=== PATIENT | female | born 1990 | race Caucasian/White ===

== ENCOUNTER 2017-01-26 21:02 | Emergency (ER) | payer OTHER ==
[2017-01-26 21:10] VITALS: BP 128/91; BMI 36.4
[2017-01-26] MEDS ORDERED: ROCEPHIN VIAL 1 GM IM ONE (21:54)
[2017-01-26] MEDS ORDERED: ROCEPHIN VIAL 1 GM ONE (21:56)
--- NOTE | 2017-01-26 21:56 | DR.GENAD ---
HPI - PCP Primary Care Physician: NONE - Complaint/Symptoms Chief Complaint Doctors Comments: Patient reports that she got a sore on her right hip for five days. Rosas not know how it happened. It is sore to touch. Pain is sharp, no fever Chief Complaint:: BITE ABOVE BUTT CHEEK. ONSET SUNDAY. C/O N/V AND FEVER. DENIES ANY DRAINAGE. Self Treatment fo Chief Complaint: TRIED HEAT - Source History Provided: Patient - Mode of Arrival Mode of Arrival: Ambulatory - Timing Onset of Chief Complaint: 01/24/17 PMH - PMH Past Medical History: No Past Medical History: Migraines (for many years ) Past Surgical History: Yes Surgical History: Appendectomy, Cholecystectomy Past Surgical History Comment: LIDIA (2013). EMA (2014) - Family History History of Family Medical Conditions: No Family Medical History: Diabetes Mellitus, [place], Coronary Artery Disease - Social History Does patient currently use any type of tobacco product: No Have you used tobacco products in the last 12 months: No Type of Tobacco Use: None Alcohol Use: None Do you use any recreational Drugs:: No Lives With: Spouse Lives Where: Home - infectious screening Have you traveled outside the country in the last 6 months?: No Isolation: Standard ROS - Review of Systems Constitutional: Diaphoresis ENTM: No Symptoms Reported Respiratoy: No Symptoms Reported Cardiovascular: No Symptoms Reported Gastrointestinal/Abdominal: No Symptoms Reported Genitourinary: No Symptoms Reported Neurological: No Symptoms Reported Musculoskeletal: No Symptoms Reported Integumentary: Lesions (erythematous non fluctuant lesion right hip) Hematologic/Lymphatic: No Symptoms Reported Endocrine: No Symptoms Reported Psychiatric: No Symptoms Reported All Other Systems: Reviewed and Negative PE - Vital Signs Vitals: Temperature 98.3 F Pulse Rate 94 Respiratory Rate 18 Blood Pressure 128/91 O2 Sat by Pulse Oximetry 99 - General Limitations: No Limitations General Appearance: Alert, In No Apparent Distress - Head Head Exam: Normal Inspection, Atraumatic - Eyes Eye exam: Normal Appearance, PERRL, EOMI - ENT ENT Exam: Normal Exam External Ear Exam: Normal External Inspection TM/Canal Exam: Bilateral Normal Nose Exam: Normal Nose Exam Mouth Exam: Normal Inspection - Neck Neck Exam: Normal Inspection - Chest Chest Inspection: Normal Inspection - Respiratory Respiratory Exam: Normal Lung Sounds Bilat Respiratory Exam: Bilateral Clear to Auscultation - Cardiovascular Cardiovascular Exam: Regular Rate, Normal Rhythm - Abdominal Exam Abdominal Exam: Normal Inspection, Normal Bowel Sounds Abdominal Tenderness: negative: RUQ, RLQ, LUQ, LLQ, Epigastrium, Suprapubic, Diffuse, Mild, Moderate, Severe, Other - Extremities Extremities Exam: Normal Inspection, Full ROM - Back Back Exam: Tenderness (right superior hip; erythematous non fluctuant firm mass ) - Neurologic Neurological Exam: Alert, Oriented X3, CN II-XII Intact - Psychiatric Psychiatric Exam: Normal Affect, Normal Mood - Skin Skin Exam: Warm, Dry Course - Treatment Treatment: Ceftriaxone 1gm IM - Diagnosis Discharge Problem: Cellulitis Qualifiers: Site of cellulitis: buttock Qualified Code(s): L03.317 - Cellulitis of buttock - Discharge Plan Condition: Stable - Follow ups/Referrals Follow ups/Referrals: NFD,None [Primary Care Provider] - 3 days - Instructions
== END 2017-01-26 22:18 | disposition home or self-care (01) ==
LOC: ER 21:18
DX: L03.317 Cellulitis of buttock (principal)
CPT/HCPCS: 96372; 99282; J0696

== ENCOUNTER 2017-09-21 15:23 | Emergency (ER) | payer SELFPAY ==
[2017-09-21 15:28] VITALS: BP 124/85; BMI 37.3
[2017-09-21 16:02] LABS: BILIRUBIN,URINE NEGATIVE (NEGATIVE); BLOOD/HEMOGLOBIN,URINE 1+ (NEGATIVE); GLUCOSE, URINE NEGATIVE (NEGATIVE); KETONES,URINE NEGATIVE (NEGATIVE); LEUKOCYTE ESTERASE ,URINE NEGATIVE (NEGATIVE); NITRITES,URINE NEGATIVE (NEGATIVE); PROTEIN,URINE NEGATIVE (NEGATIVE); UROBILINOGEN,URINE NORMAL (NORMAL)
[2017-09-21 16:15] LABS: APPEARANCE,URINE CLEAR (CLEAR); COLOR,URINE YELLOW (YELLOW)
[2017-09-21 16:16] LABS: RBC,URINE 0-2 /HPF (NONE SEEN)
[2017-09-21 16:17] LABS: BACTERIA,URINE NEGATIVE /HPF (NEGATIVE); SQUAMOUS EPITHELIAL CELL,UR FEW /HPF (NEGATIVE)
[2017-09-21 16:34] LABS: BASOPHILS # (AUTO) 0.1 X10^3/uL (0.0-0.1); BASOPHILS % (AUTO) 0.8 % (0.2-1.0); EOSINOPHILS % (AUTO) 0.6 % (0.9-2.9); HEMATOCRIT 40.3 % (36.0-47.0); HEMOGLOBIN 13.7 g/dL (12.0-16.0); LYMPHOCYTES # (AUTO) 1.8 X10^3/uL (1.3-2.9); LYMPHOCYTES % (AUTO) 26.6 % (21.0-51.0); MEAN CORPUSCULAR HEMOGLOBIN 28.6 pg (27.0-34.0); MEAN CORPUSCULAR HGB CONC 34.1 g/dL (33.0-35.0); MEAN CORPUSCULAR VOLUME 83.9 fL (80.0-100.0); MEAN PLATELET VOLUME 8.5 fL (7.4-11.0); MONOCYTES # (AUTO) 0.5 x10^3/uL (0.3-0.8); MONOCYTES % (AUTO) 7.3 % (0.0-13.0); NEUTROPHILS # (AUTO) 4.3 x10^3/uL (2.2-4.8); NEUTROPHILS % (AUTO) 64.7 % (42.0-75.0); PLATELET COUNT 236 X10^3/uL (150.0-450.0); RED CELL DISTRIBUTION WIDTH 14.6 % (11.6-16.5); WHITE BLOOD COUNT 6.6 X10^3/uL (3.6-10.0)
[2017-09-21 16:55] LABS: SERUM PREGNANCY TEST, QUAL NEGATIVE <10 mIU/mL
[2017-09-21 17:04] LABS: ALANINE AMINOTRANSFERASE 54 Units/L (12-78); ALBUMIN 4.2 g/dL (3.4-5.0); ALKALINE PHOSPHATASE 95 Units/L (46-116); AMYLASE 45 Units/L (25-115); ASPARTATE AMINO TRANSFERASE 20 Units/L (15-37); BLOOD UREA NITROGEN 15 mg/dL (7-18); CALCIUM 8.9 mg/dL (8.5-10.1); CARBON DIOXIDE 25.5 mmol/L (21-32); CHLORIDE 105 mmol/L (98-107); CREATININE 0.91 mg/dL (0.55-1.02); LIPASE 176 Units/L (73-393); SODIUM 139 mmol/L (136-145); TOTAL PROTEIN 7.7 g/dL (6.4-8.2); eGFR BLACK RACES > 60 (>60); eGFR NON BLACK RACES > 60 (>60)
[2017-09-21] MEDS ORDERED: NS 100 ML IV 100 ML IV ONE (17:27)
--- NOTE | 2017-09-21 18:06 | CT ---
CT abdomen and pelvis with contrast Indication: Lower abdominal pain Comparison: None available Technique: Multiple axial images of the abdomen and pelvis were obtained from the lung bases to the pubic symphy sis after the administration of IV contrast. Findings: Lung bases are clear. The no focal hepatic lesion is identified. The gallbladder is surgically absent . Bile ducts are normal in caliber. The spleen, adrenal glands and kidneys are normal. The pancreas c ontains an approximate 4.6 x 4.0 cm hypoattenuating lesion with a thin internal septation seen on axi al image 24. There is no surrounding inflammatory change. The remaining pancreas is unremarkable asid e for very mild pancreatic ductal dilatation. The upper GI tract demonstrates no evidence of mass or obstruction. Urinary bladder is normal. Enlarg ed right adnexal cyst measuring approximately 3.9 cm on coronal image 31. Small left adnexal cyst is noted. There is small amount of inflammatory change within the right lower quadrant; however, patient has had prior appendectomy. The rectum and colon are unremarkable. The questionable bowel wall thick ening adjacent to the area of inflammatory change within the right lower quadrant seen on coronal victor manuel ge 18. The abdominal aorta is normal in caliber. No adenopathy identified within the abdomen or pelvi s. No acute osseous abnormality. IMPRESSION: 1. An approximate 4.6 x 4.0 cm hypoattenuating lesion within the pancreatic tail is concerning for cy stic pancreatic neoplasm; IPMN, serous cystadenoma or a solid pseudopapillary epithelial neoplasm are felt to be most likely considerations. Correlation with follow-up nonemergent pancreatic protocol MR I is recommended for improved characterization. There is no surrounding inflammatory change identifie d to suggest acute pancreatitis. 2. Mild inflammatory change in the right lower quadrant potentially represents stranding arising from the enlarged right adnexal cyst however there is questionable thickening of the adjacent distal smal l bowel which can also be seen in setting of an enteritis. Clinical correlation is needed. 3. Previous cholecystectomy and appendectomy. Reported By:
[2017-09-21] MEDS ORDERED: TORADOL 30 MG VIAL ONE (18:50)
[2017-09-21] MEDS ORDERED: TORADOL 30 MG VIAL IVP ONE (18:50)
--- NOTE | 2017-09-21 19:48 | ED.ABDFE ---
HPI - Time seen Time seen: 20:39 (seen on arrival to room) - PCP Primary Care Physician: jose - Complaint Chief Complaint:: Patient c/o suprapubic pain that radiates to rlq with nausea. Pain started last night and intensifies with movement. Patient states she has been nauseated for 4 weeks. - Source History Provided: Patient - Mode of arrival Mode of Arrival: Ambulatory - Timing Onset of Chief Complaint: 09/20/17 PMH - PMH Past Medical History: Yes Past Medical History: Migraines Past Surgical History: Yes Surgical History: Appendectomy, Cholecystectomy - Family History History of Family Medical Conditions: Yes Family Medical History: Diabetes Mellitus, [place], Coronary Artery Disease - Social History Does patient currently use any type of tobacco product: No Have you used tobacco products in the last 12 months: No Type of Tobacco Use: None Does any household member use tobacco: No Do you use any recreational Drugs:: No Lives With: Family Lives Where: Home - infectious screening In the last 2 months have you had wt loss of >10#?: NO Have you had fever, night sweats or hemotysis?: No Have you traveled outside the country in the last 6 months?: No Isolation: Standard PE - Vital Signs Vitals: Temperature 98.2 F Pulse Rate 70 Respiratory Rate 18 Blood Pressure 124/85 O2 Sat by Pulse Oximetry 100 - General Limitations: No Limitations General Appearance: Alert, In No Apparent Distress - Head Head Exam: Normal Inspection - Eyes Eye exam: Normal Appearance - ENT ENT Exam: Normal Exam, Normal Oropharynx - Neck Neck Exam: Normal Inspection - Chest Chest Inspection: Normal Inspection - Respiratory Respiratory Exam: Normal Lung Sounds Bilat Respiratory Exam: Bilateral Clear to Auscultation - Cardiovascular Cardiovascular Exam: Regular Rate, Normal Rhythm - Abdominal Exam Abdominal Exam: Normal Inspection, Normal Bowel Sounds, Tenderness, Other ( suprapubic TTP(mild), rad to RLQ and LLQ) Abdominal Tenderness: RLQ, Suprapubic - Back Back Exam: Normal Inspection. negative: (R) CVA Tenderness, (L) CVA Tenderness , Muscle Spasm, Paraspinal Tenderness - Extremeties Extremities Exam: Normal Inspection, Full ROM - External Exam: Female: Deferred - Neurologic Neurological Exam: Alert, Oriented X3 - Psychiatric Psychiatric Exam: Normal Affect, Normal Mood - Skin Skin Exam: Warm, Dry, Intact ROR - Labs Reviewed Laboratory Results Reviewed?: Yes (lipase nl, preg -) Result Diagrams: 09/21/17 16:25 09/21/17 16:25 Laboratory: WBC 6.6 X10^3/uL (3.6-10.0) 09/21/17 16: RBC 4.80 X10^6/uL (3.5-5.4) 09/21/17 16:25 Hgb 13.7 g/dL (12.0-16.0) 09/21/17 16:25 Hct 40.3 % (36.0-47.0) 09/21/17 16:25 MCV 83.9 fL (80.0-100.0) 09/21/17 16: MCH 28.6 pg (27.0-34.0) 09/21/17 16: MCHC 34.1 g/dL (33.0-35.0) 09/21/17 16: RDW 14.6 % (11.6-16.5) 09/21/17 16: Plt Count 236 X10^3/uL (150.0-450.0) 09/21/17 16:25 MPV 8.5 fL (7.4-11.0) 09/21/17 16:25 Neut % (Auto) 64.7 % (42.0-75.0) 09/21/17 16: Lymph % (Auto) 26.6 % (21.0-51.0) 09/21/17 16:25 Kay % (Auto) 7.3 % (0.0-13.0) 09/21/17 16:25 Eos % (Auto) 0.6 % (0.9-2.9) L 09/21/17 16:25 Baso % (Auto) 0.8 % (0.2-1.0) 09/21/17 16:25 Neut # (Auto) 4.3 x10^3/uL (2.2-4.8) 09/21/17 16:25 Lymph # (Auto) 1.8 X10^3/uL (1.3-2.9) 09/21/17 16:25 Kay # (Auto) 0.5 x10^3/uL (0.3-0.8) 09/21/17 16:25 Eos # (Auto) 0.0 x10^3/uL (0.0-0.2) 09/21/17 16:25 Baso # (Auto) 0.1 X10^3/uL (0.0-0.1) 09/21/17 16:25 Absolute Nucleated RBC 0.1 /100WBC 09/21/17 16:25 Sodium 139 mmol/L (136-145) 09/21/17 16:25 Corrected Sodium TNP 09/21/17 16:25 Potassium 3.9 mmol/L (3.5-5.1) 09/21/17 16:25 Chloride 105 mmol/L (98-107) 09/21/17 16:25 Carbon Dioxide 25.5 mmol/L (21-32) 09/21/17 16:25 BUN 15 mg/dL (7-18) 09/21/17 16:25 Creatinine 0.91 mg/dL (0.55-1.02) 09/21/17 16:25 Est GFR (MDRD) Af Amer > 60 (>60) 09/21/17 16:25 Est GFR (MDRD) Non-Af > 60 (>60) 09/21/17 16:25 Glucose 83 mg/dL (65-99) 09/21/17 16:25 Calcium 8.9 mg/dL (8.5-10.1) 09/21/17 16:25 Corrected Calcium TNP 09/21/17 16:25 Total Bilirubin 0.50 mg/dL (0.2-1.0) 09/21/17 16:25 AST 20 Units/L (15-37) 09/21/17 16:25 ALT 54 Units/L (12-78) 09/21/17 16:25 Alkaline Phosphatase 95 Units/L (46-116) 09/21/17 16:25 Total Protein 7.7 g/dL (6.4-8.2) 09/21/17 16:25 Albumin 4.2 g/dL (3.4-5.0) 09/21/17 16:25 Globulin 3.5 g/dL (2.5-4.5) 09/21/17 16:25 Albumin/Globulin Ratio 1.2 Ratio (1.1-2.1) 09/21/17 16:25 Amylase 45 Units/L (25-115) 09/21/17 16:25 Lipase 176 Units/L (73-393) 09/21/17 16:25 HCG, Qual Negative <10 mIU/mL 09/21/17 16:25 Specimen Type Clean catch urine 09/21/17 15:55 Urine Color Yellow (YELLOW) 09/21/17 15:55 Urine Appearance Clear (CLEAR) 09/21/17 15:55 Urine pH 6.0 (5.0 - 8.0) 09/21/17 15:55 Ur Specific [place] 1.020 (1.000-1.030) 09/21/17 15:55 Urine Protein Negative (NEGATIVE) 09/21/17 15:55 Urine Glucose (UA) Negative (NEGATIVE) 09/21/17 15:55 Urine Ketones Negative (NEGATIVE) 09/21/17 15:55 Urine Occult Blood 1+ (NEGATIVE) 09/21/17 15:55 Urine Nitrite Negative (NEGATIVE) 09/21/17 15:55 Urine Bilirubin Negative (NEGATIVE) 09/21/17 15:55 Urine Urobilinogen Normal (NORMAL) 09/21/17 15:55 Ur Leukocyte Esterase Negative (NEGATIVE) 09/21/17 15:55 Urine RBC 0-2 /HPF (NONE SEEN) 09/21/17 15:55 Urine WBC 0-2 /HPF (NONE SEEN) 09/21/17 15:55 Ur Squamous Epith Cells Few /HPF (NEGATIVE) 09/21/17 15:55 Urine Bacteria Negative /HPF (NEGATIVE) 09/21/17 15:55 Ur Culture Indicated? No/not indicated 09/21/17 15:55 - XRAY XRAY Interpreted by: Radiologist XRAY Findings: CT abd concerning for pancreatic neoplasm, see rpt - Diagnosis Discharge Problem: Abdominal pain, Pancreatic mass - Discharge Plan Disposition: HOME, SELF-CARE Condition: Stable Prescriptions: Ketorolac Tromethamine 10 mg PO TID #15 tablet - Follow ups/Referrals Follow ups/Referrals: NFD,None [Primary Care Provider] - 3 days - Instructions Additional Notes - Additional Notes Additional Notes: spoke at length w/pt re:CT findings. Lesion was noted previously, pt told 'dont worry about it'. I strongly urged pt to get f/u MRI as suggested. Pt given toradol in ER, felt better. Will d/c home with close f/ u with PCP.
== END 2017-09-21 19:55 | disposition home or self-care (01) ==
LOC: ER 15:34
DX: K86.9 Disease of pancreas, unspecified (principal); R10.31 Right lower quadrant pain
CPT/HCPCS: 36415; 74177; 80053; 81001; 82150; 83690; 84703; 85025; 96365; 96374; 99283; A4222; J1885

== ENCOUNTER 2021-06-07 19:07 | Observation (INO) ==
[2021-06-07 19:16] VITALS: BMI 35.9
--- NOTE | 2021-06-07 21:37 | DR.GENAD ---
HPI Time Seen Time Seen by Provider: 06/07/21 21:34 Complaint/Symptoms Chief Complaint:: PT AMBULATORY IN THE ER TODAY IN NO DISTRESS PT STATES THAT AFTER SHE LEFT THE ER TODAY HER HEART HAS BEEN RACING EVERY TIME SHE GETS UP AND SHE GETS OUT OF BREATH EVERY TIME SHE WALKS. PT STATES SHE WAS TAKING A SHOWER TO TRY TO FEEL BETTER AND ABOUT PASSED OUT IN THE SHOWER. COVID-19 Coronavirus risk:travel/contact w/high risk person: No Has patient experienced Coronavirus symptoms: No Source History Provided: Patient Mode of Arrival Mode of Arrival: Ambulatory Timing Onset of Chief Complaint: 06/07/21 PMH PMH Past Medical History: No Past Medical History: Migraines Past Surgical History: Yes Surgical History: Appendectomy Past Surgical History Comment: GALLBLADDER Family History History of Family Medical Conditions: Yes Family Medical History: Diabetes Mellitus, Heart Failure and Hypertension Social History Does patient currently use any type of tobacco product: No Have you used tobacco products in the last 12 months: No Type of Tobacco Use: None Does any household member use tobacco: No Alcohol Use: None Do you use any recreational Drugs:: No Lives With: Spouse Lives Where: Home Travel Risk Coronavirus risk:travel/contact w/high risk person: No Has patient experienced Coronavirus symptoms: No Infectious screening In the last 2 months have you had wt loss of >10#?: NO Have you had fever, night sweats or hemotysis?: No Have you traveled outside the country in the last 6 months?: No Isolation: Standard PE Vital Signs Vitals: Temperature 98.2 F Pulse Rate [Left Brachial] 78 Pulse Rate 99 Respiratory Rate 18 Blood Pressure [Left Arm] 119/68 Blood Pressure 122/82 O2 Sat by Pulse Oximetry 100 ROR Labs Reviewed Result Diagrams: 06/07/21 21:35 06/07/21 21:35 Laboratory: WBC 7.6 X10^3/uL (3.6-10.0) 06/07/21 21:35 RBC 3.43 X10^6/uL (3.5-5.4) L 06/07/21 21:35 Hgb 9.8 g/dL (12.0-16.0) L 06/07/21 21:35 Hct 28.3 % (36.0-47.0) L 06/07/21 21:35 MCV 82.6 fL (80.0-100.0) 06/07/21 21:35 MCH 28.7 pg (27.0-34.0) 06/07/21 21:35 MCHC 34.7 g/dL (33.0-35.0) 06/07/21 21:35 RDW 14.2 % (11.6-16.5) 06/07/21 21:35 Plt Count 303 X10^3/uL (150.0-450.0) 06/07/21 21:35 MPV 7.8 fL (7.4-11.0) 06/07/21 21:35 Neut % (Auto) 69.0 % (42.0-75.0) 06/07/21 21:35 Lymph % (Auto) 24.6 % (21.0-51.0) 06/07/21 21:35 [place] % (Auto) 5.1 % (0.0-13.0) 06/07/21 21:35 Eos % (Auto) 0.3 % (0.9-2.9) L 06/07/21 21:35 Baso % (Auto) 1.0 % (0.2-1.0) 06/07/21 21:35 Neut # (Auto) 5.2 x10^3/uL (2.2-4.8) H 06/07/21 21:35 Lymph # (Auto) 1.9 X10^3/uL (1.3-2.9) 06/07/21 21:35 Frederick # (Auto) 0.4 x10^3/uL (0.3-0.8) 06/07/21 21:35 Eos # (Auto) 0.0 x10^3/uL (0.0-0.2) 06/07/21 21:35 Baso # (Auto) 0.1 X10^3/uL (0.0-0.1) 06/07/21 21:35 Absolute Nucleated RBC 0.1 /100WBC 06/07/21 21:35 Sodium 134 mmol/L (136-145) L 06/07/21 21:35 Corrected Sodium 134 mmol/L (136-145) L 06/07/21 21:35 Potassium 3.7 mmol/L (3.5-5.1) 06/07/21 21:35 Chloride 101 mmol/L (98-107) 06/07/21 21:35 Carbon Dioxide 24.5 mmol/L (21-32) 06/07/21 21:35 BUN 13 mg/dL (7-18) 06/07/21 21:35 Creatinine 0.87 mg/dL (0.55-1.02) 06/07/21 21:35 Est GFR (MDRD) Af Amer > 60 (>60) 06/07/21 21:35 Est GFR (MDRD) Non-Af > 60 (>60) 06/07/21 21:35 Glucose 117 mg/dL (65-99) H 06/07/21 21:35 Calcium 8.6 mg/dL (8.5-10.1) 06/07/21 21:35 Corrected Calcium TNP 06/07/21 21:35 Total Bilirubin 0.30 mg/dL (0.2-1.0) 06/07/21 21:35 AST 18 Units/L (15-37) 06/07/21 21:35 ALT 41 Units/L (12-78) 06/07/21 21:35 Alkaline Phosphatase 88 Units/L (46-116) 06/07/21 21:35 Creatine Kinase 58 Units/L (26-192) 06/07/21 21:35 CK-MB (CK-2) < 1.0 ng/mL (0-4.0) 06/07/21 21:35 CK/CKMB % Calc 1.7 % (<4) 06/07/21 21:35 Troponin I < 0.02 ng/mL (0-1.5) 06/07/21 21:35 Total Protein 6.7 g/dL (6.4-8.2) 06/07/21 21:35 Albumin 3.7 g/dL (3.4-5.0) 06/07/21 21:35 Globulin 3.0 g/dL (2.5-4.5) 06/07/21 21:35 Albumin/Globulin Ratio 1.2 Ratio (1.1-2.1) 06/07/21 21:35 SARS CoV-2 RNA Rapid MALIK Negative (NEGATIVE) 06/08/21 00:54 Opioid Opioid Risk Tool Age (Rony box if 16-45): Yes History of Preadolescent Sexual Abuse: No Total: 1 Total Score Risk Category: Low Risk Copyright: Jese LAWS predicting aberrant behaviors Instructions Forms: Precautions for COVID19 [facility] Social Distancing
[2021-06-07 21:44] LABS: BASOPHILS # (AUTO) 0.1 X10^3/uL (0.0-0.1); EOSINOPHILS % (AUTO) 0.3 % (0.9-2.9); HEMATOCRIT 28.3 % (36.0-47.0); HEMOGLOBIN 9.8 g/dL (12.0-16.0); LYMPHOCYTES # (AUTO) 1.9 X10^3/uL (1.3-2.9); LYMPHOCYTES % (AUTO) 24.6 % (21.0-51.0); MEAN CORPUSCULAR HEMOGLOBIN 28.7 pg (27.0-34.0); MEAN CORPUSCULAR HGB CONC 34.7 g/dL (33.0-35.0); MEAN CORPUSCULAR VOLUME 82.6 fL (80.0-100.0); MEAN PLATELET VOLUME 7.8 fL (7.4-11.0); MONOCYTES # (AUTO) 0.4 x10^3/uL (0.3-0.8); MONOCYTES % (AUTO) 5.1 % (0.0-13.0); NEUTROPHILS # (AUTO) 5.2 x10^3/uL (2.2-4.8); PLATELET COUNT 303 X10^3/uL (150.0-450.0); RED BLOOD COUNT 3.43 X10^6/uL (3.5-5.4); RED CELL DISTRIBUTION WIDTH 14.2 % (11.6-16.5); WHITE BLOOD COUNT 7.6 X10^3/uL (3.6-10.0)
[2021-06-07] MEDS ORDERED: NS 1,000 ML IV 1,000 ML IV ONE (21:48)
[2021-06-07] MEDS ORDERED: NS 1,000 ML IV 1,000 ML ONE ×2 (21:49→23:56)
[2021-06-07 22:13] LABS: ALANINE AMINOTRANSFERASE 41 Units/L (12-78); ALBUMIN 3.7 g/dL (3.4-5.0); ALKALINE PHOSPHATASE 88 Units/L (46-116); ASPARTATE AMINO TRANSFERASE 18 Units/L (15-37); BLOOD UREA NITROGEN 13 mg/dL (7-18); CALCIUM 8.6 mg/dL (8.5-10.1); CARBON DIOXIDE 24.5 mmol/L (21-32); CHLORIDE 101 mmol/L (98-107); CKMB % 1.7 % (<4); COR NA(FOR HYPERGLY) 134 mmol/L (136-145); CREATINE KINASE 58 Units/L (26-192); CREATINE KINASE MB < 1.0 ng/mL (0-4.0); CREATININE 0.87 mg/dL (0.55-1.02); SODIUM 134 mmol/L (136-145); TOTAL PROTEIN 6.7 g/dL (6.4-8.2); TROPONIN I < 0.02 ng/mL (0-1.5); eGFR NON BLACK RACES > 60 (>60)
[2021-06-08] MEDS: NS 1,000 ML IV 1,000 ML IV SCH ×3 (00:01→16:13)
[2021-06-08] MEDS ORDERED: TYLENOL 500 MG TAB EXTRA STRENGTH PO ONE ×2 (00:52→00:55)
[2021-06-08] MEDS: ZOFRAN INJ 4 MG VIAL IVP PRN ×2 (02:15→21:45)
[2021-06-08] MEDS ORDERED: TYLENOL 325 MG TAB PO ONE (05:30)
[2021-06-08] MEDS: TYLENOL 325 MG TAB PO PRN ×2 (05:34→10:51)
[2021-06-08 06:13] LABS: BASOPHILS # (AUTO) 0.1 X10^3/uL (0.0-0.1); BASOPHILS % (AUTO) 0.8 % (0.2-1.0); EOSINOPHILS % (AUTO) 0.3 % (0.9-2.9); HEMATOCRIT 23.2 % (36.0-47.0); HEMOGLOBIN 8.2 g/dL (12.0-16.0); LYMPHOCYTES # (AUTO) 1.8 X10^3/uL (1.3-2.9); LYMPHOCYTES % (AUTO) 24.8 % (21.0-51.0); MEAN CORPUSCULAR HEMOGLOBIN 29.2 pg (27.0-34.0); MEAN CORPUSCULAR HGB CONC 35.1 g/dL (33.0-35.0); MEAN CORPUSCULAR VOLUME 83.1 fL (80.0-100.0); MEAN PLATELET VOLUME 7.7 fL (7.4-11.0); MONOCYTES # (AUTO) 0.3 x10^3/uL (0.3-0.8); MONOCYTES % (AUTO) 4.6 % (0.0-13.0); NEUTROPHILS % (AUTO) 69.5 % (42.0-75.0); PLATELET COUNT 264 X10^3/uL (150.0-450.0); RED BLOOD COUNT 2.79 X10^6/uL (3.5-5.4); RED CELL DISTRIBUTION WIDTH 14.3 % (11.6-16.5); WHITE BLOOD COUNT 7.1 X10^3/uL (3.6-10.0)
[2021-06-08 06:29] LABS: ALANINE AMINOTRANSFERASE 35 Units/L (12-78); ALBUMIN 3.1 g/dL (3.4-5.0); ALKALINE PHOSPHATASE 73 Units/L (46-116); ASPARTATE AMINO TRANSFERASE 14 Units/L (15-37); BLOOD UREA NITROGEN 11 mg/dL (7-18); CALCIUM 7.8 mg/dL (8.5-10.1); CARBON DIOXIDE 24.9 mmol/L (21-32); CHLORIDE 104 mmol/L (98-107); COR CA(FOR HYPOALB) 8.5 mg/dL (8.5-10.1); CREATININE 0.83 mg/dL (0.55-1.02); SODIUM 136 mmol/L (136-145); TOTAL PROTEIN 5.9 g/dL (6.4-8.2); eGFR NON BLACK RACES > 60 (>60)
[2021-06-08 08:47] LABS: IRON 24 ug/dL (50-175)
--- NOTE | 2021-06-08 10:24 | DR.SSS ---
SHORT STAY SUMMARY Admission Date Date of Admission: 06/07/21 Discharge Date Discharge Date: 06/08/21 Admission Diagnoses Admission Diagnoses: Menorrhagia Anemia Discharge Diagnoses Discharge Diagnoses: Menorrhagia Anemia Chief Complaint Chief Complaint: Dizziness History of Present Illness History of Present Illness: Pt is a 30 year old female presenting with heavy menstrual bleeding for the past few days. She reports her menstrual cycles are irregular and often occur every three months. She states her cycle completed earlier this month on the and then restarted again on the . She reports large clots. Pt went to ED earlier and was discharged, however returned after almost "passing out" at home in the shower. Her hemoglobin in the ED did drop from 11.1 to 9.8. Pt admitted for observation. Past Medical History Past Medical History: Migraines Past Surgical History Surgical History: Appendectomy and Cholecystectomy Allergies Allergies Allergy/AdvReac Type Severity Reaction Status Date / Time No Known Drug Allergies Allergy Verified 01/24/20 12:46 Medications Home Medications: No Known Drug Allergies Allergy (Verified 01/24/20 12:46) Family History Family Medical History: Diabetes Mellitus, [place], Coronary Artery Disease, Heart Failure and Hypertension Social History Does patient currently use any type of tobacco product: No Have you used tobacco products in the last 12 months: No Type of Tobacco Use: None Does any household member use tobacco: No Alcohol Use: None Drug Use: None Review of Systems Constitutional: Weakness and Other (Dizziness, lightheaded); denies Fever and Chills Eyes: No Symptoms Reported ENT: No Symptoms Reported Respiratory: No Symptoms Reported Cardiovascular: No Symptoms Reported Gastrointestinal: Abdominal Pain (cramping) Genitourinary: No Symptoms Reported Musculoskeletal: No Symptoms Reported Skin: No Symptoms Reported Neurological: No Symptoms Reported Physical Exam Vital Signs: Last Vital Signs Temp 97.8 F 06/08/21 08:00 Pulse 80 06/08/21 08:00 Resp 20 06/08/21 08:00 BP 114/58 06/08/21 08:00 Pulse Ox 98 06/08/21 08:00 Oriented: Normal Eyes: Normal Ear: Normal Nose: Normal Throat: Normal Respiratory: Clear Throughout Cardiovascular: Normal : Normal Auscultation: Bowel Sounds: Normal Palpation: Normal Tenderness: Normal Skin: Normal Musculoskeletal: Normal Psychiatric: Normal Mood Description: Calm Affect: Normal Speech Pattern: Clear Labs Labs: Laboratory Last Values WBC 7.1 X10^3/uL (3.6-10.0) 06/08/21 05:32 RBC 2.79 X10^6/uL (3.5-5.4) L 06/08/21 05:32 Hgb 8.2 g/dL (12.0-16.0) L 06/08/21 05:32 Hct 23.2 % (36.0-47.0) L 06/08/21 05:32 MCV 83.1 fL (80.0-100.0) 06/08/21 05:32 MCH 29.2 pg (27.0-34.0) 06/08/21 05:32 MCHC 35.1 g/dL (33.0-35.0) H 06/08/21 05:32 RDW 14.3 % (11.6-16.5) 06/08/21 05:32 Plt Count 264 X10^3/uL (150.0-450.0) 06/08/21 05:32 MPV 7.7 fL (7.4-11.0) 06/08/21 05:32 Neut % (Auto) 69.5 % (42.0-75.0) 06/08/21 05:32 Lymph % (Auto) 24.8 % (21.0-51.0) 06/08/21 05:32 [place] % (Auto) 4.6 % (0.0-13.0) 06/08/21 05:32 Eos % (Auto) 0.3 % (0.9-2.9) L 06/08/21 05:32 Baso % (Auto) 0.8 % (0.2-1.0) 06/08/21 05:32 Neut # (Auto) 5.0 x10^3/uL (2.2-4.8) H 06/08/21 05:32 Lymph # (Auto) 1.8 X10^3/uL (1.3-2.9) 06/08/21 05:32 [place] # (Auto) 0.3 x10^3/uL (0.3-0.8) 06/08/21 05:32 Eos # (Auto) 0.0 x10^3/uL (0.0-0.2) 06/08/21 05:32 Baso # (Auto) 0.1 X10^3/uL (0.0-0.1) 06/08/21 05:32 Absolute Nucleated RBC 0.1 /100WBC 06/08/21 05:32 Sodium 136 mmol/L (136-145) 06/08/21 05:32 Corrected Sodium TNP 06/08/21 05:32 Potassium 3.2 mmol/L (3.5-5.1) L 06/08/21 05:32 Chloride 104 mmol/L (98-107) 06/08/21 05:32 Carbon Dioxide 24.9 mmol/L (21-32) 06/08/21 05:32 BUN 11 mg/dL (7-18) 06/08/21 05:32 Creatinine 0.83 mg/dL (0.55-1.02) 06/08/21 05:32 Est GFR (MDRD) Af Amer > 60 (>60) 06/08/21 05:32 Est GFR (MDRD) Non-Af > 60 (>60) 06/08/21 05:32 Glucose 92 mg/dL (65-99) 06/08/21 05:32 Calcium 7.8 mg/dL (8.5-10.1) L 06/08/21 05:32 Corrected Calcium 8.5 mg/dL (8.5-10.1) 06/08/21 05:32 Iron 24 ug/dL (50-175) L 06/08/21 05:32 Ferritin 15 ng/mL (8-252) 06/08/21 05:32 Total Bilirubin 0.30 mg/dL (0.2-1.0) 06/08/21 05:32 AST 14 Units/L (15-37) L 06/08/21 05:32 ALT 35 Units/L (12-78) 06/08/21 05:32 Alkaline Phosphatase 73 Units/L (46-116) 06/08/21 05:32 Creatine Kinase 58 Units/L (26-192) 06/07/21 21:35 CK-MB (CK-2) < 1.0 ng/mL (0-4.0) 06/07/21 21:35 CK/CKMB % Calc 1.7 % (<4) 06/07/21 21:35 Troponin I < 0.02 ng/mL (0-1.5) 06/07/21 21:35 Total Protein 5.9 g/dL (6.4-8.2) L 06/08/21 05:32 Albumin 3.1 g/dL (3.4-5.0) L 06/08/21 05:32 Globulin 2.8 g/dL (2.5-4.5) 06/08/21 05:32 Albumin/Globulin Ratio 1.1 Ratio (1.1-2.1) 06/08/21 05:32 SARS CoV-2 RNA Rapid MALIK Negative (NEGATIVE) 06/08/21 00:54 Assessment/Plan (1) Menorrhagia: (2) Anemia: Hospital Course Hospital Course: Pt was started on IVF and monitored. On exam in the morning she reported that the bleeding had slowed down considerably and that she feels a lot better than she did last night. She is able to ambulate without feeling lightheaded or dizzy. Her hemoglobin is stable at 8.2. Iron level was checked that was significantly low. Iron infusion was ordered and patient received before discharge. Pt discharged home in stable condition. She has appointment next Sunday with gynecology. Pt instructed to follow up with scheduled appointment next week. Discharge Medications Discharge Medications: Prescriptions: Discharge Disposition Discharge Disposition: Home
[2021-06-08] MEDS ORDERED: NS 100 ML IV 100 ML with VENOFER 400 MG IV NR ×2 (11:00)
[2021-06-08 16:14] LABS: SERUM PREGNANCY TEST, QUAL NEGATIVE <10 mIU/mL
[2021-06-08] MEDS: PATIENT'S HOME MEDICATION PO SCH (16:14)
[2021-06-08] MEDS ORDERED: NORCO 5/325 MG TAB PO PRN (18:14)
[2021-06-08 18:16] LABS: HEMATOCRIT 20.7 % (36.0-47.0); HEMOGLOBIN 7.1 g/dL (12.0-16.0)
[2021-06-09] MEDS ORDERED: NS 250 ML IV 250 ML IV ONE (00:52)
[2021-06-09 05:01] LABS: HEMATOCRIT 23.4 % (36.0-47.0); HEMOGLOBIN 8.1 g/dL (12.0-16.0)
[2021-06-09] MEDS: ZOFRAN INJ 4 MG VIAL IVP PRN ×2 (08:54→15:17)
[2021-06-09] MEDS: PATIENT'S HOME MEDICATION PO SCH (08:54)
[2021-06-09] MEDS: TYLENOL 325 MG TAB PO PRN (12:06)
[2021-06-09] MEDS ORDERED: PHENERGAN INJ 25 MG IM PRN (12:26)
[2021-06-09 18:16] LABS: HEMATOCRIT 24.2 % (36.0-47.0); HEMOGLOBIN 8.5 g/dL (12.0-16.0)
--- NOTE | 2021-06-09 22:12 | US ---
PROCEDURE: Ultrasound pelvis transabdominal.HISTORY: Menorrhagia and anemia.TECHNIQUE: Grayscale and color Doppler evaluation was performed of the pelvis transabdominally.COMPARISON: None .TECHNICAL QUALITY: Satisfactory .FINDINGS:Uterus measures 7.8 by 4.5 x 5.6 cm in size and appears anteverted with no masses. Mildly thickened endometrium at 11 mm.Right ovary appears normal and measures 4.1 x 3.3 x 2.2 cm in size with normal color Doppler flow.Normal left ovary measuring 4.8 x 3.9 x 2.3 cm in size with normal color Doppler flow.Small amount of fluid in the cul de sac and left adnexal. No pelvic masses.IMPRESSION:1. Minimal thickening of the endometrium with no other uterine abnormality.2. Small amount of fluid in the cul de sac left adnexal that may be physiologic.3. No other abnormality identified.Electronically signed by: Jack Heard (Jun 09, 2021 22:10:52)
[2021-06-10] MEDS: TYLENOL 325 MG TAB PO PRN (03:40)
[2021-06-10 05:29] LABS: BASOPHILS # (AUTO) 0.1 X10^3/uL (0.0-0.1); BASOPHILS % (AUTO) 1.3 % (0.2-1.0); EOSINOPHILS % (AUTO) 0.6 % (0.9-2.9); HEMATOCRIT 21.6 % (36.0-47.0); HEMOGLOBIN 7.5 g/dL (12.0-16.0); LYMPHOCYTES # (AUTO) 2.1 X10^3/uL (1.3-2.9); LYMPHOCYTES % (AUTO) 30.8 % (21.0-51.0); MEAN CORPUSCULAR HEMOGLOBIN 28.8 pg (27.0-34.0); MEAN CORPUSCULAR HGB CONC 34.8 g/dL (33.0-35.0); MEAN CORPUSCULAR VOLUME 82.8 fL (80.0-100.0); MEAN PLATELET VOLUME 7.8 fL (7.4-11.0); MONOCYTES # (AUTO) 0.5 x10^3/uL (0.3-0.8); MONOCYTES % (AUTO) 6.9 % (0.0-13.0); NEUTROPHILS # (AUTO) 4.1 x10^3/uL (2.2-4.8); NEUTROPHILS % (AUTO) 60.4 % (42.0-75.0); PLATELET COUNT 248 X10^3/uL (150.0-450.0); RED BLOOD COUNT 2.61 X10^6/uL (3.5-5.4); RED CELL DISTRIBUTION WIDTH 13.9 % (11.6-16.5); WHITE BLOOD COUNT 6.7 X10^3/uL (3.6-10.0)
[2021-06-10 05:56] LABS: ALANINE AMINOTRANSFERASE 24 Units/L (12-78); ALBUMIN 3.1 g/dL (3.4-5.0); ALKALINE PHOSPHATASE 62 Units/L (46-116); ASPARTATE AMINO TRANSFERASE 23 Units/L (15-37); BLOOD UREA NITROGEN 9 mg/dL (7-18); CALCIUM 8.2 mg/dL (8.5-10.1); CARBON DIOXIDE 23.5 mmol/L (21-32); CHLORIDE 103 mmol/L (98-107); COR CA(FOR HYPOALB) 8.9 mg/dL (8.5-10.1); CREATININE 0.92 mg/dL (0.55-1.02); SODIUM 137 mmol/L (136-145); TOTAL PROTEIN 5.8 g/dL (6.4-8.2); eGFR NON BLACK RACES > 60 (>60)
[2021-06-10] MEDS ORDERED: K-RIDER 10 MEQ/NS 100 ML 10 MEQ/100 ML BAG IV PRN (05:56)
[2021-06-10] MEDS ORDERED: KLOR-CON PO PRN (05:56)
[2021-06-10] MEDS ORDERED: POTASSIUM CHLORIDE LIQ 20 MEQ UDC PO PRN (05:56)
[2021-06-10] MEDS ORDERED: K-DUR TAB 20 MEQ PO PRN (05:56)
[2021-06-10] MEDS ORDERED: MICRO K EXTEN CAP 10 MEQ PO PRN (05:56)
[2021-06-10] MEDS: PATIENT'S HOME MEDICATION PO SCH (08:45)
[2021-06-10] MEDS ORDERED: NS 500 ML IV 500 ML IV ONE ×2 (10:39)
[2021-06-10 12:08] VITALS: BP 125/73
--- NOTE | 2021-06-10 13:08 | PCM.PROG ---
Progress Note Progress Note for Day of Date of Exam: 06/09/21 Subjective Subjective: Pt is a 30 year old female admitted for symptomatic anemia secondary to menorrhagia. Her hemoglobin did drop overnight to 7.1 and she was transfused 1 unit packed red blood cells. Her hemoglobin is now up to 8.4. She does continue to have heavy menstrual bleeding with clots. Vitals have remained stable. Gynecology was consulted, patient was started on control pills and ultrasound of the pelvis was ordered. Will continue to monitor, trend H/H, and follow up results. Past Medical Family Social History Past Med/Fam/Surg Hx: No changes since H&P Allergies: Allergies No Known Drug Allergies Allergy (Verified 01/24/20 12:46) Review of Systems ROS: No change since H&P Vital Signs and I&O's Vital Signs: Temperature 98.1 F Pulse Rate [Left Brachial] 86 Pulse Rate 99 Respiratory Rate 20 Blood Pressure [Left Arm] 125/73 Blood Pressure 122/82 O2 Sat by Pulse Oximetry 100 Intake and Output: Intake & Output 06/07/21 06/08/21 06/09/21 06/10/21 23:59 23:59 23:59 23:59 Intake Total 2703 / 2703 4080 / 4080 850 / 850 Balance 2703 / 2703 4080 / 4080 850 / 850 Physical Exam Oriented: Normal Eyes: Normal Ear: Normal Nose: Normal Throat: Normal Respiratory: Normal Cardiovascular: Normal : Normal Auscultation: Bowel Sounds: Normal Tenderness: Normal Skin: Normal Musculoskeletal: Normal Psychiatric: Normal Mood Description: Calm Affect: Normal Speech Pattern: Clear and Appropriate Laboratory and Diagnostics Result Diagrams: 06/10/21 04:18 06/10/21 09:05 Labs: Laboratory WBC 6.7 X10^3/uL (3.6-10.0) 06/10/21 04:18 RBC 2.61 X10^6/uL (3.5-5.4) L 06/10/21 04:18 Hgb 7.5 g/dL (12.0-16.0) L 06/10/21 04:18 Hct 21.6 % (36.0-47.0) L 06/10/21 04:18 MCV 82.8 fL (80.0-100.0) 06/10/21 04:18 MCH 28.8 pg (27.0-34.0) 06/10/21 04:18 MCHC 34.8 g/dL (33.0-35.0) 06/10/21 04:18 RDW 13.9 % (11.6-16.5) 06/10/21 04:18 Plt Count 248 X10^3/uL (150.0-450.0) 06/10/21 04:18 MPV 7.8 fL (7.4-11.0) 06/10/21 04:18 Neut % (Auto) 60.4 % (42.0-75.0) 06/10/21 04:18 Lymph % (Auto) 30.8 % (21.0-51.0) 06/10/21 04:18 [place] % (Auto) 6.9 % (0.0-13.0) 06/10/21 04:18 Eos % (Auto) 0.6 % (0.9-2.9) L 06/10/21 04:18 Baso % (Auto) 1.3 % (0.2-1.0) H 06/10/21 04:18 Neut # (Auto) 4.1 x10^3/uL (2.2-4.8) 06/10/21 04:18 Lymph # (Auto) 2.1 X10^3/uL (1.3-2.9) 06/10/21 04:18 [place] # (Auto) 0.5 x10^3/uL (0.3-0.8) 06/10/21 04:18 Eos # (Auto) 0.0 x10^3/uL (0.0-0.2) 06/10/21 04:18 Baso # (Auto) 0.1 X10^3/uL (0.0-0.1) 06/10/21 04:18 Absolute Nucleated RBC 0.1 /100WBC 06/10/21 04:18 Sodium 137 mmol/L (136-145) 06/10/21 04:18 Corrected Sodium TNP 06/10/21 04:18 Potassium 3.5 mmol/L (3.5-5.1) 06/10/21 09:05 Chloride 103 mmol/L (98-107) 06/10/21 04:18 Carbon Dioxide 23.5 mmol/L (21-32) 06/10/21 04:18 BUN 9 mg/dL (7-18) 06/10/21 04:18 Creatinine 0.92 mg/dL (0.55-1.02) 06/10/21 04:18 Est GFR (MDRD) Af Amer > 60 (>60) 06/10/21 04:18 Est GFR (MDRD) Non-Af > 60 (>60) 06/10/21 04:18 Glucose 83 mg/dL (65-99) 06/10/21 04:18 Calcium 8.2 mg/dL (8.5-10.1) L 06/10/21 04:18 Corrected Calcium 8.9 mg/dL (8.5-10.1) 06/10/21 04:18 Magnesium 2.3 mg/dL (1.7-2.9) 06/10/21 04:18 Iron 24 ug/dL (50-175) L 06/08/21 05:32 Ferritin 15 ng/mL (8-252) 06/08/21 05:32 Total Bilirubin 0.50 mg/dL (0.2-1.0) 06/10/21 04:18 AST 23 Units/L (15-37) 06/10/21 04:18 ALT 24 Units/L (12-78) 06/10/21 04:18 Alkaline Phosphatase 62 Units/L (46-116) 06/10/21 04:18 Creatine Kinase 58 Units/L (26-192) 06/07/21 21:35 CK-MB (CK-2) < 1.0 ng/mL (0-4.0) 06/07/21 21:35 CK/CKMB % Calc 1.7 % (<4) 06/07/21 21:35 Troponin I < 0.02 ng/mL (0-1.5) 06/07/21 21:35 Total Protein 5.8 g/dL (6.4-8.2) L 06/10/21 04:18 Albumin 3.1 g/dL (3.4-5.0) L 06/10/21 04:18 Globulin 2.7 g/dL (2.5-4.5) 06/10/21 04:18 Albumin/Globulin Ratio 1.1 Ratio (1.1-2.1) 06/10/21 04:18 HCG, Qual Negative <10 mIU/mL 06/08/21 05:32 SARS CoV-2 RNA Rapid MALIK Negative (NEGATIVE) 06/08/21 00:54 Blood Type A NEGATIVE 06/08/21 23:31 Antibody Screen Negative 06/08/21 23:31 Crossmatch See Detail 06/08/21 23:31 Plan (1) Menorrhagia: Status: Acute Qualifiers: Menorrhagia type: with irregular cycle Qualified Code(s): N92.1 - Excessive and frequent menstruation with irregular cycle (2) Anemia: Status: Acute Qualifiers: Anemia type: iron deficiency (3) Symptomatic anemia: Status: Acute (4) Acute hypokalemia: Status: Acute Plan: Replete per protocol.
--- NOTE | 2021-06-10 13:15 | W.DIS.FURT ---
Summary of Discharge Discharge Summary of Date Date of Exam: 06/10/21 Admission Date Date of Admission: 06/07/21 Admission Diagnosis Hospital Course: Pt is a 30 year old female admitted for symptomatic anemia secondary to menorrhagia. Pt was having daily persistent heavy menstrual bleeding with clots. She required a total of 2 units of packed red blood cells and her hemoglobin did stabilize at 9.5. She also received iron infusion for iron deficiency anemia. Gynecology was consulted, patient was started on control pills and ultrasound of the pelvis was ordered that did not reveal any acute findings. Pt was discharged home in stable condition. Instructed to continue control, follow up with her pcp and has appointment to see her real estate economist on Sunday. Vital Signs: Vital Signs (72 hours) 06/07/21 13:16 06/07/21 19:09 06/07/21 21:30 Temperature 98.2 F Pulse Rate 99 H Pulse Rate [Left Brachial] 82 Respiratory Rate 18 18 Blood Pressure 122/82 Blood Pressure [Left Arm] 125/68 128/86 O2 Sat by Pulse Oximetry 99 99 06/07/21 23:38 06/08/21 00:58 06/08/21 01:57 Temperature Pulse Rate Pulse Rate [Left Brachial] 78 76 Respiratory Rate 20 18 18 Blood Pressure Blood Pressure [Left Arm] 119/68 125/73 O2 Sat by Pulse Oximetry 100 100 06/08/21 04:00 06/08/21 05:34 06/08/21 06:29 Temperature 98.2 F Pulse Rate Pulse Rate [Left Brachial] 99 H Respiratory Rate 22 18 18 Blood Pressure Blood Pressure [Left Arm] 126/70 O2 Sat by Pulse Oximetry 100 06/08/21 08:00 06/08/21 10:51 06/08/21 11:51 Temperature 97.8 F Pulse Rate Pulse Rate [Left Brachial] 80 Respiratory Rate 20 20 18 Blood Pressure Blood Pressure [Left Arm] 114/58 O2 Sat by Pulse Oximetry 98 06/08/21 12:00 06/08/21 16:00 06/08/21 18:52 Temperature 98.4 F 98.2 F Pulse Rate Pulse Rate [Left Brachial] 76 84 Respiratory Rate 20 20 20 Blood Pressure Blood Pressure [Left Arm] 118/60 118/75 O2 Sat by Pulse Oximetry 100 100 06/08/21 19:52 06/08/21 20:00 06/09/21 00:00 Temperature 98.2 F 98.0 F Pulse Rate Pulse Rate [Left Brachial] 95 H 99 H Respiratory Rate 21 21 22 Blood Pressure Blood Pressure [Left Arm] 125/63 132/77 O2 Sat by Pulse Oximetry 100 100 06/09/21 04:00 06/09/21 08:00 06/09/21 12:00 Temperature 98.2 F 99 F 98.8 F Pulse Rate Pulse Rate [Left Brachial] 98 H 108 H 104 H Respiratory Rate 18 18 18 Blood Pressure Blood Pressure [Left Arm] 117/70 133/65 120/68 O2 Sat by Pulse Oximetry 100 98 99 06/09/21 12:06 06/09/21 13:06 06/09/21 16:00 Temperature 98.1 F Pulse Rate Pulse Rate [Left Brachial] 104 H Respiratory Rate 20 21 18 Blood Pressure Blood Pressure [Left Arm] 121/64 O2 Sat by Pulse Oximetry 100 06/09/21 20:00 06/10/21 00:00 06/10/21 03:40 Temperature 98.8 F 98.3 F Pulse Rate Pulse Rate [Left Brachial] 90 100 H Respiratory Rate 22 17 22 Blood Pressure Blood Pressure [Left Arm] 133/83 119/75 O2 Sat by Pulse Oximetry 99 96 06/10/21 04:00 06/10/21 04:40 06/10/21 08:00 Temperature 98.5 F 98.7 F Pulse Rate Pulse Rate [Left Brachial] 92 H 94 H Respiratory Rate 22 22 20 Blood Pressure Blood Pressure [Left Arm] 133/85 113/63 O2 Sat by Pulse Oximetry 97 99 06/10/21 12:00 Temperature 98.1 F Pulse Rate Pulse Rate [Left Brachial] 86 Respiratory Rate 20 Blood Pressure Blood Pressure [Left Arm] 125/73 O2 Sat by Pulse Oximetry 100 Labs: Laboratory Last Values WBC 6.7 X10^3/uL (3.6-10.0) 06/10/21 04:18 RBC 2.61 X10^6/uL (3.5-5.4) L 06/10/21 04:18 Hgb 7.5 g/dL (12.0-16.0) L 06/10/21 04:18 Hct 21.6 % (36.0-47.0) L 06/10/21 04:18 MCV 82.8 fL (80.0-100.0) 06/10/21 04:18 MCH 28.8 pg (27.0-34.0) 06/10/21 04:18 MCHC 34.8 g/dL (33.0-35.0) 06/10/21 04:18 RDW 13.9 % (11.6-16.5) 06/10/21 04:18 Plt Count 248 X10^3/uL (150.0-450.0) 06/10/21 04:18 MPV 7.8 fL (7.4-11.0) 06/10/21 04:18 Neut % (Auto) 60.4 % (42.0-75.0) 06/10/21 04:18 Lymph % (Auto) 30.8 % (21.0-51.0) 06/10/21 04:18 [place] % (Auto) 6.9 % (0.0-13.0) 06/10/21 04:18 Eos % (Auto) 0.6 % (0.9-2.9) L 06/10/21 04:18 Baso % (Auto) 1.3 % (0.2-1.0) H 06/10/21 04:18 Neut # (Auto) 4.1 x10^3/uL (2.2-4.8) 06/10/21 04:18 Lymph # (Auto) 2.1 X10^3/uL (1.3-2.9) 06/10/21 04:18 [place] # (Auto) 0.5 x10^3/uL (0.3-0.8) 06/10/21 04:18 Eos # (Auto) 0.0 x10^3/uL (0.0-0.2) 06/10/21 04:18 Baso # (Auto) 0.1 X10^3/uL (0.0-0.1) 06/10/21 04:18 Absolute Nucleated RBC 0.1 /100WBC 06/10/21 04:18 Sodium 137 mmol/L (136-145) 06/10/21 04:18 Corrected Sodium TNP 06/10/21 04:18 Potassium 3.5 mmol/L (3.5-5.1) 06/10/21 09:05 Chloride 103 mmol/L (98-107) 06/10/21 04:18 Carbon Dioxide 23.5 mmol/L (21-32) 06/10/21 04:18 BUN 9 mg/dL (7-18) 06/10/21 04:18 Creatinine 0.92 mg/dL (0.55-1.02) 06/10/21 04:18 Est GFR (MDRD) Af Amer > 60 (>60) 06/10/21 04:18 Est GFR (MDRD) Non-Af > 60 (>60) 06/10/21 04:18 Glucose 83 mg/dL (65-99) 06/10/21 04:18 Calcium 8.2 mg/dL (8.5-10.1) L 06/10/21 04:18 Corrected Calcium 8.9 mg/dL (8.5-10.1) 06/10/21 04:18 Magnesium 2.3 mg/dL (1.7-2.9) 06/10/21 04:18 Iron 24 ug/dL (50-175) L 06/08/21 05:32 Ferritin 15 ng/mL (8-252) 06/08/21 05:32 Total Bilirubin 0.50 mg/dL (0.2-1.0) 06/10/21 04:18 AST 23 Units/L (15-37) 06/10/21 04:18 ALT 24 Units/L (12-78) 06/10/21 04:18 Alkaline Phosphatase 62 Units/L (46-116) 06/10/21 04:18 Creatine Kinase 58 Units/L (26-192) 06/07/21 21:35 CK-MB (CK-2) < 1.0 ng/mL (0-4.0) 06/07/21 21:35 CK/CKMB % Calc 1.7 % (<4) 06/07/21 21:35 Troponin I < 0.02 ng/mL (0-1.5) 06/07/21 21:35 Total Protein 5.8 g/dL (6.4-8.2) L 06/10/21 04:18 Albumin 3.1 g/dL (3.4-5.0) L 06/10/21 04:18 Globulin 2.7 g/dL (2.5-4.5) 06/10/21 04:18 Albumin/Globulin Ratio 1.1 Ratio (1.1-2.1) 06/10/21 04:18 HCG, Qual Negative <10 mIU/mL 06/08/21 05:32 SARS CoV-2 RNA Rapid MALIK Negative (NEGATIVE) 06/08/21 00:54 Blood Type A NEGATIVE 06/08/21 23:31 Antibody Screen Negative 06/08/21 23:31 Crossmatch See Detail 06/08/21 23:31 Reason For Visit: ANEMIA, MENORRHAGIA Discharge Date Discharge Date: 06/10/21 Discharge Diagnosis All Active Problems (Updated 06/10/21 @ 13:08 by Finesse Santamaria) Symptomatic anemia (Acute) Anemia (Acute) Headache disorder (Active) Cellulitis (Acute) Abdominal pain (Acute) Pancreatic mass (Acute) Lower back pain (Acute) Leukopenia (Acute) Thrombocytopenia (Acute) Suspected 2019-nCoV infection (Acute) Cough (Acute) Acute hypokalemia (Acute) Acute dehydration (Acute) Vomiting (Acute) Menorrhagia (Acute) Plan of Treatment: Continue with present treatment and follow up plan. Pt is to keep follow up appointment as instructed and take medications as ordered. Discharge Medications Discharge Medications: No Known Drug Allergies Allergy (Verified 01/24/20 12:46) Follow up and Referral Follow Up: 1 Week Discharge Disposition Discharge Disposition: Home Discharge Condition: Stable Discharge Plan Discharge Plan Hospital Course: Pt is a 30 year old female admitted for symptomatic anemia secondary to menorrhagia. Pt was having daily persistent heavy menstrual bleeding with clots. She required a total of 2 units of packed red blood cells and her hemoglobin did stabilize at 9.5. She also received iron infusion for iron deficiency anemia. Gynecology was consulted, patient was started on control pills and ultrasound of the pelvis was ordered that did not reveal any acute findings. Pt was discharged home in stable condition. Instructed to continue control, follow up with her pcp and has appointment to see her real estate economist on Sunday. Patient Disposition: HOME, SELF-CARE Condition: Stable Health Concerns: Post Hospitalization: new medications and changes needed to prevent readmission or further decline. Pt educated and given instructions on all concerns. Plan of Treatment: Continue with present treatment and follow up plan. Pt is to keep follow up appointment as instructed and take medications as ordered. Prescriptions: No Action NK RF: 0 Orders to Discharge Patient Discharge Orders: Discharge (Routine); Ordered 06/10/21 Ordered By: Finesse Santamaria Instructions Instructions: Anemia, Anemia of Prematurity Activity Restrictions/Additional Instructions: The patient is to continue her step-down therapy of control pills, 3 tablets a day for 3 days, followed by 2 tablets a day for 2 days, followed by a tablet daily after that. She has the control pills already at this time. Stand Alone Forms: Excuse From Work or School, Precautions for COVID, [facility], Patient Portal, Social Distancing
[2021-06-10 15:17] LABS: HEMOGLOBIN 9.5 g/dL (12.0-16.0)
[2021-06-11] MEDS ORDERED: PATIENT'S HOME MEDICATION PO SCH (09:00)
[2021-06-13] MEDS ORDERED: PATIENT'S HOME MEDICATION PO SCH (09:00)
== END 2021-06-10 16:20 | disposition home or self-care (01) ==
LOC: MED/SURG 19:21 → ER 19:21 → MED/SURG 06-08 02:10
PROVIDERS: ADMIT Family Medicine; ATTEND Family Medicine
DX: E87.6 Hypokalemia; R06.02 Shortness of breath; D64.89 Other specified anemias; N92.1 Excessive and frequent menstruation with irregular cycle; R42 Dizziness and giddiness; D50.8 Other iron deficiency anemias; Z20.822 Contact with and (suspected) exposure to COVID-19; R94.31 Abnormal electrocardiogram [ECG] [EKG]

== ENCOUNTER 2022-10-22 18:36 | Inpatient (IN) ==
[2022-10-22 18:46] VITALS: BMI 34.8
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
[2022-10-22] MEDS ORDERED: ZOFRAN INJ 4 MG VIAL IVP ONE (19:08)
[2022-10-22] MEDS ORDERED: NS 1,000 ML IV 1,000 ML IV ONE (19:08)
[2022-10-22] MEDS ORDERED: TORADOL 30 MG VIAL IVP ONE (19:08)
--- NOTE | 2022-10-22 19:25 | EKG ---
Test Reason : left chest pain Blood Pressure : */* mmHG Vent. Rate : 88 BPM Atrial Rate : 88 BPM P-R Int : 130 ms QRS Dur : 84 ms QT Int : 368 ms P-R-T Axes : 38 54 16 degrees QTc Int : 445 ms Normal sinus rhythm with sinus arrhythmia Normal ECG No previous ECGs available Confirmed by Hao Joshua ([id number]) on 10/24/2022 8:09:17 AM Referred By: Confirmed By: Hao Joshua
[2022-10-22] MEDS ORDERED: ZOFRAN INJ 4 MG VIAL ONE (19:26)
[2022-10-22] MEDS ORDERED: NS 1,000 ML IV 1,000 ML ONE (19:26)
[2022-10-22] MEDS ORDERED: TORADOL 30 MG VIAL ONE (19:26)
[2022-10-22 19:34] LABS: BASOPHILS % (AUTO) 0.7 % (0.2-1.0); EOSINOPHILS % (AUTO) 0.5 % (0.9-2.9); HEMATOCRIT 40.4 % (36.0-47.0); HEMOGLOBIN 13.9 g/dL (12.0-16.0); LYMPHOCYTES # (AUTO) 1.1 X10^3/uL (1.3-2.9); LYMPHOCYTES % (AUTO) 14.9 % (21.0-51.0); MEAN CORPUSCULAR HEMOGLOBIN 29.4 pg (27.0-34.0); MEAN CORPUSCULAR HGB CONC 34.5 g/dL (33.0-35.0); MEAN CORPUSCULAR VOLUME 85.2 fL (80.0-100.0); MEAN PLATELET VOLUME 8.7 fL (7.4-11.0); MONOCYTES # (AUTO) 0.5 x10^3/uL (0.3-0.8); MONOCYTES % (AUTO) 7.3 % (0.0-13.0); NEUTROPHILS # (AUTO) 5.5 x10^3/uL (2.2-4.8); NEUTROPHILS % (AUTO) 76.6 % (42.0-75.0); PLATELET COUNT 225 X10^3/uL (150.0-450.0); RED BLOOD COUNT 4.74 X10^6/uL (3.5-5.4); RED CELL DISTRIBUTION WIDTH 13.3 % (11.6-16.5); WHITE BLOOD COUNT 7.1 X10^3/uL (3.6-10.0)
[2022-10-22 19:40] LABS: SERUM PREGNANCY TEST, QUAL NEGATIVE <10 mIU/mL
[2022-10-22 19:48] LABS: ALANINE AMINOTRANSFERASE 33 Units/L (12-78); ALKALINE PHOSPHATASE 71 Units/L (46-116); ASPARTATE AMINO TRANSFERASE 25 Units/L (15-37); BLOOD UREA NITROGEN 7 mg/dL (7-18); CALCIUM 8.9 mg/dL (8.5-10.1); CARBON DIOXIDE 27.1 mmol/L (21-32); CHLORIDE 103 mmol/L (98-107); CREATININE 0.93 mg/dL (0.55-1.02); GLUCOSE 99 mg/dL (65-99); POTASSIUM 3.7 mmol/L (3.5-5.1); SODIUM 139 mmol/L (136-145); TOTAL PROTEIN 6.9 g/dL (6.4-8.2); eGFR NON BLACK RACES > 60 (>60)
[2022-10-22] MEDS ORDERED: BENADRYL INJ 50 MG VIAL IVP ONE (20:02)
[2022-10-22] MEDS ORDERED: BENADRYL INJ 50 MG VIAL ONE (20:03)
[2022-10-22 20:10] LABS: LIPASE 2892 Units/L (73-393)
--- NOTE | 2022-10-22 21:54 | RAD ---
STUDY: FRONTAL AND LATERAL VIEW OF THE CHESTCOMPARISON: NoneHISTORY: LEFT CHEST PAINFINDINGS:Consolidation is seen in left lower lung zone with a probable small left pleural effusion.The heart size is within normal limits.The mediastinum is unremarkable.There is no evidence of a right-sided pleural effusion or gross pneumothorax.The trachea is midline.Increased opacification noted retrocardiac space overlying the lower thoracic spinal lateral view.IMPRESSION:Consolidation is seen in left lower lung zone with a probable small left pleural effusion. This may represent acute or chronic airspace disease. Follow-up to complete resolution may be obtained as clinically indicated indicated.Electronically signed by: Sridhar Machuca (October 22, 2022 21:42:51)
--- NOTE | 2022-10-22 22:16 | CT ---
STUDY: CT ABDOMEN AND PELVIS WITH IV CONTRASTCOMPARISON: NoneTECHNIQUE: Axial images were acquired of the abdomen and pelvis with IV contrast. Sagittal and coronal reformatted images were provided. All images were reviewed in a variety of windows and levels.RADIATION REDUCTION TECHNIQUE: Automated exposure control, adjustment of the mA and/or kV according to patient size, or iterative reconstruction techniques were used.HISTORY: ABD PAIN, ELEVATED PANCREATIC ENZYMESFINDINGS:LOWER THORAX: The visualized lower lung zones demonstrates a moderate sized left-sided pleural effusion. The heart size is within normal limits. There is no evidence of a pericardial effusion. There is a rim enhancing cystic mass located just inferior to the left diaphragm measuring 50 x 32 mm that is worrisome for an abscess.LIVER: No intrahepatic focal lesions are seen. No evidence of intrahepatic or extrahepatic duct dilation.GALLBLADDER: The gallbladder has been surgically removed.SPLEEN: The spleen enhances homogenously and is unremarkable.PANCREAS: There is a complex cystic mass in the region of the tail of the pancreas which has a heterogeneous dense internal architecture measuring 63 x 61 mm.AGRENAL GLANDS: The adrenal glands enhance homogenously and are unremarkable.: The kidneys enhance homogenously. Their collecting system is of normal caliber.The uterus is grossly unremarkable. The ovaries are not clearly identified on this examination.URINARY BLADDER: The urinary bladder is unremarkable. There are no soft tissue masses seen in the urinary bladder.VESSELS: The abdominal aorta is normal in size without evidence of aneurysm or dissection. The celiac artery, superior mesenteric artery, [place] renal arteries, and inferior mesenteric artery are patent.GI: The stomach and small bowel is unremarkable. The large bowel is unremarkable There are no inflammatory changes seen in the right lower quadrant to suggest secondary signs of acute appendicitis. Postsurgical changes near the cecum may be from prior appendectomy. Please correlate with patient's past surgical history.LYMPHNODES AND MESSENTERY: There is no evidence of retroperitoneal lymphadenopathy.BONES: The visualized bones demonstrate degenerative changes. There are no concerning lytic or blastic lesions identified.IMPRESSION:1. Moderate to large sized left-sided pleural effusion with associated compressive atelectasis2. Rim enhancing cystic mass inferior left diaphragm could represent abscess3. Complex cystic mass with heterogeneous internal architecture measuring 63 x 61 mm is located the tail the pancreas. This could represent a benign or malignant process and therefore follow-up with surgery may be obtained as clinically indicated4. Postsurgical changes near the cecum may be from prior appendectomy. Please correlate with patient's past surgical history.5. The patient is status post hysterectomy.Electronically signed by: Sridhar Machuca (October 22, 2022 22:15:14)
[2022-10-23] MEDS ORDERED: D5 1/2 NS 1,000 ML 1,000 ML IV ONE (01:38)
[2022-10-23] MEDS ORDERED: ZOFRAN INJ 4 MG VIAL ONE (02:18)
[2022-10-23] MEDS: D5 1/2 NS 1,000 ML 1,000 ML IV SCH ×4 (02:23→21:30)
[2022-10-23] MEDS: ZOFRAN INJ 4 MG VIAL IVP PRN ×2 (02:23→08:29)
[2022-10-23] MEDS: MORPHINE SULFATE INJ 4 MG IVP PRN (02:30)
[2022-10-23 05:31] LABS: BASOPHILS % (AUTO) 0.6 % (0.2-1.0); EOSINOPHILS % (AUTO) 0.8 % (0.9-2.9); HEMATOCRIT 36.8 % (36.0-47.0); HEMOGLOBIN 12.8 g/dL (12.0-16.0); LYMPHOCYTES # (AUTO) 1.3 X10^3/uL (1.3-2.9); LYMPHOCYTES % (AUTO) 24.3 % (21.0-51.0); MEAN CORPUSCULAR HEMOGLOBIN 29.7 pg (27.0-34.0); MEAN CORPUSCULAR HGB CONC 34.7 g/dL (33.0-35.0); MEAN CORPUSCULAR VOLUME 85.7 fL (80.0-100.0); MEAN PLATELET VOLUME 8.5 fL (7.4-11.0); MONOCYTES # (AUTO) 0.6 x10^3/uL (0.3-0.8); NEUTROPHILS # (AUTO) 3.6 x10^3/uL (2.2-4.8); NEUTROPHILS % (AUTO) 64.3 % (42.0-75.0); PLATELET COUNT 199 X10^3/uL (150.0-450.0); WHITE BLOOD COUNT 5.5 X10^3/uL (3.6-10.0)
[2022-10-23 05:48] LABS: ALANINE AMINOTRANSFERASE 25 Units/L (12-78); ALBUMIN 3.3 g/dL (3.4-5.0); ALKALINE PHOSPHATASE 59 Units/L (46-116); AMYLASE 345 Units/L (25-115); ASPARTATE AMINO TRANSFERASE 15 Units/L (15-37); BLOOD UREA NITROGEN 7 mg/dL (7-18); CALCIUM 8.2 mg/dL (8.5-10.1); CARBON DIOXIDE 28.5 mmol/L (21-32); CHLORIDE 106 mmol/L (98-107); COR CA(FOR HYPOALB) 8.8 mg/dL (8.5-10.1); GLUCOSE 102 mg/dL (65-99); LIPASE 1013 Units/L (73-393); POTASSIUM 3.7 mmol/L (3.5-5.1); SODIUM 140 mmol/L (136-145); eGFR NON BLACK RACES > 60 (>60)
--- NOTE | 2022-10-23 09:29 | RAD ---
HISTORYINCREASED SHORTNESS OF BREATHSTUDYCHEST, 1 [id number] trachea is midline. The cardiac silhouette is unremarkable. Pleural parenchymal opacity of the left base is observed consistent with layering pleural effusion and underlying infiltrate. The bony thorax is unremarkable.IMPRESSIONBronchopneumonia of the left lower lobe with parapneumonic effusionElectronically signed by: JOSE MAHAN (October 23, 2022 09:27:25)
--- NOTE | 2022-10-23 14:27 | DR.H&P ---
H&P History & Physical for Day of: H&P Date: 10/23/22 Chief Complaint Chief Complaint: Left-sided chest pain with nausea x2 days. Allergies Allergies Allergy/AdvReac Type Severity Reaction Status Date / Time ketorolac [From Toradol] Allergy Severe RASH Verified 10/23/22 02:43 History of Present Illness History of Present Illness: This is a pleasant 32-year-old white female who presented to [facility] emergency department yesterday evening with a chief complaint of left-sided chest pain with nausea for 2 days. She also had gradual onset of left upper back and chest pain that was sharp constant and worse with deep breathing. Laying back is made it worse and deep breathing was hard. Patient did report playing softball 2 days prior to onset of symptoms and there was no trauma. She does complain of a slight dry cough that is worse with lying back and she thinks she had a low-grade temperature at home. Although she had the nausea she has not had any vomiting nor diarrhea. She does not report any genitourinary problems at this time. She denies history of previous blood clots as well. She does take Mounjaro and vitamin D. Work-up revealed that she has pancreatitis and Mounjaro is known to cause this in some people. Chest x-ray showed consolidation in the left lower lungs along with probable small left pleural effusion. This represents possible acute or chronic airspace disease. CT scan of the abdomen/pelvis showed a left lower lung moderate size left pleural effusion. There was no evidence of pericardial effusion. There is a rim-enhanc ing cystic mass located just inferior to the left diaphragm measuring 50 x 32 mm. It is worrisome for an abscess. Pancreas showed a complex cystic mass in the region of the tail of the pancreas that has a heterogeneous dense internal architecture measuring 63 x 61 mm. Portable chest x-ray this morning shows that the patient has bronchopneumonia of the left lower lobe with parapneumonic effusion. Past Medical History Past Medical History: Migraines Past Surgical History Surgical History: Appendectomy, Cholecystectomy and Hysterectomy Family History Family Medical History: Diabetes Mellitus, Coronary Artery Disease and Hypertension Social History Does patient currently use any type of tobacco product: No Have you used tobacco products in the last 12 months: No Type of Tobacco Use: None Does any household member use tobacco: No Alcohol Use: None Drug Use: None Medications Home Medications: ketorolac [From Toradol] Allergy (Severe, Verified 10/23/22 02:43) RASH CONTINUE taking the following medications ergocalciferol (vitamin D2) 1,250 mcg (50,000 unit) capsule 1 cap PO QWEEK 10/22/22 [History] ondansetron HCl 4 mg tablet 1 tab PO BID PRN nausea 10/22/22 [History] tirzepatide 2.5 mg/0.5 mL subcutaneous pen injector (Wali) 1 syringe subcut QWEEK 10/22/22 [History] Labs Result Diagrams: 10/23/22 05:05 10/23/22 05:05 Labs: Laboratory WBC 5.5 X10^3/uL (3.6-10.0) 10/23/22 05:05 RBC 4.30 X10^6/uL (3.5-5.4) 10/23/22 05:05 Hgb 12.8 g/dL (12.0-16.0) 10/23/22 05:05 Hct 36.8 % (36.0-47.0) 10/23/22 05:05 MCV 85.7 fL (80.0-100.0) 10/23/22 05:05 MCH 29.7 pg (27.0-34.0) 10/23/22 05:05 MCHC 34.7 g/dL (33.0-35.0) 10/23/22 05:05 RDW 13.0 % (11.6-16.5) 10/23/22 05:05 Plt Count 199 X10^3/uL (150.0-450.0) 10/23/22 05:05 MPV 8.5 fL (7.4-11.0) 10/23/22 05:05 Neut % (Auto) 64.3 % (42.0-75.0) 10/23/22 05:05 Lymph % (Auto) 24.3 % (21.0-51.0) 10/23/22 05:05 [place] % (Auto) 10.0 % (0.0-13.0) 10/23/22 05:05 Eos % (Auto) 0.8 % (0.9-2.9) L 10/23/22 05:05 Baso % (Auto) 0.6 % (0.2-1.0) 10/23/22 05:05 Neut # (Auto) 3.6 x10^3/uL (2.2-4.8) 10/23/22 05:05 Lymph # (Auto) 1.3 X10^3/uL (1.3-2.9) 10/23/22 05:05 [place] # (Auto) 0.6 x10^3/uL (0.3-0.8) 10/23/22 05:05 Eos # (Auto) 0.0 x10^3/uL (0.0-0.2) 10/23/22 05:05 Baso # (Auto) 0.0 X10^3/uL (0.0-0.1) 10/23/22 05:05 Absolute Nucleated RBC 0.0 /100WBC 10/23/22 05:05 D-Dimer 0.71 ug/ml (0.0-0.57) H 10/22/22 19:20 Sodium 140 mmol/L (136-145) 10/23/22 05:05 Corrected Sodium TNP 10/23/22 05:05 Potassium 3.7 mmol/L (3.5-5.1) 10/23/22 05:05 Chloride 106 mmol/L (98-107) 10/23/22 05:05 Carbon Dioxide 28.5 mmol/L (21-32) 10/23/22 05:05 BUN 7 mg/dL (7-18) 10/23/22 05:05 Creatinine 1.00 mg/dL (0.55-1.02) 10/23/22 05:05 Est GFR (MDRD) Af Amer > 60 (>60) 10/23/22 05:05 Est GFR (MDRD) Non-Af > 60 (>60) 10/23/22 05:05 Glucose 102 mg/dL (65-99) H 10/23/22 05:05 POC Glucose (mg/dL) 82 mg/dL (65-99) 10/23/22 11:47 Calcium 8.2 mg/dL (8.5-10.1) L 10/23/22 05:05 Corrected Calcium 8.8 mg/dL (8.5-10.1) 10/23/22 05:05 Total Bilirubin 0.70 mg/dL (0.2-1.0) 10/23/22 05:05 AST 15 Units/L (15-37) 10/23/22 05:05 ALT 25 Units/L (12-78) 10/23/22 05:05 Alkaline Phosphatase 59 Units/L (46-116) 10/23/22 05:05 Troponin I High Sens < 4.0 ng/L (4.0-60.0) L 10/22/22 19:20 B-Natriuretic Peptide < 5.0 pg/mL (0-79) 10/23/22 05:05 Total Protein 6.0 g/dL (6.4-8.2) L 10/23/22 05:05 Albumin 3.3 g/dL (3.4-5.0) L 10/23/22 05:05 Globulin 2.7 g/dL (2.5-4.5) 10/23/22 05:05 Albumin/Globulin Ratio 1.2 Ratio (1.1-2.1) 10/23/22 05:05 Amylase 345 Units/L (25-115) H 10/23/22 05:05 Lipase 1013 Units/L (73-393) H 10/23/22 05:05 HCG, Qual Negative <10 mIU/mL 10/22/22 19:20 SARS-CoV-2 (PCR) Negative (NEGATIVE) 10/22/22 19:20 Influenza Type A (PCR) Negative (NEGATIVE) 10/22/22 19:20 Influenza Type B (PCR) Negative (NEGATIVE) 10/22/22 19:20 RSV (PCR) Negative (NEGATIVE) 10/22/22 19:20 Review of Systems Constitutional: Fever, Chills, Sweats, Weakness and Malaise Eyes: No Symptoms Reported ENT: No Symptoms Reported Respiratory: Cough and SOB with Excertion Cardiovascular: Chest Pain and Orthopnea Gastrointestinal: Nausea and Abdominal Pain; denies Vomiting, Diarrhea, Constipation or Melena Genitourinary: No Symptoms Reported Musculoskeletal: No Symptoms Reported Skin: No Symptoms Reported Neurological: No Symptoms Reported Physical Exam Vital Signs: Temperature 99.4 F Pulse Rate [Right] 90 Pulse Rate [Left Radial] 92 Pulse Rate 93 Respiratory Rate 18 Blood Pressure [Right Arm] 104/63 Blood Pressure [Left Arm] 127/72 Blood Pressure 123/77 O2 Sat by Pulse Oximetry 95 Oriented: Normal, Time, Person and Place Eyes: Normal Ear: Normal Nose: Normal Throat: Normal Respiratory: LLL Rhonchi and LLL Rales Cardiovascular: Normal : Normal Auscultation: Bowel Sounds: Normal Palpation: Normal Tenderness: Epigastric Skin: Normal Musculoskeletal: Normal Psychiatric: Normal Mood Description: Calm Affect: Normal Speech Pattern: Clear and Appropriate Assessment/Plan (1) Acute pancreatitis: Status: Acute Plan: Consult general surgery. Make patient n.p.o. and continue IV hydration and pain control. (2) Pleural effusion on left: Narrative Support Text: Effusions likely secondary to bronchopneumonia of the left lower lobe. Status: Acute Plan: Monitor daily chest x-rays to see if the pleural effusion is resolving with treatment of the pneumonia. If it is not rapidly getting better we may try her on some IV Lasix tomorrow morning. (3) Pancreatic mass: Status: Acute Plan: Work-up per general surgery. I will also check a CT 199 tumor marker. (4) Left lower lobe pneumonia: Status: Acute Plan: I will start the patient on pneumonia protocol and initiate Levaquin 750 mg IV daily along with Zosyn 4.5 g IV Q8 hours. We will check daily chest x-rays until resolution of the pneumonia and left pleural effusion. Follow-up sputum cultures when they are back. AIT sputum cultures are also being done. Review H&P Reviewed: Yes Patient was examined?: Yes
[2022-10-23] MEDS ORDERED: LEVAQUIN PREMIX IV 750 MG 750 MG/150 ML BAG IV SCH (15:00)
[2022-10-23] MEDS ORDERED: ZOSYN VIAL 4.5 GRAMS 4.5 G in NS 100 ML IV + SPIKE MINIBAG* 100 ML IV SCH (15:00)
[2022-10-23] MEDS ORDERED: ZOSYN VIAL 4.5 GRAMS 4.5 G in NS 100 ML IV 100 ML IV SCH (15:00)
[2022-10-23] MEDS ORDERED: BENADRYL INJ 50 MG VIAL IVP ONE ×2 (15:58→17:06)
[2022-10-23] MEDS: DUONEB 0.5 MG/3 MG (3 mL) NEB SCH ×2 (16:30→21:18)
[2022-10-23] MEDS: TYLENOL 325 MG TAB PO PRN ×2 (17:15→22:00)
[2022-10-23] MEDS: PULMICORT NEB TX 0.5 MG NEB SCH (21:18)
[2022-10-23] MEDS: MERREM VIAL 500 MG in NS 100 ML IV 100 ML IV SCH (21:37)
[2022-10-23] MEDS ORDERED: ROBITUSSIN DM PO PRN (21:58)
[2022-10-24] MEDS: DUONEB 0.5 MG/3 MG (3 mL) NEB SCH ×5 (01:00→20:36)
[2022-10-24] MEDS: ZOFRAN INJ 4 MG VIAL IVP PRN ×3 (04:10→23:24)
[2022-10-24] MEDS: MERREM VIAL 500 MG in NS 100 ML IV 100 ML IV SCH ×3 (05:07→21:43)
[2022-10-24 05:22] LABS: BASOPHILS % (AUTO) 0.5 % (0.2-1.0); EOSINOPHILS % (AUTO) 0.5 % (0.9-2.9); HEMATOCRIT 36.5 % (36.0-47.0); HEMOGLOBIN 12.7 g/dL (12.0-16.0); LYMPHOCYTES # (AUTO) 0.8 X10^3/uL (1.3-2.9); MEAN CORPUSCULAR HEMOGLOBIN 29.7 pg (27.0-34.0); MEAN CORPUSCULAR HGB CONC 34.8 g/dL (33.0-35.0); MEAN CORPUSCULAR VOLUME 85.3 fL (80.0-100.0); MEAN PLATELET VOLUME 8.6 fL (7.4-11.0); MONOCYTES # (AUTO) 0.6 x10^3/uL (0.3-0.8); MONOCYTES % (AUTO) 10.6 % (0.0-13.0); NEUTROPHILS # (AUTO) 3.8 x10^3/uL (2.2-4.8); NEUTROPHILS % (AUTO) 72.4 % (42.0-75.0); PLATELET COUNT 202 X10^3/uL (150.0-450.0); RED BLOOD COUNT 4.28 X10^6/uL (3.5-5.4); RED CELL DISTRIBUTION WIDTH 13.1 % (11.6-16.5); WHITE BLOOD COUNT 5.2 X10^3/uL (3.6-10.0)
[2022-10-24 05:35] LABS: ALANINE AMINOTRANSFERASE 25 Units/L (12-78); ALBUMIN 3.2 g/dL (3.4-5.0); ALKALINE PHOSPHATASE 65 Units/L (46-116); ASPARTATE AMINO TRANSFERASE 15 Units/L (15-37); BLOOD UREA NITROGEN 4 mg/dL (7-18); CALCIUM 8.1 mg/dL (8.5-10.1); CARBON DIOXIDE 27.7 mmol/L (21-32); CHLORIDE 105 mmol/L (98-107); COR CA(FOR HYPOALB) 8.7 mg/dL (8.5-10.1); COR NA(FOR HYPERGLY) 140 mmol/L (136-145); GLUCOSE 122 mg/dL (65-99); POTASSIUM 3.9 mmol/L (3.5-5.1); SODIUM 139 mmol/L (136-145); TOTAL PROTEIN 6.2 g/dL (6.4-8.2); eGFR NON BLACK RACES > 60 (>60)
[2022-10-24] MEDS: D5 1/2 NS 1,000 ML 1,000 ML IV SCH ×4 (06:54→18:09)
[2022-10-24 07:56] LABS: AMYLASE 217 Units/L (25-115); LIPASE 484 Units/L (73-393)
--- NOTE | 2022-10-24 08:24 | DR.PROGNOT ---
HOSPITAL PROGRESS NOTE Progress Note for Day of: Progress Note Date: 10/24/22 Chief Complaint Chief Complaint: moderate SOB with ambulation. moderate epigastric and LUQ pain . no nausea , no vomiting. Lipase is down to 1000 Past Medical Family Social History Allergies: Allergies ketorolac [From Toradol] Allergy (Severe, Verified 10/23/22 02:43) RASH pt states that toradol causes a severe reddened, raised rash levofloxacin [From Levaquin] Allergy (Verified 10/23/22 16:42) piperacillin [From Zosyn] Allergy (Verified 10/23/22 17:08) tazobactam [From Zosyn] Allergy (Verified 10/23/22 17:08) Vital Signs Vital Signs: Temperature 98.7 F Pulse Rate [Right] 85 Pulse Rate [Left Radial] 92 Pulse Rate 84 Respiratory Rate 20 Blood Pressure [Right Arm] 101/62 Blood Pressure [Left Arm] 127/72 Blood Pressure 123/77 O2 Sat by Pulse Oximetry 95 Physical Exam Oriented: Normal, Time, Person and Place Eyes: Normal Ear: Normal Nose: Normal Throat: Normal Cardiovascular: Normal : Normal GI:Auscultation: Normal GI:Palpation: Normal GI: Tenderness: Epigastric (and LUQ tenderness with hypoactive BS .) Skin: Normal Musculoskeletal: Normal Psychiatric: Normal Mood Description: Calm Affect: Normal Speech Pattern: Clear and Appropriate Laboratory and Diagnostics Result Diagrams: 10/24/22 05:05 10/24/22 05:05 Labs: Laboratory WBC 5.2 X10^3/uL (3.6-10.0) 10/24/22 05:05 RBC 4.28 X10^6/uL (3.5-5.4) 10/24/22 05:05 Hgb 12.7 g/dL (12.0-16.0) 10/24/22 05:05 Hct 36.5 % (36.0-47.0) 10/24/22 05:05 MCV 85.3 fL (80.0-100.0) 10/24/22 05:05 MCH 29.7 pg (27.0-34.0) 10/24/22 05:05 MCHC 34.8 g/dL (33.0-35.0) 10/24/22 05:05 RDW 13.1 % (11.6-16.5) 10/24/22 05:05 Plt Count 202 X10^3/uL (150.0-450.0) 10/24/22 05:05 MPV 8.6 fL (7.4-11.0) 10/24/22 05:05 Neut % (Auto) 72.4 % (42.0-75.0) 10/24/22 05:05 Lymph % (Auto) 16.0 % (21.0-51.0) L 10/24/22 05:05 [place] % (Auto) 10.6 % (0.0-13.0) 10/24/22 05:05 Eos % (Auto) 0.5 % (0.9-2.9) L 10/24/22 05:05 Baso % (Auto) 0.5 % (0.2-1.0) 10/24/22 05:05 Neut # (Auto) 3.8 x10^3/uL (2.2-4.8) 10/24/22 05:05 Lymph # (Auto) 0.8 X10^3/uL (1.3-2.9) L 10/24/22 05:05 [place] # (Auto) 0.6 x10^3/uL (0.3-0.8) 10/24/22 05:05 Eos # (Auto) 0.0 x10^3/uL (0.0-0.2) 10/24/22 05:05 Baso # (Auto) 0.0 X10^3/uL (0.0-0.1) 10/24/22 05:05 Absolute Nucleated RBC 0.0 /100WBC 10/24/22 05:05 D-Dimer 0.71 ug/ml (0.0-0.57) H 10/22/22 19:20 Sodium 139 mmol/L (136-145) 10/24/22 05:05 Corrected Sodium 140 mmol/L (136-145) 10/24/22 05:05 Potassium 3.9 mmol/L (3.5-5.1) 10/24/22 05:05 Chloride 105 mmol/L (98-107) 10/24/22 05:05 Carbon Dioxide 27.7 mmol/L (21-32) 10/24/22 05:05 BUN 4 mg/dL (7-18) L 10/24/22 05:05 Creatinine 0.90 mg/dL (0.55-1.02) 10/24/22 05:05 Est GFR (MDRD) Af Amer > 60 (>60) 10/24/22 05:05 Est GFR (MDRD) Non-Af > 60 (>60) 10/24/22 05:05 Glucose 122 mg/dL (65-99) H 10/24/22 05:05 POC Glucose (mg/dL) 109 mg/dL (65-99) H 10/24/22 05:32 Lactic Acid 0.7 mmol/L (0.4-2.0) 10/23/22 16:46 Calcium 8.1 mg/dL (8.5-10.1) L 10/24/22 05:05 Corrected Calcium 8.7 mg/dL (8.5-10.1) 10/24/22 05:05 Total Bilirubin 1.00 mg/dL (0.2-1.0) 10/24/22 05:05 AST 15 Units/L (15-37) 10/24/22 05:05 ALT 25 Units/L (12-78) 10/24/22 05:05 Alkaline Phosphatase 65 Units/L (46-116) 10/24/22 05:05 Troponin I High Sens < 4.0 ng/L (4.0-60.0) L 10/22/22 19:20 B-Natriuretic Peptide 11.8 pg/mL (0-79) 10/24/22 05:05 Total Protein 6.2 g/dL (6.4-8.2) L 10/24/22 05:05 Albumin 3.2 g/dL (3.4-5.0) L 10/24/22 05:05 Globulin 3.0 g/dL (2.5-4.5) 10/24/22 05:05 Albumin/Globulin Ratio 1.1 Ratio (1.1-2.1) 10/24/22 05:05 Amylase 217 Units/L (25-115) H 10/24/22 05:05 Lipase 484 Units/L (73-393) H 10/24/22 05:05 HCG, Qual Negative <10 mIU/mL 10/22/22 19:20 SARS-CoV-2 (PCR) Negative (NEGATIVE) 10/22/22 19:20 Influenza Type A (PCR) Negative (NEGATIVE) 10/22/22 19:20 Influenza Type B (PCR) Negative (NEGATIVE) 10/22/22 19:20 RSV (PCR) Negative (NEGATIVE) 10/22/22 19:20 Assessment and Plan 1: acute pancreatitis . on clear liquid for now 2: pancreatic pseudocysts . expected to dissolve slowly . on IV ABT . 3: Lt pleural effusion, possible early pneumonia . being observed with repeated Xray . if needed will do thoracentesis . Problem Patient Problems: Patient Problems (Updated 10/23/22 @ 14:12 by KENNY BENTON) Acute pancreatitis (Acute) K85.90 Pleural effusion on left (Acute) J90 Pancreatic mass (Acute) K86.9
[2022-10-24] MEDS: PULMICORT NEB TX 0.5 MG NEB SCH ×2 (09:09→20:36)
[2022-10-24] MEDS: TYLENOL 325 MG TAB PO PRN ×2 (11:46→17:11)
[2022-10-24] MEDS: NORCO 5/325 MG TAB PO PRN (19:53)
[2022-10-25] MEDS: D5 1/2 NS 1,000 ML 1,000 ML IV SCH ×3 (02:01→21:02)
[2022-10-25] MEDS: MERREM VIAL 500 MG in NS 100 ML IV 100 ML IV SCH ×3 (05:10→21:02)
[2022-10-25] MEDS: ZOFRAN INJ 4 MG VIAL IVP PRN ×2 (05:24→11:00)
[2022-10-25] MEDS: MORPHINE SULFATE INJ 4 MG IVP PRN ×5 (05:24→22:39)
[2022-10-25 06:09] LABS: BASOPHILS % (AUTO) 0.2 % (0.2-1.0); EOSINOPHILS % (AUTO) 0.3 % (0.9-2.9); HEMATOCRIT 37.4 % (36.0-47.0); LYMPHOCYTES # (AUTO) 0.8 X10^3/uL (1.3-2.9); LYMPHOCYTES % (AUTO) 11.1 % (21.0-51.0); MEAN CORPUSCULAR HEMOGLOBIN 29.8 pg (27.0-34.0); MEAN CORPUSCULAR HGB CONC 34.7 g/dL (33.0-35.0); MEAN CORPUSCULAR VOLUME 85.8 fL (80.0-100.0); MEAN PLATELET VOLUME 8.3 fL (7.4-11.0); MONOCYTES # (AUTO) 0.6 x10^3/uL (0.3-0.8); NEUTROPHILS # (AUTO) 5.7 x10^3/uL (2.2-4.8); NEUTROPHILS % (AUTO) 79.4 % (42.0-75.0); PLATELET COUNT 221 X10^3/uL (150.0-450.0); RED BLOOD COUNT 4.36 X10^6/uL (3.5-5.4); RED CELL DISTRIBUTION WIDTH 13.1 % (11.6-16.5); WHITE BLOOD COUNT 7.1 X10^3/uL (3.6-10.0)
[2022-10-25 06:27] LABS: ALANINE AMINOTRANSFERASE 25 Units/L (12-78); ALBUMIN 3.3 g/dL (3.4-5.0); ALKALINE PHOSPHATASE 85 Units/L (46-116); AMYLASE 245 Units/L (25-115); ASPARTATE AMINO TRANSFERASE 20 Units/L (15-37); BLOOD UREA NITROGEN 3 mg/dL (7-18); CALCIUM 8.3 mg/dL (8.5-10.1); CHLORIDE 104 mmol/L (98-107); COR CA(FOR HYPOALB) 8.9 mg/dL (8.5-10.1); COR NA(FOR HYPERGLY) 138 mmol/L (136-145); CREATININE 0.88 mg/dL (0.55-1.02); GLUCOSE 111 mg/dL (65-99); LIPASE 739 Units/L (73-393); SODIUM 138 mmol/L (136-145); TOTAL PROTEIN 6.6 g/dL (6.4-8.2); eGFR NON BLACK RACES > 60 (>60)
--- NOTE | 2022-10-25 07:53 | PCM.PROG ---
Progress Note Progress Note for Day of Date of Exam: 10/24/22 Subjective Subjective: Patient is sitting up in her chair beside the bed this morning. She is taking some clear fluid and she reports that last night her epigastrium started hurting. Is still hurting her this morning. I restarted consider doing a thoracentesis of the left pleural effusion however it looks more like a consolidation from pneumonia and that is what we are treating her for now. We tried treating her with IV Levaquin and Zosyn but unfortunately she had reactions to both of these medications and received Benadryl without any further problems. We change her over to IV meropenem as she seems to be tolerating it well with no foot further problems. Her white blood cell count is normal this morning. She did have some low-grade fever last night of 99.8. Her amylase and lipase have trended down tremendously from yesterday. Does appear that she has a pancreatic pseudocyst as well we will continue to keep her n.p.o. advance her diet per general surgery we will repeat her amylase lipase in the morning. We will also repeat her chest x-ray to see if her pneumonia is improving. Past Medical Family Social History Allergies: Allergies ketorolac [From Toradol] Allergy (Severe, Verified 10/23/22 02:43) RASH pt states that toradol causes a severe reddened, raised rash levofloxacin [From Levaquin] Allergy (Verified 10/23/22 16:42) piperacillin [From Zosyn] Allergy (Verified 10/23/22 17:08) tazobactam [From Zosyn] Allergy (Verified 10/23/22 17:08) Review of Systems ROS: No change since H&P Vital Signs and I&O's Vital Signs: Temperature 98.2 F Pulse Rate [Right] 92 Pulse Rate [Left Radial] 92 Pulse Rate 84 Respiratory Rate 18 Blood Pressure [Right Arm] 108/66 Blood Pressure [Left Arm] 127/72 Blood Pressure 123/77 O2 Sat by Pulse Oximetry 93 Intake and Output: Intake & Output 10/21/22 10/22/22 10/23/22 10/24/22 11:59 11:59 11:59 11:59 Intake Total 509 / 509 3106 / 3106 Output Total Balance 508 / 508 3106 / 3106 Physical Exam Oriented: Normal, Time, Person and Place Eyes: Normal Ear: Normal Nose: Normal Throat: Normal Respiratory: Left, Inferior, Diminished and Rhonchi Cardiovascular: Normal : Normal Auscultation: Bowel Sounds: Normal Tenderness: Epigastric (and LUQ tenderness with hypoactive BS .) Skin: Normal Musculoskeletal: Normal Psychiatric: Normal Mood Description: Calm Affect: Normal Speech Pattern: Clear and Appropriate Laboratory and Diagnostics Result Diagrams: 10/25/22 05:52 10/25/22 05:52 Labs: Laboratory WBC 5.2 X10^3/uL (3.6-10.0) 10/24/22 05:05 RBC 4.28 X10^6/uL (3.5-5.4) 10/24/22 05:05 Hgb 12.7 g/dL (12.0-16.0) 10/24/22 05:05 Hct 36.5 % (36.0-47.0) 10/24/22 05:05 MCV 85.3 fL (80.0-100.0) 10/24/22 05:05 MCH 29.7 pg (27.0-34.0) 10/24/22 05:05 MCHC 34.8 g/dL (33.0-35.0) 10/24/22 05:05 RDW 13.1 % (11.6-16.5) 10/24/22 05:05 Plt Count 202 X10^3/uL (150.0-450.0) 10/24/22 05:05 MPV 8.6 fL (7.4-11.0) 10/24/22 05:05 Neut % (Auto) 72.4 % (42.0-75.0) 10/24/22 05:05 Lymph % (Auto) 16.0 % (21.0-51.0) L 10/24/22 05:05 [place] % (Auto) 10.6 % (0.0-13.0) 10/24/22 05:05 Eos % (Auto) 0.5 % (0.9-2.9) L 10/24/22 05:05 Baso % (Auto) 0.5 % (0.2-1.0) 10/24/22 05:05 Neut # (Auto) 3.8 x10^3/uL (2.2-4.8) 10/24/22 05:05 Lymph # (Auto) 0.8 X10^3/uL (1.3-2.9) L 10/24/22 05:05 [place] # (Auto) 0.6 x10^3/uL (0.3-0.8) 10/24/22 05:05 Eos # (Auto) 0.0 x10^3/uL (0.0-0.2) 10/24/22 05:05 Baso # (Auto) 0.0 X10^3/uL (0.0-0.1) 10/24/22 05:05 Absolute Nucleated RBC 0.0 /100WBC 10/24/22 05:05 D-Dimer 0.71 ug/ml (0.0-0.57) H 10/22/22 19:20 Sodium 139 mmol/L (136-145) 10/24/22 05:05 Corrected Sodium 140 mmol/L (136-145) 10/24/22 05:05 Potassium 3.9 mmol/L (3.5-5.1) 10/24/22 05:05 Chloride 105 mmol/L (98-107) 10/24/22 05:05 Carbon Dioxide 27.7 mmol/L (21-32) 10/24/22 05:05 BUN 4 mg/dL (7-18) L 10/24/22 05:05 Creatinine 0.90 mg/dL (0.55-1.02) 10/24/22 05:05 Est GFR (MDRD) Af Amer > 60 (>60) 10/24/22 05:05 Est GFR (MDRD) Non-Af > 60 (>60) 10/24/22 05:05 Glucose 122 mg/dL (65-99) H 10/24/22 05:05 POC Glucose (mg/dL) 109 mg/dL (65-99) H 10/24/22 05:32 Lactic Acid 0.7 mmol/L (0.4-2.0) 10/23/22 16:46 Calcium 8.1 mg/dL (8.5-10.1) L 10/24/22 05:05 Corrected Calcium 8.7 mg/dL (8.5-10.1) 10/24/22 05:05 Total Bilirubin 1.00 mg/dL (0.2-1.0) 10/24/22 05:05 AST 15 Units/L (15-37) 10/24/22 05:05 ALT 25 Units/L (12-78) 10/24/22 05:05 Alkaline Phosphatase 65 Units/L (46-116) 10/24/22 05:05 Troponin I High Sens < 4.0 ng/L (4.0-60.0) L 10/22/22 19:20 B-Natriuretic Peptide 11.8 pg/mL (0-79) 10/24/22 05:05 Total Protein 6.2 g/dL (6.4-8.2) L 10/24/22 05:05 Albumin 3.2 g/dL (3.4-5.0) L 10/24/22 05:05 Globulin 3.0 g/dL (2.5-4.5) 10/24/22 05:05 Albumin/Globulin Ratio 1.1 Ratio (1.1-2.1) 10/24/22 05:05 Amylase 217 Units/L (25-115) H 10/24/22 05:05 Lipase 484 Units/L (73-393) H 10/24/22 05:05 HCG, Qual Negative <10 mIU/mL 10/22/22 19:20 SARS-CoV-2 (PCR) Negative (NEGATIVE) 10/22/22 19:20 Influenza Type A (PCR) Negative (NEGATIVE) 10/22/22 19:20 Influenza Type B (PCR) Negative (NEGATIVE) 10/22/22 19:20 RSV (PCR) Negative (NEGATIVE) 10/22/22 19:20 Resp Viral Panel (PCR) See scanned report 10/23/22 16:28 Plan (1) Acute pancreatitis: Status: Acute Plan: Consult general surgery. Make patient n.p.o. and continue IV hydration and pain control. (2) Pleural effusion on left: Status: Acute Plan: Monitor daily chest x-rays to see if the pleural effusion is resolving with treatment of the pneumonia. If it is not rapidly getting better we may try her on some IV Lasix tomorrow morning. (3) Pancreatic mass: Status: Acute Plan: Work-up per general surgery. I will also check a [place] 199 tumor marker. Pancreatic mass is likely a pseudocyst. (4) Left lower lobe pneumonia: Status: Acute Plan: Continue the patient on meropenem 500 mg IV every 8 hours.
--- NOTE | 2022-10-25 08:13 | RAD ---
HISTORYLLL PNEUMONIA, PLEURAL EFFUSIONSTUDYCHEST, 1 [id number]/15/2023.TECHNIQUEPA or AP view of the chestFINDINGSCardiac silhouette appears mildly enlarged. Similar appearance of moderate to large left pleural effusion. Associated left base opacity appears similar. Right lung appears clear. No pneumothorax. Soft tissue attenuation limits evaluation.IMPRESSIONNo significant change. Moderate to large left pleural effusion. Associated left base opacity may represent atelectasis or pneumonia.Electronically signed by: Josafat Mcknight (October 25, 2022 08:11:38)
[2022-10-25] MEDS: PULMICORT NEB TX 0.5 MG NEB SCH ×2 (09:33→21:00)
[2022-10-25] MEDS: DUONEB 0.5 MG/3 MG (3 mL) NEB SCH ×4 (09:34→21:00)
[2022-10-25] MEDS ORDERED: NS 100 ML IV 100 ML ONE (10:02)
--- NOTE | 2022-10-25 11:56 | PCM.PROG ---
Progress Note Progress Note for Day of Date of Exam: 10/25/22 Subjective Subjective: Patient is sitting up in the bed this morning. She reports that she is still hurting in the epigastrium. She currently has been trying to drink the p.o. contrast for a CT later today but unfortunately she keeps vomiting it up. Her amylase and lipase have trended upward since yesterday since she started taking clear fluids. Regarding her chest x-ray today it is showing a moderate to large sided left pleural effusion and a left base opacity. I will discuss with Dr. Edwards today our general surgeon to see if he wants to do a thoracentesis. Past Medical Family Social History Allergies: Allergies ketorolac [From Toradol] Allergy (Severe, Verified 10/23/22 02:43) RASH pt states that toradol causes a severe reddened, raised rash levofloxacin [From Levaquin] Allergy (Verified 10/23/22 16:42) piperacillin [From Zosyn] Allergy (Verified 10/23/22 17:08) tazobactam [From Zosyn] Allergy (Verified 10/23/22 17:08) Review of Systems ROS: No change since H&P Vital Signs and I&O's Vital Signs: Temperature 99.1 F Pulse Rate [Right] 101 Pulse Rate [Left Radial] 92 Pulse Rate 94 Respiratory Rate 18 Blood Pressure [Right Arm] 123/72 Blood Pressure [Left Arm] 127/72 Blood Pressure 123/77 O2 Sat by Pulse Oximetry 96 Intake and Output: Intake & Output 10/22/22 10/23/22 10/24/22 10/25/22 11:59 11:59 11:59 11:59 Intake Total 509 / 509 3106 / 3106 4587 / 4587 Output Total Balance 508 / 508 3106 / 3106 4587 / 4587 Physical Exam Oriented: Normal, Time, Person and Place Eyes: Normal Ear: Normal Nose: Normal Throat: Normal Respiratory: Left, Inferior, Diminished and Rhonchi Cardiovascular: Normal : Normal Auscultation: Bowel Sounds: Normal Tenderness: Epigastric (and LUQ tenderness with hypoactive BS .) Skin: Normal Musculoskeletal: Normal Psychiatric: Normal Mood Description: Calm Affect: Normal Speech Pattern: Clear and Appropriate Laboratory and Diagnostics Result Diagrams: 10/25/22 05:52 10/25/22 05:52 Labs: 10/23/22 14:42 Blood Blood Culture - Preliminary 10/23/22 14:35 Blood Blood Culture - Preliminary Laboratory WBC 7.1 X10^3/uL (3.6-10.0) 10/25/22 05:52 RBC 4.36 X10^6/uL (3.5-5.4) 10/25/22 05:52 Hgb 13.0 g/dL (12.0-16.0) 10/25/22 05:52 Hct 37.4 % (36.0-47.0) 10/25/22 05:52 MCV 85.8 fL (80.0-100.0) 10/25/22 05:52 MCH 29.8 pg (27.0-34.0) 10/25/22 05:52 MCHC 34.7 g/dL (33.0-35.0) 10/25/22 05:52 RDW 13.1 % (11.6-16.5) 10/25/22 05:52 Plt Count 221 X10^3/uL (150.0-450.0) 10/25/22 05:52 MPV 8.3 fL (7.4-11.0) 10/25/22 05:52 Neut % (Auto) 79.4 % (42.0-75.0) H 10/25/22 05:52 Lymph % (Auto) 11.1 % (21.0-51.0) L 10/25/22 05:52 [place] % (Auto) 9.0 % (0.0-13.0) 10/25/22 05:52 Eos % (Auto) 0.3 % (0.9-2.9) L 10/25/22 05:52 Baso % (Auto) 0.2 % (0.2-1.0) 10/25/22 05:52 Neut # (Auto) 5.7 x10^3/uL (2.2-4.8) H 10/25/22 05:52 Lymph # (Auto) 0.8 X10^3/uL (1.3-2.9) L 10/25/22 05:52 [place] # (Auto) 0.6 x10^3/uL (0.3-0.8) 10/25/22 05:52 Eos # (Auto) 0.0 x10^3/uL (0.0-0.2) 10/25/22 05:52 Baso # (Auto) 0.0 X10^3/uL (0.0-0.1) 10/25/22 05:52 Absolute Nucleated RBC 0.0 /100WBC 10/25/22 05:52 D-Dimer 0.71 ug/ml (0.0-0.57) H 10/22/22 19:20 Sodium 138 mmol/L (136-145) 10/25/22 05:52 Corrected Sodium 138 mmol/L (136-145) 10/25/22 05:52 Potassium 4.0 mmol/L (3.5-5.1) 10/25/22 05:52 Chloride 104 mmol/L (98-107) 10/25/22 05:52 Carbon Dioxide 26.0 mmol/L (21-32) 10/25/22 05:52 BUN 3 mg/dL (7-18) L 10/25/22 05:52 Creatinine 0.88 mg/dL (0.55-1.02) 10/25/22 05:52 Est GFR (MDRD) Af Amer > 60 (>60) 10/25/22 05:52 Est GFR (MDRD) Non-Af > 60 (>60) 10/25/22 05:52 Glucose 111 mg/dL (65-99) H 10/25/22 05:52 POC Glucose (mg/dL) 90 mg/dL (65-99) 10/24/22 16:09 Lactic Acid 0.7 mmol/L (0.4-2.0) 10/23/22 16:46 Calcium 8.3 mg/dL (8.5-10.1) L 10/25/22 05:52 Corrected Calcium 8.9 mg/dL (8.5-10.1) 10/25/22 05:52 Total Bilirubin 0.80 mg/dL (0.2-1.0) 10/25/22 05:52 AST 20 Units/L (15-37) 10/25/22 05:52 ALT 25 Units/L (12-78) 10/25/22 05:52 Alkaline Phosphatase 85 Units/L (46-116) 10/25/22 05:52 Troponin I High Sens < 4.0 ng/L (4.0-60.0) L 10/22/22 19:20 B-Natriuretic Peptide 11.8 pg/mL (0-79) 10/24/22 05:05 Total Protein 6.6 g/dL (6.4-8.2) 10/25/22 05:52 Albumin 3.3 g/dL (3.4-5.0) L 10/25/22 05:52 Globulin 3.3 g/dL (2.5-4.5) 10/25/22 05:52 Albumin/Globulin Ratio 1.0 Ratio (1.1-2.1) L 10/25/22 05:52 Amylase 245 Units/L (25-115) H 10/25/22 05:52 Lipase 739 Units/L (73-393) H 10/25/22 05:52 HCG, Qual Negative <10 mIU/mL 10/22/22 19:20 SARS-CoV-2 (PCR) Negative (NEGATIVE) 10/22/22 19:20 Influenza Type A (PCR) Negative (NEGATIVE) 10/22/22 19:20 Influenza Type B (PCR) Negative (NEGATIVE) 10/22/22 19:20 RSV (PCR) Negative (NEGATIVE) 10/22/22 19:20 Resp Viral Panel (PCR) See scanned report 10/23/22 16:28 Radiology Reviewed: Yes Plan (1) Acute pancreatitis: Status: Acute Narrative Support Text: Amylase and lipase are trending upward since starting clear fluids by mouth. Plan: General surgery is ordering another CT of the abdomen/pelvis with p.o. and IV contrast today. Follow-up with results later today. Repeat amylase lipase tomorrow morning. (2) Pleural effusion on left: Status: Acute Narrative Support Text: Chest x-ray today shows moderate to large pleural effusion in the left lung. Plan: Discuss thoracentesis with general surgery today. (3) Pancreatic mass: Status: Acute Narrative Support Text: CA 199 pending. Plan: Work-up per general surgery. Follow-up CA 199 level when available. (4) Left lower lobe pneumonia: Status: Acute Plan: Continue the patient on meropenem 500 mg IV every 8 hours. Repeat daily chest x-rays.
--- NOTE | 2022-10-25 12:16 | DR.PROGNOT ---
HOSPITAL PROGRESS NOTE Progress Note for Day of: Progress Note Date: 10/25/22 Chief Complaint Chief Complaint: c/o more abdominal pain today ..moderate SOB with ambulation.. some nausea and vomiting today . chest X Ray showed same Lt pleural effusion . Lipase is 739 . WBC 7.1 .. afebrile .. Past Medical Family Social History Past Med/Fam/Surg Hx: No changes since H&P Allergies: Allergies ketorolac [From Toradol] Allergy (Severe, Verified 10/23/22 02:43) RASH pt states that toradol causes a severe reddened, raised rash levofloxacin [From Levaquin] Allergy (Verified 10/23/22 16:42) piperacillin [From Zosyn] Allergy (Verified 10/23/22 17:08) tazobactam [From Zosyn] Allergy (Verified 10/23/22 17:08) Review Of Systems ROS: No change since H&P Vital Signs Vital Signs: Temperature 97.9 F Pulse Rate [Right] 98 Pulse Rate [Left Radial] 92 Pulse Rate 94 Respiratory Rate 20 Blood Pressure [Right Arm] 111/72 Blood Pressure [Left Arm] 127/72 Blood Pressure 123/77 O2 Sat by Pulse Oximetry 98 Physical Exam Oriented: Normal, Time, Person and Place Eyes: Normal Ear: Normal Nose: Normal Throat: Normal Respiratory: Left, Inferior, Diminished and Rhonchi Cardiovascular: Normal : Normal GI:Auscultation: Decreased GI:Palpation: Normal GI: Tenderness: Epigastric (and LUQ tenderness with hypoactive BS .) Skin: Normal Musculoskeletal: Normal Psychiatric: Normal Mood Description: Calm Affect: Normal Speech Pattern: Clear and Appropriate Laboratory and Diagnostics Result Diagrams: 10/25/22 05:52 10/25/22 05:52 Labs: 10/23/22 14:42 Blood Blood Culture - Preliminary 10/23/22 14:35 Blood Blood Culture - Preliminary Laboratory WBC 7.1 X10^3/uL (3.6-10.0) 10/25/22 05:52 RBC 4.36 X10^6/uL (3.5-5.4) 10/25/22 05:52 Hgb 13.0 g/dL (12.0-16.0) 10/25/22 05:52 Hct 37.4 % (36.0-47.0) 10/25/22 05:52 MCV 85.8 fL (80.0-100.0) 10/25/22 05:52 MCH 29.8 pg (27.0-34.0) 10/25/22 05:52 MCHC 34.7 g/dL (33.0-35.0) 10/25/22 05:52 RDW 13.1 % (11.6-16.5) 10/25/22 05:52 Plt Count 221 X10^3/uL (150.0-450.0) 10/25/22 05:52 MPV 8.3 fL (7.4-11.0) 10/25/22 05:52 Neut % (Auto) 79.4 % (42.0-75.0) H 10/25/22 05:52 Lymph % (Auto) 11.1 % (21.0-51.0) L 10/25/22 05:52 [place] % (Auto) 9.0 % (0.0-13.0) 10/25/22 05:52 Eos % (Auto) 0.3 % (0.9-2.9) L 10/25/22 05:52 Baso % (Auto) 0.2 % (0.2-1.0) 10/25/22 05:52 Neut # (Auto) 5.7 x10^3/uL (2.2-4.8) H 10/25/22 05:52 Lymph # (Auto) 0.8 X10^3/uL (1.3-2.9) L 10/25/22 05:52 [place] # (Auto) 0.6 x10^3/uL (0.3-0.8) 10/25/22 05:52 Eos # (Auto) 0.0 x10^3/uL (0.0-0.2) 10/25/22 05:52 Baso # (Auto) 0.0 X10^3/uL (0.0-0.1) 10/25/22 05:52 Absolute Nucleated RBC 0.0 /100WBC 10/25/22 05:52 D-Dimer 0.71 ug/ml (0.0-0.57) H 10/22/22 19:20 Sodium 138 mmol/L (136-145) 10/25/22 05:52 Corrected Sodium 138 mmol/L (136-145) 10/25/22 05:52 Potassium 4.0 mmol/L (3.5-5.1) 10/25/22 05:52 Chloride 104 mmol/L (98-107) 10/25/22 05:52 Carbon Dioxide 26.0 mmol/L (21-32) 10/25/22 05:52 BUN 3 mg/dL (7-18) L 10/25/22 05:52 Creatinine 0.88 mg/dL (0.55-1.02) 10/25/22 05:52 Est GFR (MDRD) Af Amer > 60 (>60) 10/25/22 05:52 Est GFR (MDRD) Non-Af > 60 (>60) 10/25/22 05:52 Glucose 111 mg/dL (65-99) H 10/25/22 05:52 POC Glucose (mg/dL) 90 mg/dL (65-99) 10/24/22 16:09 Lactic Acid 0.7 mmol/L (0.4-2.0) 10/23/22 16:46 Calcium 8.3 mg/dL (8.5-10.1) L 10/25/22 05:52 Corrected Calcium 8.9 mg/dL (8.5-10.1) 10/25/22 05:52 Total Bilirubin 0.80 mg/dL (0.2-1.0) 10/25/22 05:52 AST 20 Units/L (15-37) 10/25/22 05:52 ALT 25 Units/L (12-78) 10/25/22 05:52 Alkaline Phosphatase 85 Units/L (46-116) 10/25/22 05:52 Troponin I High Sens < 4.0 ng/L (4.0-60.0) L 10/22/22 19:20 B-Natriuretic Peptide 11.8 pg/mL (0-79) 10/24/22 05:05 Total Protein 6.6 g/dL (6.4-8.2) 10/25/22 05:52 Albumin 3.3 g/dL (3.4-5.0) L 10/25/22 05:52 Globulin 3.3 g/dL (2.5-4.5) 10/25/22 05:52 Albumin/Globulin Ratio 1.0 Ratio (1.1-2.1) L 10/25/22 05:52 Amylase 245 Units/L (25-115) H 10/25/22 05:52 Lipase 739 Units/L (73-393) H 10/25/22 05:52 HCG, Qual Negative <10 mIU/mL 10/22/22 19:20 SARS-CoV-2 (PCR) Negative (NEGATIVE) 10/22/22 19:20 Influenza Type A (PCR) Negative (NEGATIVE) 10/22/22 19:20 Influenza Type B (PCR) Negative (NEGATIVE) 10/22/22 19:20 RSV (PCR) Negative (NEGATIVE) 10/22/22 19:20 Resp Viral Panel (PCR) See scanned report 10/23/22 16:28 Assessment and Plan 1: acute pancreatitis . on clear liquid for now 2: pancreatic pseudocysts . expected to dissolve slowly . on IV ABT . 3: Lt pleural effusion, possible early pneumonia . being observed with repeated Xray . if needed will do thoracentesis . Problem Patient Problems: Patient Problems (Updated 10/23/22 @ 14:12 by KENNY BENTON) Acute pancreatitis (Acute) K85.90 Pleural effusion on left (Acute) J90 Pancreatic mass (Acute) K86.9
--- NOTE | 2022-10-25 15:26 | CT ---
ABDOMEN/PELVIS WITH CONHISTORY: Acute pancreatitisComparison:October 22, 2022Technique:Multiple axial images of the abdomen and pelvis were obtained from the lung bases to the pubic symphysis following the administration of IV contrast as well as oral contrast . Dose reduction techniques including Automated Exposure Control (AEC) and adjustment of mA and kV were utlized.Findings:The heart is normal in size. There is no pericardial effusion. Enlarging left effusion with atelectasis of the left lung. There is thickening of the pleura. Additionally there is a thick-walled loculated fluid collection that appears to be within the pleural space medially measuring 5.1 cm, previously 4.7 cm.Liver and spleen are normal in size, enhancement characteristics and contour. No focal lesions. The portal vein is patent. No ductal dilitation. Gallbladder absent. Cystic structure in the pancreatic tail measuring 6.6 cm, previously the same size. Adrenal glands are normal. Kidneys enhance symmetrically without hydronephrosis or nephrolithiasis.No bowel obstruction or inflammation. Previous bowel surgery. No abnormal appearing mesenteric or retroperitoneal lymph nodes. . No free fluid or fluid collections.The bladder is normal in appearance. Uterus present. No free fluid or abnormal pelvic lymph nodes.No aggressive osseous lesions.IMPRESSION:1.Worsening, large left-sided effusion with what is suspected to be intrathoracic pancreatic pseudocyst. Left-sided fusion appears to be somewhat complex and may possibly be superinfected.2. Stable pseudocyst of the pancreatic tail.Electronically signed by: MILAGRO BOURGEOIS (October 25, 2022 15:23:55)
[2022-10-25] MEDS ORDERED: XYLOCAINE 1 % (PLAIN) ONE (19:05)
[2022-10-25] MEDS: TYLENOL 325 MG TAB PO PRN (19:33)
[2022-10-26] MEDS: D5 1/2 NS 1,000 ML 1,000 ML IV SCH ×4 (02:09→23:44)
[2022-10-26] MEDS: MORPHINE SULFATE INJ 4 MG IVP PRN ×6 (02:20→23:44)
[2022-10-26] MEDS: MERREM VIAL 500 MG in NS 100 ML IV 100 ML IV SCH ×3 (04:59→21:46)
[2022-10-26 06:18] LABS: BASOPHILS % (AUTO) 0.4 % (0.2-1.0); EOSINOPHILS % (AUTO) 0.4 % (0.9-2.9); HEMATOCRIT 35.8 % (36.0-47.0); HEMOGLOBIN 12.6 g/dL (12.0-16.0); LYMPHOCYTES # (AUTO) 0.6 X10^3/uL (1.3-2.9); MEAN CORPUSCULAR HGB CONC 35.2 g/dL (33.0-35.0); MEAN CORPUSCULAR VOLUME 85.4 fL (80.0-100.0); MEAN PLATELET VOLUME 8.1 fL (7.4-11.0); MONOCYTES # (AUTO) 0.7 x10^3/uL (0.3-0.8); NEUTROPHILS # (AUTO) 5.2 x10^3/uL (2.2-4.8); NEUTROPHILS % (AUTO) 80.2 % (42.0-75.0); PLATELET COUNT 233 X10^3/uL (150.0-450.0); RED BLOOD COUNT 4.19 X10^6/uL (3.5-5.4); RED CELL DISTRIBUTION WIDTH 12.8 % (11.6-16.5); WHITE BLOOD COUNT 6.5 X10^3/uL (3.6-10.0)
[2022-10-26] MEDS: ZOFRAN INJ 4 MG VIAL IVP PRN ×3 (06:26→20:05)
[2022-10-26 06:47] LABS: ALANINE AMINOTRANSFERASE 27 Units/L (12-78); ALBUMIN 3.1 g/dL (3.4-5.0); ALKALINE PHOSPHATASE 91 Units/L (46-116); AMYLASE 151 Units/L (25-115); ASPARTATE AMINO TRANSFERASE 22 Units/L (15-37); BLOOD UREA NITROGEN 4 mg/dL (7-18); CALCIUM 8.4 mg/dL (8.5-10.1); CARBON DIOXIDE 27.3 mmol/L (21-32); CHLORIDE 101 mmol/L (98-107); COR CA(FOR HYPOALB) 9.1 mg/dL (8.5-10.1); COR NA(FOR HYPERGLY) 136 mmol/L (136-145); CREATININE 0.79 mg/dL (0.55-1.02); GLUCOSE 116 mg/dL (65-99); LIPASE 366 Units/L (73-393); MAGNESIUM 2.1 mg/dL (2.0-2.9); POTASSIUM 3.5 mmol/L (3.5-5.1); SODIUM 136 mmol/L (136-145); TOTAL PROTEIN 6.6 g/dL (6.4-8.2); eGFR NON BLACK RACES > 60 (>60)
--- NOTE | 2022-10-26 07:42 | DR.PROGNOT ---
HOSPITAL PROGRESS NOTE Progress Note for Day of: Progress Note Date: 10/26/22 Chief Complaint Chief Complaint: Patient is feeling better after left thoracentesis and drainage, 700 cc of dark yellowish colored fluid was drained. The fluid was sent for cytology cultures and chemistry.. Lipase and amylase are coming down, less abdominal pain, Still having low-grade fever. Abdominal and pelvic CT scan showed loculated cystic area at the tail of the pancreas, and loculated fluid in the left pleural cavity. Past Medical Family Social History Past Med/Fam/Surg Hx: No changes since H&P Allergies: Allergies ketorolac [From Toradol] Allergy (Severe, Verified 10/23/22 02:43) RASH pt states that toradol causes a severe reddened, raised rash levofloxacin [From Levaquin] Allergy (Verified 10/23/22 16:42) piperacillin [From Zosyn] Allergy (Verified 10/23/22 17:08) tazobactam [From Zosyn] Allergy (Verified 10/23/22 17:08) Review Of Systems ROS: No change since H&P Vital Signs Vital Signs: Temperature 99.4 F Pulse Rate [Right] 106 Pulse Rate [Left Radial] 92 Pulse Rate 72 Respiratory Rate 18 Blood Pressure [Right Arm] 132/81 Blood Pressure [Left Arm] 136/91 Blood Pressure 123/77 O2 Sat by Pulse Oximetry 96 Physical Exam Oriented: Normal, Time, Person and Place Eyes: Normal Ear: Normal Nose: Normal Throat: Normal Respiratory: Left, Inferior, Diminished and Rhonchi Cardiovascular: Normal : Normal GI:Auscultation: Decreased GI:Palpation: Normal GI: Tenderness: Epigastric (and LUQ tenderness with hypoactive BS .) Skin: Normal Musculoskeletal: Normal Psychiatric: Normal Mood Description: Calm Affect: Normal Speech Pattern: Clear and Appropriate Laboratory and Diagnostics Result Diagrams: 10/26/22 05:35 10/26/22 05:35 Labs: 10/25/22 19:17 Pleural Fluid Gram Stain - Final 10/23/22 14:42 Blood Blood Culture - Preliminary 10/23/22 14:35 Blood Blood Culture - Preliminary Laboratory WBC 6.5 X10^3/uL (3.6-10.0) 10/26/22 05:35 RBC 4.19 X10^6/uL (3.5-5.4) 10/26/22 05:35 Hgb 12.6 g/dL (12.0-16.0) 10/26/22 05:35 Hct 35.8 % (36.0-47.0) L 10/26/22 05:35 MCV 85.4 fL (80.0-100.0) 10/26/22 05:35 MCH 30.0 pg (27.0-34.0) 10/26/22 05:35 MCHC 35.2 g/dL (33.0-35.0) H 10/26/22 05:35 RDW 12.8 % (11.6-16.5) 10/26/22 05:35 Plt Count 233 X10^3/uL (150.0-450.0) 10/26/22 05:35 MPV 8.1 fL (7.4-11.0) 10/26/22 05:35 Neut % (Auto) 80.2 % (42.0-75.0) H 10/26/22 05:35 Lymph % (Auto) 9.0 % (21.0-51.0) L 10/26/22 05:35 [place] % (Auto) 10.0 % (0.0-13.0) 10/26/22 05:35 Eos % (Auto) 0.4 % (0.9-2.9) L 10/26/22 05:35 Baso % (Auto) 0.4 % (0.2-1.0) 10/26/22 05:35 Neut # (Auto) 5.2 x10^3/uL (2.2-4.8) H 10/26/22 05:35 Lymph # (Auto) 0.6 X10^3/uL (1.3-2.9) L 10/26/22 05:35 [place] # (Auto) 0.7 x10^3/uL (0.3-0.8) 10/26/22 05:35 Eos # (Auto) 0.0 x10^3/uL (0.0-0.2) 10/26/22 05:35 Baso # (Auto) 0.0 X10^3/uL (0.0-0.1) 10/26/22 05:35 Absolute Nucleated RBC 0.0 /100WBC 10/26/22 05:35 Clot Appearance Cancelled 05/17/23 19:17 D-Dimer 0.71 ug/ml (0.0-0.57) H 10/22/22 19:20 Sodium 136 mmol/L (136-145) 10/26/22 05:35 Corrected Sodium 136 mmol/L (136-145) 10/26/22 05:35 Potassium 3.5 mmol/L (3.5-5.1) 10/26/22 05:35 Chloride 101 mmol/L (98-107) 10/26/22 05:35 Carbon Dioxide 27.3 mmol/L (21-32) 10/26/22 05:35 BUN 4 mg/dL (7-18) L 10/26/22 05:35 Creatinine 0.79 mg/dL (0.55-1.02) 10/26/22 05:35 Est GFR (MDRD) Af Amer > 60 (>60) 10/26/22 05:35 Est GFR (MDRD) Non-Af > 60 (>60) 10/26/22 05:35 Glucose 116 mg/dL (65-99) H 10/26/22 05:35 POC Glucose (mg/dL) 90 mg/dL (65-99) 10/24/22 16:09 Lactic Acid 0.7 mmol/L (0.4-2.0) 10/23/22 16:46 Calcium 8.4 mg/dL (8.5-10.1) L 10/26/22 05:35 Corrected Calcium 9.1 mg/dL (8.5-10.1) 10/26/22 05:35 Magnesium 2.1 mg/dL (2.0-2.9) 10/26/22 05:35 Total Bilirubin 1.30 mg/dL (0.2-1.0) H 10/26/22 05:35 AST 22 Units/L (15-37) 10/26/22 05:35 ALT 27 Units/L (12-78) 10/26/22 05:35 Alkaline Phosphatase 91 Units/L (46-116) 10/26/22 05:35 Troponin I High Sens < 4.0 ng/L (4.0-60.0) L 10/22/22 19:20 B-Natriuretic Peptide 11.8 pg/mL (0-79) 10/24/22 05:05 Total Protein 6.6 g/dL (6.4-8.2) 10/26/22 05:35 Albumin 3.1 g/dL (3.4-5.0) L 10/26/22 05:35 Globulin 3.5 g/dL (2.5-4.5) 10/26/22 05:35 Albumin/Globulin Ratio 0.9 Ratio (1.1-2.1) L 10/26/22 05:35 Amylase 151 Units/L (25-115) H 10/26/22 05:35 Lipase 366 Units/L (73-393) 10/26/22 05:35 HCG, Qual Negative <10 mIU/mL 10/22/22 19:20 Fluid pH 8.5 10/25/22 19:17 Fluid WBC Cancelled 10/25/22 19:17 Fluid RBC Cancelled 10/25/22 19:17 Fluid Polynuclear WBCs Cancelled 10/25/22 19:17 Fluid Comment Cancelled 10/25/22 19:17 Pleural Fluid Volume Cancelled 10/25/22 19:17 Pleural Color Cancelled 10/25/22 19:17 Pleural Appearance Cancelled 10/25/22 19:17 Pleural WBC Cancelled 10/25/22 19:17 Pleural RBC Cancelled 10/25/22 19:17 Pleural Monocytes Cancelled 10/25/22 19:17 Pleural Glucose 93 10/25/22 19:17 SARS-CoV-2 (PCR) Negative (NEGATIVE) 10/22/22 19:20 Influenza Type A (PCR) Negative (NEGATIVE) 10/22/22 19:20 Influenza Type B (PCR) Negative (NEGATIVE) 10/22/22 19:20 RSV (PCR) Negative (NEGATIVE) 10/22/22 19:20 Resp Viral Panel (PCR) See scanned report 10/23/22 16:28 Assessment and Plan 1: acute pancreatitis . on clear liquid for now 2: pancreatic pseudocysts . expected to dissolve slowly . on IV ABT . 3: Lt pleural effusion, possible early pneumonia .s/p thoracentesis .. being observed with repeated Xray . on full liquid . OOB,DVT prophylaxis , incentive spirometer . awaiting fluid studies from paracentesis . Problem Patient Problems: Patient Problems (Updated 10/23/22 @ 14:12 by KENNY BENTON) Acute pancreatitis (Acute) K85.90 Pleural effusion on left (Acute) J90 Pancreatic mass (Acute) K86.9
[2022-10-26] MEDS: PULMICORT NEB TX 0.5 MG NEB SCH ×2 (08:51→21:00)
[2022-10-26] MEDS: DUONEB 0.5 MG/3 MG (3 mL) NEB SCH ×4 (08:51→21:00)
--- NOTE | 2022-10-26 14:11 | RAD ---
HISTORYTHORACENTESISSTUDYCHEST, 1 [id number]/2023FINDINGSThe cardiomediastinal silhouette is stable. Improving aeration in the left lung post thoracentesis. No pneumothorax. The bony thorax appears intact.IMPRESSIONImproving aeration in the left lung post thoracentesis.Electronically signed by: ELIANA CHOW (October 26, 2022 14:09:48)
--- NOTE | 2022-10-26 14:11 | RAD ---
HISTORYLLL PNEUMONIA AND EFFUSIONSTUDYCHEST, 1 VIEWCOMPARISONChest x-rays 10/25/2022FINDINGSThe heart is stable in size. The pulmonary vasculature is within normal limits. There is a persistent small left pleural effusion with associated atelectasis that appears slightly smaller when compared to priors. No pneumothorax. No acute osseous abnormality.IMPRESSIONMild interval decrease in a persistent small left pleural effusion with associated atelectasis..Electronically signed by: Conrad Yang (October 26, 2022 14:09:32)
--- NOTE | 2022-10-26 15:37 | PCM.PROG ---
Progress Note Progress Note for Day of Date of Exam: 10/26/22 Subjective Subjective: Patient is lying in the bed this morning sitting up. She is nauseated this morning feels like she has to throw up she reports. She did have a thoracentesis done yesterday and afterwards she reports that she could breathe much better and this morning she is still breathing much better to she says. Chest x-ray today shows only a small left pleural effusion now and her lipase has normalized and amylase is trending down and is almost normal now. She has no leukocytosis this morning. She is still taking clear fluids by mouth unfortunately it is causing her to get nausea. I am going to go ahead and proceed with a CT scan of the lungs today or in the morning so if we can find a reason for the pleural effusion. Past Medical Family Social History Past Med/Fam/Surg Hx: No changes since H&P Allergies: Allergies ketorolac [From Toradol] Allergy (Severe, Verified 10/23/22 02:43) RASH pt states that toradol causes a severe reddened, raised rash levofloxacin [From Levaquin] Allergy (Verified 10/23/22 16:42) piperacillin [From Zosyn] Allergy (Verified 10/23/22 17:08) tazobactam [From Zosyn] Allergy (Verified 10/23/22 17:08) Review of Systems ROS: No change since H&P Vital Signs and I&O's Vital Signs: Temperature 99.5 F Pulse Rate [Right] 104 Pulse Rate [Left Radial] 92 Pulse Rate 85 Respiratory Rate 24 Blood Pressure [Right Arm] 132/81 Blood Pressure [Left Arm] 123/71 Blood Pressure 123/77 O2 Sat by Pulse Oximetry 93 Intake and Output: Intake & Output 10/24/22 10/25/22 10/26/22 10/27/22 11:59 11:59 11:59 11:59 Intake Total 3106 / 3106 4587 / 4587 1949 Balance 3106 / 3106 4587 / 4587 1949 Physical Exam Oriented: Normal, Time, Person and Place Eyes: Normal Ear: Normal Nose: Normal Throat: Normal Respiratory: Left, Inferior, Diminished and Rhonchi Cardiovascular: Normal : Normal Auscultation: Bowel Sounds: Decreased Tenderness: Epigastric (and LUQ tenderness with hypoactive BS .) Skin: Normal Musculoskeletal: Normal Psychiatric: Normal Mood Description: Calm Affect: Normal Speech Pattern: Clear and Appropriate Laboratory and Diagnostics Result Diagrams: 10/26/22 05:35 10/26/22 05:35 Labs: 10/25/22 19:17 Pleural Fluid Gram Stain - Final 10/23/22 14:42 Blood Blood Culture - Preliminary 10/23/22 14:35 Blood Blood Culture - Preliminary Laboratory WBC 6.5 X10^3/uL (3.6-10.0) 10/26/22 05:35 RBC 4.19 X10^6/uL (3.5-5.4) 10/26/22 05:35 Hgb 12.6 g/dL (12.0-16.0) 10/26/22 05:35 Hct 35.8 % (36.0-47.0) L 10/26/22 05:35 MCV 85.4 fL (80.0-100.0) 10/26/22 05:35 MCH 30.0 pg (27.0-34.0) 10/26/22 05:35 MCHC 35.2 g/dL (33.0-35.0) H 10/26/22 05:35 RDW 12.8 % (11.6-16.5) 10/26/22 05:35 Plt Count 233 X10^3/uL (150.0-450.0) 10/26/22 05:35 MPV 8.1 fL (7.4-11.0) 10/26/22 05:35 Neut % (Auto) 80.2 % (42.0-75.0) H 10/26/22 05:35 Lymph % (Auto) 9.0 % (21.0-51.0) L 10/26/22 05:35 [place] % (Auto) 10.0 % (0.0-13.0) 10/26/22 05:35 Eos % (Auto) 0.4 % (0.9-2.9) L 10/26/22 05:35 Baso % (Auto) 0.4 % (0.2-1.0) 10/26/22 05:35 Neut # (Auto) 5.2 x10^3/uL (2.2-4.8) H 10/26/22 05:35 Lymph # (Auto) 0.6 X10^3/uL (1.3-2.9) L 10/26/22 05:35 [place] # (Auto) 0.7 x10^3/uL (0.3-0.8) 10/26/22 05:35 Eos # (Auto) 0.0 x10^3/uL (0.0-0.2) 10/26/22 05:35 Baso # (Auto) 0.0 X10^3/uL (0.0-0.1) 10/26/22 05:35 Absolute Nucleated RBC 0.0 /100WBC 10/26/22 05:35 Clot Appearance Cancelled 10/25/22 19:17 D-Dimer 0.71 ug/ml (0.0-0.57) H 10/22/22 19:20 Sodium 136 mmol/L (136-145) 10/26/22 05:35 Corrected Sodium 136 mmol/L (136-145) 10/26/22 05:35 Potassium 3.5 mmol/L (3.5-5.1) 10/26/22 05:35 Chloride 101 mmol/L (98-107) 10/26/22 05:35 Carbon Dioxide 27.3 mmol/L (21-32) 10/26/22 05:35 BUN 4 mg/dL (7-18) L 10/26/22 05:35 Creatinine 0.79 mg/dL (0.55-1.02) 10/26/22 05:35 Est GFR (MDRD) Af Amer > 60 (>60) 10/26/22 05:35 Est GFR (MDRD) Non-Af > 60 (>60) 10/26/22 05:35 Glucose 116 mg/dL (65-99) H 10/26/22 05:35 POC Glucose (mg/dL) 90 mg/dL (65-99) 10/24/22 16:09 Lactic Acid 0.7 mmol/L (0.4-2.0) 10/23/22 16:46 Calcium 8.4 mg/dL (8.5-10.1) L 10/26/22 05:35 Corrected Calcium 9.1 mg/dL (8.5-10.1) 10/26/22 05:35 Magnesium 2.1 mg/dL (2.0-2.9) 10/26/22 05:35 Total Bilirubin 1.30 mg/dL (0.2-1.0) H 10/26/22 05:35 AST 22 Units/L (15-37) 10/26/22 05:35 ALT 27 Units/L (12-78) 10/26/22 05:35 Alkaline Phosphatase 91 Units/L (46-116) 10/26/22 05:35 Troponin I High Sens < 4.0 ng/L (4.0-60.0) L 10/22/22 19:20 B-Natriuretic Peptide 11.8 pg/mL (0-79) 10/24/22 05:05 Total Protein 6.6 g/dL (6.4-8.2) 10/26/22 05:35 Albumin 3.1 g/dL (3.4-5.0) L 10/26/22 05:35 Globulin 3.5 g/dL (2.5-4.5) 10/26/22 05:35 Albumin/Globulin Ratio 0.9 Ratio (1.1-2.1) L 10/26/22 05:35 Amylase 151 Units/L (25-115) H 10/26/22 05:35 Lipase 366 Units/L (73-393) 10/26/22 05:35 HCG, Qual Negative <10 mIU/mL 10/22/22 19:20 Fluid pH 8.5 10/25/22 19:17 Fluid WBC Cancelled 10/25/22 19:17 Fluid RBC Cancelled 10/25/22 19:17 Fluid Polynuclear WBCs Cancelled 10/25/22 19:17 Fluid Comment Cancelled 10/25/22 19:17 Pleural Fluid Volume Cancelled 10/25/22 19:17 Pleural Color Cancelled 10/25/22 19:17 Pleural Appearance Cancelled 10/25/22 19:17 Pleural WBC Cancelled 10/25/22 19:17 Pleural RBC Cancelled 10/25/22 19:17 Pleural Monocytes Cancelled 10/25/22 19:17 Pleural Glucose 93 10/25/22 19:17 SARS-CoV-2 (PCR) Negative (NEGATIVE) 10/22/22 19:20 Influenza Type A (PCR) Negative (NEGATIVE) 10/22/22 19:20 Influenza Type B (PCR) Negative (NEGATIVE) 10/22/22 19:20 RSV (PCR) Negative (NEGATIVE) 10/22/22 19:20 Resp Viral Panel (PCR) See scanned report 10/23/22 16:28 Plan (1) Acute pancreatitis: Status: Acute Narrative Support Text: Improving overall. Plan: General surgery is ordering another CT of the abdomen/pelvis with p.o. and IV contrast today. Follow-up with results later today. Repeat amylase lipase tomorrow morning. (2) Pleural effusion on left: Status: Acute Plan: Check CT scan with contrast of the lungs. Follow-up with cytology results when available. (3) Pancreatic mass: Status: Acute Plan: Work-up per general surgery. Follow-up CA 199 level when available. (4) Left lower lobe pneumonia: Status: Acute Plan: Continue the patient on meropenem 500 mg IV every 8 hours. Repeat daily chest x-rays. (5) Nausea and vomiting: Status: Acute Plan: Continue as needed Zofran.
[2022-10-26] MEDS: PERCOCET TAB 5/325 MG PO PRN (20:03)
[2022-10-26] MEDS: NORCO 5/325 MG TAB PO PRN (21:58)
[2022-10-27] MEDS: D5 1/2 NS 1,000 ML 1,000 ML IV SCH ×3 (01:25→23:05)
[2022-10-27] MEDS: PERCOCET TAB 5/325 MG PO PRN ×3 (03:02→15:35)
[2022-10-27] MEDS: ZOFRAN INJ 4 MG VIAL IVP PRN ×4 (03:02→20:01)
[2022-10-27] MEDS: NORCO 5/325 MG TAB PO PRN ×3 (04:46→21:48)
[2022-10-27] MEDS: MERREM VIAL 500 MG in NS 100 ML IV 100 ML IV SCH ×3 (05:15→21:48)
[2022-10-27 05:41] LABS: ERYTHROCYTE SEDIMENTATION RATE 55 MM/HOUR (0-20)
[2022-10-27 05:51] LABS: BASOPHILS % (AUTO) 0.4 % (0.2-1.0); EOSINOPHILS % (AUTO) 0.4 % (0.9-2.9); HEMATOCRIT 35.3 % (36.0-47.0); HEMOGLOBIN 12.4 g/dL (12.0-16.0); LYMPHOCYTES # (AUTO) 0.7 X10^3/uL (1.3-2.9); LYMPHOCYTES % (AUTO) 9.9 % (21.0-51.0); MEAN CORPUSCULAR HEMOGLOBIN 29.9 pg (27.0-34.0); MEAN CORPUSCULAR HGB CONC 35.2 g/dL (33.0-35.0); MEAN CORPUSCULAR VOLUME 84.8 fL (80.0-100.0); MEAN PLATELET VOLUME 8.2 fL (7.4-11.0); MONOCYTES # (AUTO) 0.7 x10^3/uL (0.3-0.8); MONOCYTES % (AUTO) 9.6 % (0.0-13.0); NEUTROPHILS # (AUTO) 5.8 x10^3/uL (2.2-4.8); NEUTROPHILS % (AUTO) 79.7 % (42.0-75.0); PLATELET COUNT 234 X10^3/uL (150.0-450.0); RED BLOOD COUNT 4.16 X10^6/uL (3.5-5.4); WHITE BLOOD COUNT 7.3 X10^3/uL (3.6-10.0)
[2022-10-27] MEDS: MORPHINE SULFATE INJ 4 MG IVP PRN ×3 (05:56→20:01)
[2022-10-27 06:02] LABS: ALANINE AMINOTRANSFERASE 73 Units/L (12-78); ALBUMIN 2.8 g/dL (3.4-5.0); ALKALINE PHOSPHATASE 133 Units/L (46-116); ASPARTATE AMINO TRANSFERASE 69 Units/L (15-37); BLOOD UREA NITROGEN 4 mg/dL (7-18); CALCIUM 8.3 mg/dL (8.5-10.1); CARBON DIOXIDE 31.8 mmol/L (21-32); CHLORIDE 98 mmol/L (98-107); COR CA(FOR HYPOALB) 9.3 mg/dL (8.5-10.1); COR NA(FOR HYPERGLY) 138 mmol/L (136-145); CREATININE 0.75 mg/dL (0.55-1.02); GLUCOSE 123 mg/dL (65-99); MAGNESIUM 2.1 mg/dL (2.0-2.9); SODIUM 137 mmol/L (136-145); TOTAL PROTEIN 6.7 g/dL (6.4-8.2); eGFR NON BLACK RACES > 60 (>60)
[2022-10-27 08:14] LABS: AMYLASE 106 Units/L (25-115); LIPASE 281 Units/L (73-393)
--- NOTE | 2022-10-27 08:35 | CT ---
HISTORYPneumonia, shortness of breath, pleural effusionSTUDYCT chest with contrastTechnique: Axial post-contrast images with coronal and sagittal reformats. Dose reduction procedures were used with mA/kv adjusted for body size.COMPARISONNoneFINDINGSExamination of the mediastinum demonstrated no evidence for mediastinal masses, enlarged mediastinal or enlarged hilar adenopathy or significant aortic abnormality. Trace right pleural effusion is present with minimal adjacent atelectatic change in the right lower lobe. Larger left pleural effusion is present with more prominent atelectatic change in the left lower lobe. The previously described left pleural space loculated fluid collection has increased in size now measuring at least 7.2 x 5.7 cm as compared to 5.1 x 4.7 cm. Pleural abscess not excluded. No chest wall or axillary abnormality is identified. Those portions of the upper abdominal organs visualized were within normal limits with the exception of the previously noted pancreatic tail pseudocyst which is partially visualized but measures approximately 6.2 cm in diameter. The lungs appear free of nodules, masses, alveolar infiltrates, and areas of consolidation.IMPRESSIONModerately large left pleural effusion with atelectatic change in the adjacent left lower lobeIncreasing complex fluid collection within the left pleural space now measuring at least 7.2 x 5.7 cm as compared to 5.1 x 4.7 cm on the prior examination. Pleural abscess or intrathoracic pancreatic pseudocyst are possibilities.Small right pleural effusion with mild adjacent atelectatic changesPartially visualized but not likely not significantly changed pancreatic tail pseudocystElectronically signed by: ELIANA CHOW (October 27, 2022 08:34:05)
[2022-10-27] MEDS: PULMICORT NEB TX 0.5 MG NEB SCH ×2 (08:53→20:30)
[2022-10-27] MEDS: DUONEB 0.5 MG/3 MG (3 mL) NEB SCH ×3 (08:53→20:30)
[2022-10-27] MEDS ORDERED: TUSSIONEX PENNKINETIC SUSP PO PRN (14:36)
--- NOTE | 2022-10-27 15:24 | PCM.PROG ---
Progress Note Progress Note for Day of Date of Exam: 10/27/22 Subjective Subjective: Patient is sitting up in the bed this morning. She reports she is still having some nausea especially after taking clear fluids. However her amylase and lipase have normalized this morning. We have advanced her to a soft diet and she has been eating some mashed potatoes with gravy from [facility]. She only ate a little bit this so far has been tolerating it. She still continues to have some epigastric and right upper quadrant pain but overall is improved since admission. The cytology is still pending from the thoracentesis however her pH and glucose levels were normal. There was no bacteria seen in the fluid that was taken off her left lung. Dr. Edwards thought this to be reactive process from the pancreatitis and pancreatic pseudocyst and possible pneumonia. The CA 199 has come back this morning and it is normal at 11. I do see that her total bilirubin is up again this morning from yesterday but it was normal on admission. Currently I am uncertain why the total bilirubin is going up but we will continue to monitor it daily. Her AST was also elevated this morning. The patient's color looks better to me today and she does not look as ill as she has been looking on the prior days. Her white blood cell count remains normal and the CT scan she had this morning showed a moderately large left pleural effusion. There was increased complex fluid collection within the left pleural space that was larger compared to a previous x-ray. Also seen was a small right pleural effusion. AIT throat swab grew out Streptococcus pneumoniae and it is sensitive to meropenem. The patient is also complaining with pain with deep breathing in the right side of her lung and with cough. I told her this is pleurisy and will order her some Tussionex cough medicine for it. Past Medical Family Social History Past Med/Fam/Surg Hx: No changes since H&P Allergies: Allergies ketorolac [From Toradol] Allergy (Severe, Verified 10/23/22 02:43) RASH pt states that toradol causes a severe reddened, raised rash levofloxacin [From Levaquin] Allergy (Verified 10/23/22 16:42) piperacillin [From Zosyn] Allergy (Verified 10/23/22 17:08) tazobactam [From Zosyn] Allergy (Verified 10/23/22 17:08) Review of Systems ROS: No change since H&P Vital Signs and I&O's Vital Signs: Temperature 98.7 F Pulse Rate [Right] 107 Pulse Rate [Left Radial] 92 Pulse Rate 75 Respiratory Rate 18 Blood Pressure [Right Arm] 132/81 Blood Pressure [Left Arm] 114/75 Blood Pressure 123/77 O2 Sat by Pulse Oximetry 95 Intake and Output: Intake & Output 10/25/22 10/26/22 10/27/22 10/28/22 11:59 11:59 11:59 11:59 Intake Total 4587 / 4587 1949 1507 / 1507 975 / 975 Balance 4587 / 4587 1949 1507 / 1507 975 / 975 Physical Exam Oriented: Normal, Time, Person and Place Eyes: Normal Ear: Normal Nose: Normal Throat: Normal Respiratory: Left, Inferior, Diminished and Rhonchi Cardiovascular: Normal : Normal Auscultation: Bowel Sounds: Decreased Tenderness: Epigastric (and LUQ tenderness with hypoactive BS .) Skin: Normal Musculoskeletal: Normal Psychiatric: Normal Mood Description: Calm Affect: Normal Speech Pattern: Clear and Appropriate Laboratory and Diagnostics Result Diagrams: 10/27/22 04:49 10/27/22 04:49 Labs: 10/25/22 19:17 Pleural Fluid - Preliminary 10/25/22 19:17 Pleural Fluid Gram Stain - Final 10/23/22 14:42 Blood Blood Culture - Preliminary 10/23/22 14:35 Blood Blood Culture - Preliminary Laboratory WBC 7.3 X10^3/uL (3.6-10.0) 10/27/22 04:49 RBC 4.16 X10^6/uL (3.5-5.4) 10/27/22 04:49 Hgb 12.4 g/dL (12.0-16.0) 10/27/22 04:49 Hct 35.3 % (36.0-47.0) L 10/27/22 04:49 MCV 84.8 fL (80.0-100.0) 10/27/22 04:49 MCH 29.9 pg (27.0-34.0) 10/27/22 04:49 MCHC 35.2 g/dL (33.0-35.0) H 10/27/22 04:49 RDW 13.0 % (11.6-16.5) 10/27/22 04:49 Plt Count 234 X10^3/uL (150.0-450.0) 10/27/22 04:49 MPV 8.2 fL (7.4-11.0) 10/27/22 04:49 Neut % (Auto) 79.7 % (42.0-75.0) H 10/27/22 04:49 Lymph % (Auto) 9.9 % (21.0-51.0) L 10/27/22 04:49 [place] % (Auto) 9.6 % (0.0-13.0) 10/27/22 04:49 Eos % (Auto) 0.4 % (0.9-2.9) L 10/27/22 04:49 Baso % (Auto) 0.4 % (0.2-1.0) 10/27/22 04:49 Neut # (Auto) 5.8 x10^3/uL (2.2-4.8) H 10/27/22 04:49 Lymph # (Auto) 0.7 X10^3/uL (1.3-2.9) L 10/27/22 04:49 [place] # (Auto) 0.7 x10^3/uL (0.3-0.8) 10/27/22 04:49 Eos # (Auto) 0.0 x10^3/uL (0.0-0.2) 10/27/22 04:49 Baso # (Auto) 0.0 X10^3/uL (0.0-0.1) 10/27/22 04:49 Absolute Nucleated RBC 0.0 /100WBC 10/27/22 04:49 ESR 55 MM/HOUR (0-20) H 10/27/22 04:49 Clot Appearance Cancelled 10/25/22 19:17 D-Dimer 0.71 ug/ml (0.0-0.57) H 10/22/22 19:20 Sodium 137 mmol/L (136-145) 10/27/22 04:49 Corrected Sodium 138 mmol/L (136-145) 10/27/22 04:49 Potassium 4.0 mmol/L (3.5-5.1) 10/27/22 04:49 Chloride 98 mmol/L (98-107) 10/27/22 04:49 Carbon Dioxide 31.8 mmol/L (21-32) 10/27/22 04:49 BUN 4 mg/dL (7-18) L 10/27/22 04:49 Creatinine 0.75 mg/dL (0.55-1.02) 10/27/22 04:49 Est GFR (MDRD) Af Amer > 60 (>60) 10/27/22 04:49 Est GFR (MDRD) Non-Af > 60 (>60) 10/27/22 04:49 Glucose 123 mg/dL (65-99) H 10/27/22 04:49 POC Glucose (mg/dL) 90 mg/dL (65-99) 10/24/22 16:09 Lactic Acid 0.7 mmol/L (0.4-2.0) 10/23/22 16:46 Calcium 8.3 mg/dL (8.5-10.1) L 10/27/22 04:49 Corrected Calcium 9.3 mg/dL (8.5-10.1) 10/27/22 04:49 Magnesium 2.1 mg/dL (2.0-2.9) 10/27/22 04:49 Total Bilirubin 2.00 mg/dL (0.2-1.0) H 10/27/22 04:49 AST 69 Units/L (15-37) H 10/27/22 04:49 ALT 73 Units/L (12-78) 10/27/22 04:49 Alkaline Phosphatase 133 Units/L (46-116) H 10/27/22 04:49 Troponin I High Sens < 4.0 ng/L (4.0-60.0) L 10/22/22 19:20 C-Reactive Protein 302.60 mg/L (0-3.0) H 10/27/22 04:49 B-Natriuretic Peptide 11.8 pg/mL (0-79) 10/24/22 05:05 Total Protein 6.7 g/dL (6.4-8.2) 10/27/22 04:49 Albumin 2.8 g/dL (3.4-5.0) L 10/27/22 04:49 Globulin 3.9 g/dL (2.5-4.5) 10/27/22 04:49 Albumin/Globulin Ratio 0.7 Ratio (1.1-2.1) L 10/27/22 04:49 Amylase 106 Units/L (25-115) 10/27/22 04:49 Lipase 281 Units/L (73-393) 10/27/22 04:49 CA 19-9 Antigen 11 U/mL (<=35) 10/23/22 14:42 HCG, Qual Negative <10 mIU/mL 10/22/22 19:20 Fluid pH 8.5 10/25/22 19:17 Fluid WBC Cancelled 10/25/22 19:17 Fluid RBC Cancelled 10/25/22 19:17 Fluid Polynuclear WBCs Cancelled 10/25/22 19:17 Fluid Comment Cancelled 10/25/22 19:17 Pleural Fluid Volume Cancelled 10/25/22 19:17 Pleural Color Cancelled 10/25/22 19:17 Pleural Appearance Cancelled 10/25/22 19:17 Pleural WBC Cancelled 10/25/22 19:17 Pleural RBC Cancelled 10/25/22 19:17 Pleural Monocytes Cancelled 10/25/22 19:17 Pleural Glucose 93 10/25/22 19:17 SARS-CoV-2 (PCR) Negative (NEGATIVE) 10/22/22 19:20 Influenza Type A (PCR) Negative (NEGATIVE) 10/22/22 19:20 Influenza Type B (PCR) Negative (NEGATIVE) 10/22/22 19:20 RSV (PCR) Negative (NEGATIVE) 10/22/22 19:20 Resp Viral Panel (PCR) See scanned report 10/23/22 16:28 Radiology Reviewed: Yes Plan (1) Acute pancreatitis: Status: Resolved Plan: Overall improved. We are advanced patient to a soft diet and add Marinol twice daily for improved nausea control and to increase her appetite. (2) Pleural effusion on left: Status: Acute Plan: Follow-up with cytology results when available and repeat portable chest x-ray tomorrow morning. We will decrease the patient's IV fluid back to 75 mL an hour. (3) Pancreatic mass: Status: Acute Narrative Support Text: Pancreatic mass is secondary to a pancreatic pseudocyst. CA 199 is normal at 11. (4) Left lower lobe pneumonia: Status: Acute Narrative Support Text: AIT throat swab showed the patient grew out Streptococcus pneumoniae which is se nsitive to meropenem. Plan: Continue the patient on meropenem 500 mg IV every 8 hours. Repeat daily chest x-rays. (5) Nausea and vomiting: Status: Acute Plan: Continue as needed Zofran. I am adding Marinol 5 mg twice daily for improved nausea control (6) Pleurisy with effusion: Status: Acute Plan: Repeat chest x-ray tomorrow morning and start the patient on Tussionex 5 mL every 12 hours as needed cough and cold. (7) Anorexia: Status: Acute Plan: Starting Marinol 5 mg twice daily. (8) Hyperbilirubinemia: Status: Acute Plan: Check direct bili Jose Miguel level today and a bilirubin panel tomorrow morning.
[2022-10-27] MEDS: TYLENOL 325 MG TAB PO PRN (16:30)
[2022-10-27] MEDS: MARINOL PO SCH (16:30)
--- NOTE | 2022-10-27 23:01 | DR.PROGNOT ---
HOSPITAL PROGRESS NOTE Progress Note for Day of: Progress Note Date: 10/27/22 Chief Complaint Chief Complaint: same upper abdominal and Lt chest pain . Amylase, lipase are normal today . passing flatus , no BM yet . Past Medical Family Social History Past Med/Fam/Surg Hx: No changes since H&P Allergies: Allergies ketorolac [From Toradol] Allergy (Severe, Verified 10/23/22 02:43) RASH pt states that toradol causes a severe reddened, raised rash levofloxacin [From Levaquin] Allergy (Verified 10/23/22 16:42) piperacillin [From Zosyn] Allergy (Verified 10/23/22 17:08) tazobactam [From Zosyn] Allergy (Verified 10/23/22 17:08) Review Of Systems ROS: No change since H&P Vital Signs Vital Signs: Temperature 99.1 F Pulse Rate [Right] 94 Pulse Rate [Left Radial] 92 Pulse Rate 75 Respiratory Rate 20 Blood Pressure [Right Arm] 132/81 Blood Pressure [Left Arm] 122/75 Blood Pressure 123/77 O2 Sat by Pulse Oximetry 96 Physical Exam Oriented: Normal, Time, Person and Place Eyes: Normal Ear: Normal Nose: Normal Throat: Normal Respiratory: Left, Inferior, Diminished and Rhonchi Cardiovascular: Normal : Normal GI:Auscultation: Decreased GI:Palpation: Normal GI: Tenderness: Epigastric (and LUQ tenderness with hypoactive BS .) Skin: Normal Musculoskeletal: Normal Psychiatric: Normal Mood Description: Calm Affect: Normal Speech Pattern: Clear and Appropriate Laboratory and Diagnostics Result Diagrams: 10/27/22 04:49 10/27/22 04:49 Labs: 10/25/22 19:17 Pleural Fluid - Preliminary 10/25/22 19:17 Pleural Fluid Gram Stain - Final 10/23/22 14:42 Blood Blood Culture - Preliminary 10/23/22 14:35 Blood Blood Culture - Preliminary Laboratory WBC 7.3 X10^3/uL (3.6-10.0) 10/27/22 04:49 RBC 4.16 X10^6/uL (3.5-5.4) 10/27/22 04:49 Hgb 12.4 g/dL (12.0-16.0) 10/27/22 04:49 Hct 35.3 % (36.0-47.0) L 10/27/22 04:49 MCV 84.8 fL (80.0-100.0) 10/27/22 04:49 MCH 29.9 pg (27.0-34.0) 10/27/22 04:49 MCHC 35.2 g/dL (33.0-35.0) H 10/27/22 04:49 RDW 13.0 % (11.6-16.5) 10/27/22 04:49 Plt Count 234 X10^3/uL (150.0-450.0) 10/27/22 04:49 MPV 8.2 fL (7.4-11.0) 10/27/22 04:49 Neut % (Auto) 79.7 % (42.0-75.0) H 10/27/22 04:49 Lymph % (Auto) 9.9 % (21.0-51.0) L 10/27/22 04:49 [place] % (Auto) 9.6 % (0.0-13.0) 10/27/22 04:49 Eos % (Auto) 0.4 % (0.9-2.9) L 10/27/22 04:49 Baso % (Auto) 0.4 % (0.2-1.0) 10/27/22 04:49 Neut # (Auto) 5.8 x10^3/uL (2.2-4.8) H 10/27/22 04:49 Lymph # (Auto) 0.7 X10^3/uL (1.3-2.9) L 10/27/22 04:49 [place] # (Auto) 0.7 x10^3/uL (0.3-0.8) 10/27/22 04:49 Eos # (Auto) 0.0 x10^3/uL (0.0-0.2) 10/27/22 04:49 Baso # (Auto) 0.0 X10^3/uL (0.0-0.1) 10/27/22 04:49 Absolute Nucleated RBC 0.0 /100WBC 10/27/22 04:49 ESR 55 MM/HOUR (0-20) H 10/27/22 04:49 Clot Appearance Cancelled 10/25/22 19:17 D-Dimer 0.71 ug/ml (0.0-0.57) H 10/22/22 19:20 Sodium 137 mmol/L (136-145) 10/27/22 04:49 Corrected Sodium 138 mmol/L (136-145) 10/27/22 04:49 Potassium 4.0 mmol/L (3.5-5.1) 10/27/22 04:49 Chloride 98 mmol/L (98-107) 10/27/22 04:49 Carbon Dioxide 31.8 mmol/L (21-32) 10/27/22 04:49 BUN 4 mg/dL (7-18) L 10/27/22 04:49 Creatinine 0.75 mg/dL (0.55-1.02) 10/27/22 04:49 Est GFR (MDRD) Af Amer > 60 (>60) 10/27/22 04:49 Est GFR (MDRD) Non-Af > 60 (>60) 10/27/22 04:49 Glucose 123 mg/dL (65-99) H 10/27/22 04:49 POC Glucose (mg/dL) 90 mg/dL (65-99) 10/24/22 16:09 Lactic Acid 0.7 mmol/L (0.4-2.0) 10/23/22 16:46 Calcium 8.3 mg/dL (8.5-10.1) L 10/27/22 04:49 Corrected Calcium 9.3 mg/dL (8.5-10.1) 10/27/22 04:49 Magnesium 2.1 mg/dL (2.0-2.9) 10/27/22 04:49 Total Bilirubin 2.00 mg/dL (0.2-1.0) H 10/27/22 04:49 Direct Bilirubin 1.60 mg/dL (0-0.2) H 10/27/22 15:45 AST 69 Units/L (15-37) H 10/27/22 04:49 ALT 73 Units/L (12-78) 10/27/22 04:49 Alkaline Phosphatase 133 Units/L (46-116) H 10/27/22 04:49 Troponin I High Sens < 4.0 ng/L (4.0-60.0) L 10/22/22 19:20 C-Reactive Protein 302.60 mg/L (0-3.0) H 10/27/22 04:49 B-Natriuretic Peptide 11.8 pg/mL (0-79) 10/24/22 05:05 Total Protein 6.7 g/dL (6.4-8.2) 10/27/22 04:49 Albumin 2.8 g/dL (3.4-5.0) L 10/27/22 04:49 Globulin 3.9 g/dL (2.5-4.5) 10/27/22 04:49 Albumin/Globulin Ratio 0.7 Ratio (1.1-2.1) L 10/27/22 04:49 Amylase 106 Units/L (25-115) 10/27/22 04:49 Lipase 281 Units/L (73-393) 10/27/22 04:49 CA 19-9 Antigen 11 U/mL (<=35) 10/23/22 14:42 HCG, Qual Negative <10 mIU/mL 10/22/22 19:20 Fluid pH 8.5 10/25/22 19:17 Fluid WBC Cancelled 10/25/22 19:17 Fluid RBC Cancelled 10/25/22 19:17 Fluid Polynuclear WBCs Cancelled 10/25/22 19:17 Fluid Comment Cancelled 10/25/22 19:17 Pleural Fluid Volume Cancelled 10/25/22 19:17 Pleural Color Cancelled 10/25/22 19:17 Pleural Appearance Cancelled 10/25/22 19:17 Pleural WBC Cancelled 10/25/22 19:17 Pleural RBC Cancelled 10/25/22 19:17 Pleural Monocytes Cancelled 10/25/22 19:17 Pleural Glucose 93 10/25/22 19:17 SARS-CoV-2 (PCR) Negative (NEGATIVE) 10/22/22 19:20 Influenza Type A (PCR) Negative (NEGATIVE) 10/22/22 19:20 Influenza Type B (PCR) Negative (NEGATIVE) 10/22/22 19:20 RSV (PCR) Negative (NEGATIVE) 10/22/22 19:20 Resp Viral Panel (PCR) See scanned report 10/23/22 16:28 Assessment and Plan 1: acute pancreatitis . on full liquid 2: pancreatic pseudocysts . expected to dissolve slowly . on IV ABT . 3: Lt pleural effusion, possible early pneumonia .s/p thoracentesis .. being observed with repeated Xray . on full liquid . OOB,DVT prophylaxis , incentive spirometer . awaiting fluid studies from paracentesis . D/W Pt and family in details including transfer . .Pt and family want to stay here and continue same plan .. Problem Patient Problems: Patient Problems (Updated 10/27/22 @ 15:15 by KENNY BENTON) Acute pancreatitis (Resolved) K85.90 Pleural effusion on left (Acute) J90 Pancreatic mass (Acute) K86.9
[2022-10-28] MEDS: PERCOCET TAB 5/325 MG PO PRN ×3 (01:12→16:41)
[2022-10-28] MEDS: MORPHINE SULFATE INJ 4 MG IVP PRN ×3 (03:04→14:08)
[2022-10-28] MEDS: ZOFRAN INJ 4 MG VIAL IVP PRN ×2 (03:05→09:19)
[2022-10-28] MEDS: D5 1/2 NS 1,000 ML 1,000 ML IV SCH ×2 (03:05→15:05)
[2022-10-28] MEDS: MERREM VIAL 500 MG in NS 100 ML IV 100 ML IV SCH ×2 (05:04→15:07)
[2022-10-28] MEDS: NORCO 5/325 MG TAB PO PRN (05:05)
[2022-10-28 05:12] LABS: BASOPHILS % (AUTO) 0.5 % (0.2-1.0); EOSINOPHILS % (AUTO) 0.5 % (0.9-2.9); HEMATOCRIT 34.7 % (36.0-47.0); LYMPHOCYTES % (AUTO) 10.5 % (21.0-51.0); MEAN CORPUSCULAR HEMOGLOBIN 29.5 pg (27.0-34.0); MEAN CORPUSCULAR HGB CONC 34.7 g/dL (33.0-35.0); MEAN CORPUSCULAR VOLUME 84.9 fL (80.0-100.0); MONOCYTES # (AUTO) 0.7 x10^3/uL (0.3-0.8); MONOCYTES % (AUTO) 7.3 % (0.0-13.0); NEUTROPHILS # (AUTO) 7.3 x10^3/uL (2.2-4.8); NEUTROPHILS % (AUTO) 81.2 % (42.0-75.0); PLATELET COUNT 233 X10^3/uL (150.0-450.0); RED BLOOD COUNT 4.09 X10^6/uL (3.5-5.4); RED CELL DISTRIBUTION WIDTH 13.1 % (11.6-16.5)
[2022-10-28 05:18] LABS: ALANINE AMINOTRANSFERASE 115 Units/L (12-78); ALBUMIN 2.6 g/dL (3.4-5.0); ALKALINE PHOSPHATASE 156 Units/L (46-116); ASPARTATE AMINO TRANSFERASE 93 Units/L (15-37); BLOOD UREA NITROGEN 5 mg/dL (7-18); CALCIUM 8.5 mg/dL (8.5-10.1); CARBON DIOXIDE 31.9 mmol/L (21-32); CHLORIDE 99 mmol/L (98-107); COR CA(FOR HYPOALB) 9.6 mg/dL (8.5-10.1); CREATININE 0.71 mg/dL (0.55-1.02); GLUCOSE 109 mg/dL (65-99); POTASSIUM 3.5 mmol/L (3.5-5.1); SODIUM 136 mmol/L (136-145); TOTAL PROTEIN 6.6 g/dL (6.4-8.2); eGFR NON BLACK RACES > 60 (>60)
[2022-10-28 05:27] LABS: PLATELET MORPHOLOGY COMMENT NORMAL (NORMAL)
--- NOTE | 2022-10-28 08:04 | RAD ---
HISTORYLeft pneumonia and pleural ifSTUDYAP [id number] size remains normal with no new abnormality identified in the right chest. There is persistent opacification at the left base as before. The left upper lung remains clear.IMPRESSIONNo change/new abnormality since recent similar.Electronically signed by: ZEINA DUONG (October 28, 2022 08:02:35)
[2022-10-28] MEDS: DUONEB 0.5 MG/3 MG (3 mL) NEB SCH ×2 (09:15→12:02)
[2022-10-28] MEDS: PULMICORT NEB TX 0.5 MG NEB SCH (09:16)
--- NOTE | 2022-10-28 09:47 | DR.PROGNOT ---
HOSPITAL PROGRESS NOTE Progress Note for Day of: Progress Note Date: 10/28/22 Chief Complaint Chief Complaint: same upper abdominal and Lt chest pain . Amylase, lipase are normal today . passing flatus , no BM yet . stable Lt pleural effusion . Past Medical Family Social History Past Med/Fam/Surg Hx: No changes since H&P Allergies: Allergies ketorolac [From Toradol] Allergy (Severe, Verified 10/23/22 02:43) RASH pt states that toradol causes a severe reddened, raised rash levofloxacin [From Levaquin] Allergy (Verified 10/23/22 16:42) piperacillin [From Zosyn] Allergy (Verified 10/23/22 17:08) tazobactam [From Zosyn] Allergy (Verified 10/23/22 17:08) Review Of Systems ROS: No change since H&P Vital Signs Vital Signs: Temperature 98.2 F Pulse Rate [Right] 96 Pulse Rate [Left Radial] 92 Pulse Rate 93 Respiratory Rate 18 Blood Pressure [Right Arm] 132/81 Blood Pressure [Left Arm] 109/58 Blood Pressure 123/77 O2 Sat by Pulse Oximetry 94 Physical Exam Oriented: Normal, Time, Person and Place Eyes: Normal Ear: Normal Nose: Normal Throat: Normal Respiratory: Left, Inferior, Diminished and Rhonchi Cardiovascular: Normal : Normal GI:Auscultation: Decreased GI:Palpation: Normal GI: Tenderness: Epigastric (and LUQ tenderness with hypoactive BS .) Skin: Normal Musculoskeletal: Normal Psychiatric: Normal Mood Description: Calm Affect: Normal Speech Pattern: Clear and Appropriate Laboratory and Diagnostics Result Diagrams: 10/28/22 04:41 10/28/22 04:41 Labs: 10/25/22 19:17 Pleural Fluid - Preliminary 10/25/22 19:17 Pleural Fluid Gram Stain - Final 10/23/22 14:42 Blood Blood Culture - Preliminary 10/23/22 14:35 Blood Blood Culture - Preliminary Laboratory WBC 9.0 X10^3/uL (3.6-10.0) 10/28/22 04:41 RBC 4.09 X10^6/uL (3.5-5.4) 10/28/22 04:41 Hgb 12.0 g/dL (12.0-16.0) 10/28/22 04:41 Hct 34.7 % (36.0-47.0) L 10/28/22 04:41 MCV 84.9 fL (80.0-100.0) 10/28/22 04:41 MCH 29.5 pg (27.0-34.0) 10/28/22 04:41 MCHC 34.7 g/dL (33.0-35.0) 10/28/22 04:41 RDW 13.1 % (11.6-16.5) 10/28/22 04:41 Plt Count 233 X10^3/uL (150.0-450.0) 10/28/22 04:41 Plt Count Comment Adequate (ADEQUATE) 10/28/22 04:41 MPV 8.0 fL (7.4-11.0) 10/28/22 04:41 Neut % (Auto) 81.2 % (42.0-75.0) H 10/28/22 04:41 Lymph % (Auto) 10.5 % (21.0-51.0) L 10/28/22 04:41 [place] % (Auto) 7.3 % (0.0-13.0) 10/28/22 04:41 Eos % (Auto) 0.5 % (0.9-2.9) L 10/28/22 04:41 Baso % (Auto) 0.5 % (0.2-1.0) 10/28/22 04:41 Neut # (Auto) 7.3 x10^3/uL (2.2-4.8) H 10/28/22 04:41 Lymph # (Auto) 1.0 X10^3/uL (1.3-2.9) L 10/28/22 04:41 [place] # (Auto) 0.7 x10^3/uL (0.3-0.8) 10/28/22 04:41 Eos # (Auto) 0.0 x10^3/uL (0.0-0.2) 10/28/22 04:41 Baso # (Auto) 0.0 X10^3/uL (0.0-0.1) 10/28/22 04:41 Absolute Nucleated RBC 0.0 /100WBC 10/28/22 04:41 Plt Morphology Comment Normal (NORMAL) 10/28/22 04:41 RBC Morphology Normal (NORMAL) 10/28/22 04:41 ESR 55 MM/HOUR (0-20) H 10/27/22 04:49 Clot Appearance Cancelled 10/25/22 19:17 D-Dimer 0.71 ug/ml (0.0-0.57) H 10/22/22 19:20 Sodium 136 mmol/L (136-145) 10/28/22 04:41 Corrected Sodium TNP 10/28/22 04:41 Potassium 3.5 mmol/L (3.5-5.1) 10/28/22 04:41 Chloride 99 mmol/L (98-107) 10/28/22 04:41 Carbon Dioxide 31.9 mmol/L (21-32) 10/28/22 04:41 BUN 5 mg/dL (7-18) L 10/28/22 04:41 Creatinine 0.71 mg/dL (0.55-1.02) 10/28/22 04:41 Est GFR (MDRD) Af Amer > 60 (>60) 10/28/22 04:41 Est GFR (MDRD) Non-Af > 60 (>60) 10/28/22 04:41 Glucose 109 mg/dL (65-99) H 10/28/22 04:41 POC Glucose (mg/dL) 90 mg/dL (65-99) 10/24/22 16:09 Lactic Acid 0.7 mmol/L (0.4-2.0) 10/23/22 16:46 Calcium 8.5 mg/dL (8.5-10.1) 10/28/22 04:41 Corrected Calcium 9.6 mg/dL (8.5-10.1) 10/28/22 04:41 Magnesium 2.1 mg/dL (2.0-2.9) 10/27/22 04:49 Total Bilirubin 1.80 mg/dL (0.2-1.0) H 10/28/22 04:41 Direct Bilirubin 1.20 mg/dL (0-0.2) H 10/28/22 04:41 Indirect Bilirubin 0.60 mg/dL (0.2-0.8) 10/28/22 04:41 AST 93 Units/L (15-37) H 10/28/22 04:41 ALT 115 Units/L (12-78) H 10/28/22 04:41 Alkaline Phosphatase 156 Units/L (46-116) H 10/28/22 04:41 Troponin I High Sens < 4.0 ng/L (4.0-60.0) L 10/22/22 19:20 C-Reactive Protein 302.60 mg/L (0-3.0) H 10/27/22 04:49 B-Natriuretic Peptide 11.8 pg/mL (0-79) 10/24/22 05:05 Total Protein 6.6 g/dL (6.4-8.2) 10/28/22 04:41 Albumin 2.6 g/dL (3.4-5.0) L 10/28/22 04:41 Globulin 4.0 g/dL (2.5-4.5) 10/28/22 04:41 Albumin/Globulin Ratio 0.7 Ratio (1.1-2.1) L 10/28/22 04:41 Amylase 106 Units/L (25-115) 10/27/22 04:49 Lipase 281 Units/L (73-393) 10/27/22 04:49 CA 19-9 Antigen 11 U/mL (<=35) 10/23/22 14:42 HCG, Qual Negative <10 mIU/mL 10/22/22 19:20 Fluid pH 8.5 10/25/22 19:17 Fluid WBC Cancelled 10/25/22 19:17 Fluid RBC Cancelled 10/25/22 19:17 Fluid Polynuclear WBCs Cancelled 10/25/22 19:17 Fluid Comment Cancelled 10/25/22 19:17 Pleural Fluid Volume Cancelled 10/25/22 19:17 Pleural Color Cancelled 10/25/22 19:17 Pleural Appearance Cancelled 10/25/22 19:17 Pleural WBC Cancelled 10/25/22 19:17 Pleural RBC Cancelled 10/25/22 19:17 Pleural Monocytes Cancelled 10/25/22 19:17 Pleural Glucose 93 10/25/22 19:17 SARS-CoV-2 (PCR) Negative (NEGATIVE) 10/22/22 19:20 Influenza Type A (PCR) Negative (NEGATIVE) 10/22/22 19:20 Influenza Type B (PCR) Negative (NEGATIVE) 10/22/22 19:20 RSV (PCR) Negative (NEGATIVE) 10/22/22 19:20 Resp Viral Panel (PCR) See scanned report 10/23/22 16:28 Assessment and Plan 1: subsiding recurrent acute pancreatitis . on soft low fat diet . 2: pancreatic pseudocysts . expected to dissolve slowly . on IV ABT . 3: Lt pleural effusion, possible early pneumonia .s/p thoracentesis .. being observed with repeated Xray . on full liquid . OOB,DVT prophylaxis , incentive spirometer . awaiting fluid studies from paracentesis . D/W Pt and family in details including transfer . .Pt and family want to stay here and continue same plan .. added Duragesic patch . obtain pulmonary consult . scheduled for MRCP to evaluate the CBC and pancreatic ducts . Problem Patient Problems: Patient Problems (Updated 10/27/22 @ 15:15 by KENNY BENTON) Acute pancreatitis (Resolved) K85.90 Pleural effusion on left (Acute) J90 Pancreatic mass (Acute) K86.9
[2022-10-28] MEDS ORDERED: ZOFRAN INJ 4 MG VIAL IVP PRN (10:35)
[2022-10-28] MEDS: MARINOL PO SCH (12:08)
[2022-10-28] MEDS ORDERED: K-DUR TAB 20 MEQ PO PRN (13:19)
[2022-10-28] MEDS ORDERED: POTASSIUM CHLORIDE LIQ 20 MEQ UDC PO PRN (13:19)
[2022-10-28] MEDS ORDERED: POTASSIUM CHL 60 MEQ/NS 0.45% 500 ML IV PRN (13:19)
[2022-10-28] MEDS ORDERED: K-RIDER 10 MEQ/NS 100 ML 10 MEQ/100 ML BAG IV PRN (13:19)
[2022-10-28] MEDS ORDERED: KLOR-CON PO PRN (13:19)
[2022-10-28] MEDS ORDERED: MICRO K EXTEN CAP 10 MEQ PO PRN (13:19)
[2022-10-28] MEDS ORDERED: MAGNESIUM SULFATE 1 GRAM/100 mL PREMIX 1 G/100 ML BAG IV PRN (13:19)
[2022-10-28] MEDS ORDERED: POTASSIUM CHL 40 MEQ/NS 0.45% 500 ML IV PRN (13:19)
[2022-10-28 16:28] VITALS: BP 133/83; PULSE 110; TEMP 98.9; O2SAT 98
[2022-10-28] MEDS ORDERED: XANAX PO ONE (16:30)
[2022-10-28] MEDS ORDERED: XANAX ONE (16:31)
== END 2022-10-28 17:12 | disposition short-term general hospital (02) | DRG 438 ==
LOC: MED/SURG 18:36 → ER 18:36 → OBSVTOIN 10-23 01:08 → MED/SURG 10-23 01:30
PROVIDERS: ADMIT Family Medicine; ATTEND Family Medicine
DX: K85.90 Acute pancreatitis without necrosis or infection, unspecified; R79.82 Elevated C-reactive protein (CRP); E80.6 Other disorders of bilirubin metabolism; R11.2 Nausea with vomiting, unspecified; J13 Pneumonia due to Streptococcus pneumoniae; R06.02 Shortness of breath; Z20.822 Contact with and (suspected) exposure to COVID-19; J90 Pleural effusion, not elsewhere classified; R10.13 Epigastric pain; R70.0 Elevated erythrocyte sedimentation rate

== ENCOUNTER 2023-10-01 17:47 | Inpatient (IN) ==
[2023-10-01 18:06] VITALS: BMI 31.5
[2023-10-01] MEDS ORDERED: NS 1,000 ML IV 1,000 ML ONE ×2 (18:21→23:29)
[2023-10-01] MEDS: DILAUDID INJ IVP ONE ×2 (18:29→21:56)
[2023-10-01] MEDS: NS 1,000 ML IV 1,000 ML IV ONE (18:29)
[2023-10-01] MEDS: ZOFRAN INJ 4 MG VIAL IVP ONE ×2 (18:29→20:48)
[2023-10-01 18:52] LABS: BASOPHILS # (AUTO) 0.1 X10^3/uL (0.0-0.1); LYMPHOCYTES # (AUTO) 2.2 X10^3/uL (1.3-2.9); NEUTROPHILS % (AUTO) 65.4 % (42.0-75.0)
[2023-10-01 18:59] LABS: BASOPHILS % (AUTO) 1.1 % (0.2-1.0); EOSINOPHILS # (AUTO) 0.2 x10^3/uL (0.0-0.2); EOSINOPHILS % (AUTO) 1.7 % (0.9-2.9); HEMATOCRIT 39.9 % (36.0-47.0); HEMOGLOBIN 12.9 g/dL (12.0-16.0); LYMPHOCYTES % (AUTO) 19.7 % (21.0-51.0); MEAN CORPUSCULAR HEMOGLOBIN 27.2 pg (27.0-34.0); MEAN CORPUSCULAR HGB CONC 32.3 g/dL (33.0-35.0); MEAN CORPUSCULAR VOLUME 84.3 fL (80.0-100.0); MEAN PLATELET VOLUME 8.9 fL (7.4-11.0); MONOCYTES # (AUTO) 1.4 x10^3/uL (0.3-0.8); MONOCYTES % (AUTO) 12.1 % (0.0-13.0); NEUTROPHILS # (AUTO) 7.4 x10^3/uL (2.2-4.8); PLATELET COUNT 532 X10^3/uL (150.0-450.0); RED BLOOD COUNT 4.73 X10^6/uL (3.5-5.4); RED CELL DISTRIBUTION WIDTH 18.7 % (11.6-16.5); WHITE BLOOD COUNT 11.4 X10^3/uL (3.6-10.0)
[2023-10-01 19:03] LABS: ALANINE AMINOTRANSFERASE 33 Units/L (12-78); ALBUMIN 3.9 g/dL (3.4-5.0); ALKALINE PHOSPHATASE 122 Units/L (46-116); AMYLASE 262 Units/L (25-115); ASPARTATE AMINO TRANSFERASE 22 Units/L (15-37); BLOOD UREA NITROGEN 9 mg/dL (7-18); CALCIUM 9.1 mg/dL (8.5-10.1); CARBON DIOXIDE 28.2 mmol/L (21-32); CHLORIDE 105 mmol/L (98-107); CREATININE 0.81 mg/dL (0.55-1.02); GLUCOSE 81 mg/dL (65-99); POTASSIUM 3.7 mmol/L (3.5-5.1); SODIUM 140 mmol/L (136-145); TOTAL PROTEIN 7.5 g/dL (6.4-8.2); eGFR NON BLACK RACES > 60 (>60)
[2023-10-01 19:15] LABS: LIPASE 667 Units/L (16-77)
--- NOTE | 2023-10-01 19:36 | ED.ABDFE ---
HPI Time Seen Time Seen by Provider: 10/01/23 19:36 PCP Primary Care Physician: SRIRAM Aquino Complaint Chief Complaint:: Pt c/o intermittent nausea x 2 weeks. Pt states that 5 days ago she had a sudden onset of epigastric pain that radiates straight through to the back. Pain is a constant dull ache with intermittent sharp stabbing pain. Pain is worse with eating or drinking. Denies fever. Pt has had nausea but denies any vomiting. Pt denies diarrhea or constipation. Last BM was . Self Treatment fo Chief Complaint: Pt has taken Tylenol and Zofran at home with no improvement of symptoms. Pt has also been mindful of her diet and has avoided fried or greasy food as well as carbs. COVID-19 Coronavirus risk:travel/contact w/high risk person: No Has patient experienced Coronavirus symptoms: No Source History Provided: Patient Mode of arrival Mode of Arrival: Ambulatory Timing Onset of Chief Complaint: 09/27/23 PMH PMH Past Medical History: Yes Past Medical History: Migraines and GERD Past Medical History Comment: Chronic Pancreatitis, Pancreatic Tail Pseudocyst Past Surgical History: Yes Surgical History: Appendectomy, Cholecystectomy and Spleenectomy Past Surgical History Comment: D&C, Pancreatic Pseudocyst drain x 2, Pancreatic stent, Pancreatic tail removed, Family History History of Family Medical Conditions: Yes Family Medical History: Diabetes Mellitus Social History Does patient currently use any type of tobacco product: No Have you used tobacco products in the last 12 months: No Type of Tobacco Use: None Does any household member use tobacco: No Alcohol Use: None Do you use any recreational Drugs:: No Lives With: Spouse Lives Where: Home Travel Risk Coronavirus risk:travel/contact w/high risk person: No Has patient experienced Coronavirus symptoms: No Infectious screening In the last 2 months have you had wt loss of >10#?: NO Have you had fever, night sweats or hemotysis?: No Have you traveled outside the country in the last 6 months?: No Isolation: Standard PE Vital Signs Vitals: Vital Signs Temperature 97.8 F Pulse Rate 95 Respiratory Rate 20 Respiratory Rate 20 Respiratory Rate 20 Blood Pressure 148/78 O2 Sat by Pulse Oximetry 98 ROR Labs Reviewed 10/03/23 04:38 10/03/23 04:38 Laboratory: WBC 12.0 X10^3/uL (3.6-10.0) H 10/02/23 04:40 RBC 4.39 X10^6/uL (3.5-5.4) 10/02/23 04:40 Hgb 11.6 g/dL (12.0-16.0) L 10/02/23 04:40 Hct 36.7 % (36.0-47.0) 10/02/23 04:40 MCV 83.6 fL (80.0-100.0) 10/02/23 04:40 MCH 26.5 pg (27.0-34.0) L 10/02/23 04:40 MCHC 31.7 g/dL (33.0-35.0) L 10/02/23 04:40 RDW 18.5 % (11.6-16.5) H 10/02/23 04:40 Plt Count 506 X10^3/uL (150.0-450.0) H 10/02/23 04:40 MPV 8.6 fL (7.4-11.0) 10/02/23 04:40 Neut % (Auto) 65.7 % (42.0-75.0) 10/02/23 04:40 Lymph % (Auto) 20.6 % (21.0-51.0) L 10/02/23 04:40 [place] % (Auto) 12.0 % (0.0-13.0) 10/02/23 04:40 Eos % (Auto) 0.5 % (0.9-2.9) L 10/02/23 04:40 Baso % (Auto) 1.2 % (0.2-1.0) H 10/02/23 04:40 Neut # (Auto) 7.9 x10^3/uL (2.2-4.8) H 10/02/23 04:40 Lymph # (Auto) 2.5 X10^3/uL (1.3-2.9) 10/02/23 04:40 [place] # (Auto) 1.4 x10^3/uL (0.3-0.8) H 10/02/23 04:40 Eos # (Auto) 0.1 x10^3/uL (0.0-0.2) 10/02/23 04:40 Baso # (Auto) 0.1 X10^3/uL (0.0-0.1) 10/02/23 04:40 Absolute Nucleated RBC 0.2 /100WBC 10/02/23 04:40 Sodium 141 mmol/L (136-145) 10/02/23 04:40 Corrected Sodium TNP 10/02/23 04:40 Potassium 3.9 mmol/L (3.5-5.1) 10/02/23 04:40 Chloride 106 mmol/L (98-107) 10/02/23 04:40 Carbon Dioxide 27.3 mmol/L (21-32) 10/02/23 04:40 BUN 9 mg/dL (7-18) 10/02/23 04:40 Creatinine 0.78 mg/dL (0.55-1.02) 10/02/23 04:40 Est GFR (MDRD) Af Amer > 60 (>60) 10/02/23 04:40 Est GFR (MDRD) Non-Af > 60 (>60) 10/02/23 04:40 Glucose 83 mg/dL (65-99) 10/02/23 04:40 Hemoglobin A1c 6.0 % 10/02/23 04:40 Calcium 8.8 mg/dL (8.5-10.1) 10/02/23 04:40 Corrected Calcium TNP 10/02/23 04:40 Total Bilirubin 0.50 mg/dL (0.2-1.0) 10/02/23 04:40 AST 17 Units/L (15-37) 10/02/23 04:40 ALT 31 Units/L (12-78) 10/02/23 04:40 Alkaline Phosphatase 107 Units/L (46-116) 10/02/23 04:40 Total Protein 6.7 g/dL (6.4-8.2) 10/02/23 04:40 Albumin 3.4 g/dL (3.4-5.0) 10/02/23 04:40 Globulin 3.3 g/dL (2.5-4.5) 10/02/23 04:40 Albumin/Globulin Ratio 1.0 Ratio (1.1-2.1) L 10/02/23 04:40 Amylase 774 Units/L (25-115) H 10/02/23 04:40 Lipase 1719 Units/L (16-77) H 10/02/23 04:40 TSH 3rd Generation 1.170 uIU/mL (0.358-3.74) 10/02/23 04:40 Specimen Type Clean catch urine 10/02/23 02:20 Urine Color Dark yellow (YELLOW) 10/02/23 02:20 Urine Appearance Clear (CLEAR) 10/02/23 02:20 Urine pH 5.0 (5.0 - 8.0) 10/02/23 02:20 Ur Specific [place] 1.025 (1.000-1.030) 10/02/23 02:20 Urine Protein Negative (NEGATIVE) 10/02/23 02:20 Urine Glucose (UA) Negative (NEGATIVE) 10/02/23 02:20 Urine Ketones 3+ (NEGATIVE) 10/02/23 02:20 Urine Blood Negative (NEGATIVE) 10/02/23 02:20 Urine Nitrite Negative (NEGATIVE) 10/02/23 02:20 Urine Bilirubin Negative (NEGATIVE) 10/02/23 02:20 Urine Urobilinogen Normal (NORMAL) 10/02/23 02:20 Ur Leukocyte Esterase Negative (NEGATIVE) 10/02/23 02:20 Opioid Opioid Risk Tool Age (Royn box if 16-45): Yes History of Preadolescent Sexual Abuse: No Total: 1 Total Score Risk Category: Low Risk Copyright: Jese LAWS predicting aberrant behaviors Discharge Plan Discharge Plan Patient Disposition: 09 ADMITTED INPATIENT Condition: Stable
--- NOTE | 2023-10-01 20:22 | CT ---
EXAM:ABDCMEN/PELVIS WITH CONHISTORY:ABD PAIN, N/V; EMA, SPLEENECTOMY, TAIL OF PANCREAS REMOVED WITH STENT PLACEMENTCOMPARISON:06/07/2023.TECHNIQUE: imaging was performed through the abdomen and pelvis and axial, coronal, and sagittal CT images were generated.FINDINGS:The lung bases are clear without effusion. Heart size is normal. Liver is normal. The gallbladder has been removed. There appears to have been a resection of the tail of the pancreas. The inflammation near the pancreas and stomach has diminished significantly since the earlier study. There is some residual inflammation most pronounced in the lesser curvature of the stomach. Spleen is absent. The adrenal glands are grossly normal. Kidneys are normal in size and enhancement without mass, stone, or hydronephrosis. There is no abnormal dilation of the stomach. Small bowel loops are grossly unremarkable. Appendix has been removed. Large bowel loops are unremarkable. The urinary bladder and uterus are normal. There is a 1.8 cm simple cyst in the right ovary. There is no worrisome bone marrow lesion..IMPRESSION:1. There is residual versus recurrent inflammation near the pancreas but this is significantly improved compared to the earlier study.2. Simple right ovarian cyst.THIS IS AN ELECTRONICALLY VERIFIED FINAL REPORT10/01/2023 8:19 PM - Electronically signed by Darshan Nuñez MD
[2023-10-01] MEDS: ZOFRAN INJ 4 MG VIAL IVP PRN (23:41)
[2023-10-01] MEDS: NS 1,000 ML IV 1,000 ML IV SCH (23:41)
[2023-10-02 02:29] LABS: BILIRUBIN,URINE NEGATIVE (NEGATIVE); BLOOD/HEMOGLOBIN,URINE NEGATIVE (NEGATIVE); GLUCOSE, URINE NEGATIVE (NEGATIVE); KETONES,URINE 3+ (NEGATIVE); LEUKOCYTE ESTERASE ,URINE NEGATIVE (NEGATIVE); NITRITES,URINE NEGATIVE (NEGATIVE); PROTEIN,URINE NEGATIVE (NEGATIVE); UROBILINOGEN,URINE NORMAL (NORMAL)
[2023-10-02] MEDS: DILAUDID INJ IVP PRN (02:29)
[2023-10-02 02:37] LABS: APPEARANCE,URINE CLEAR (CLEAR); COLOR,URINE DARK YELLOW (YELLOW)
[2023-10-02 05:04] LABS: BASOPHILS # (AUTO) 0.1 X10^3/uL (0.0-0.1); BASOPHILS % (AUTO) 1.2 % (0.2-1.0); EOSINOPHILS # (AUTO) 0.1 x10^3/uL (0.0-0.2); EOSINOPHILS % (AUTO) 0.5 % (0.9-2.9); HEMATOCRIT 36.7 % (36.0-47.0); HEMOGLOBIN 11.6 g/dL (12.0-16.0); LYMPHOCYTES # (AUTO) 2.5 X10^3/uL (1.3-2.9); LYMPHOCYTES % (AUTO) 20.6 % (21.0-51.0); MEAN CORPUSCULAR HEMOGLOBIN 26.5 pg (27.0-34.0); MEAN CORPUSCULAR HGB CONC 31.7 g/dL (33.0-35.0); MEAN CORPUSCULAR VOLUME 83.6 fL (80.0-100.0); MEAN PLATELET VOLUME 8.6 fL (7.4-11.0); MONOCYTES # (AUTO) 1.4 x10^3/uL (0.3-0.8); NEUTROPHILS # (AUTO) 7.9 x10^3/uL (2.2-4.8); NEUTROPHILS % (AUTO) 65.7 % (42.0-75.0); PLATELET COUNT 506 X10^3/uL (150.0-450.0); RED BLOOD COUNT 4.39 X10^6/uL (3.5-5.4); RED CELL DISTRIBUTION WIDTH 18.5 % (11.6-16.5)
[2023-10-02 05:13] LABS: ALANINE AMINOTRANSFERASE 31 Units/L (12-78); ALBUMIN 3.4 g/dL (3.4-5.0); ALKALINE PHOSPHATASE 107 Units/L (46-116); ASPARTATE AMINO TRANSFERASE 17 Units/L (15-37); BLOOD UREA NITROGEN 9 mg/dL (7-18); CALCIUM 8.8 mg/dL (8.5-10.1); CARBON DIOXIDE 27.3 mmol/L (21-32); CHLORIDE 106 mmol/L (98-107); CREATININE 0.78 mg/dL (0.55-1.02); GLUCOSE 83 mg/dL (65-99); POTASSIUM 3.9 mmol/L (3.5-5.1); SODIUM 141 mmol/L (136-145); TOTAL PROTEIN 6.7 g/dL (6.4-8.2); eGFR NON BLACK RACES > 60 (>60)
[2023-10-02 05:34] LABS: AMYLASE 774 Units/L (25-115); LIPASE 1719 Units/L (16-77)
[2023-10-02 09:05] LABS: TSH (3RD GENERATION) 1.17 uIU/mL (0.358-3.74)
[2023-10-02] MEDS: DILAUDID INJ ONE (09:27)
[2023-10-02] MEDS: ZOFRAN INJ 4 MG VIAL ONE (09:27)
[2023-10-02] MEDS: PROTONIX INJ 40 MG VIAL IVP SCH ×2 (10:29→21:55)
[2023-10-02] MEDS: BENTYL I.M. INJ 10 MG IM PRN (11:02)
[2023-10-02] MEDS: BENADRYL INJ 50 MG VIAL IV PRN (15:55)
--- NOTE | 2023-10-02 18:34 | DR.H&P ---
H&P History & Physical for Day of: H&P Date: 10/01/23 Chief Complaint Chief Complaint: ABDOMINAL PAIN, N/V Allergies Allergies Allergy/AdvReac Type Severity Reaction Status Date / Time ketorolac [From Toradol] Allergy Severe RASH Verified 10/01/23 18:06 levofloxacin [From Levaquin] Allergy Verified 10/01/23 18:06 meropenem [From Merrem] Allergy Verified 10/01/23 18:06 piperacillin [From Zosyn] Allergy Verified 10/01/23 18:06 tazobactam [From Zosyn] Allergy Verified 10/01/23 18:06 History of Present Illness History of Present Illness: Pt c/o intermittent nausea x 2 weeks. Pt states that 5 days ago she had a sudden onset of epigastric pain that radiates straight through to the back. Pain is a constant dull ache with intermittent sharp stabbing pain. Pain is worse with eating or drinking. Denies fever. Pt has had nausea but denies any vomiting. Pt denies diarrhea or constipation. Last BM was . 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 and Spleenectomy Family History Family Medical History: Diabetes Mellitus, [place], Coronary Artery Disease and Hypertension Social History Does patient currently use any type of tobacco product: No Have you used tobacco products in the last 12 months: No Type of Tobacco Use: None Does any household member use tobacco: No Alcohol Use: None Drug Use: None Medications Home Medications: Home Medications Medication Instructions Recorded Confirmed Type ondansetron 4 mg disintegrating 4 mg PO Q8H PRN 06/07/23 10/01/23 History tablet pantoprazole 40 mg tablet,delayed 40 mg PO QDAY 06/07/23 10/01/23 History release Labs 10/02/23 04:40 10/02/23 04:40 Labs: Laboratory WBC 12.0 X10^3/uL (3.6-10.0) H 10/02/23 04:40 RBC 4.39 X10^6/uL (3.5-5.4) 10/02/23 04:40 Hgb 11.6 g/dL (12.0-16.0) L 10/02/23 04:40 Hct 36.7 % (36.0-47.0) 10/02/23 04:40 MCV 83.6 fL (80.0-100.0) 10/02/23 04:40 MCH 26.5 pg (27.0-34.0) L 10/02/23 04:40 MCHC 31.7 g/dL (33.0-35.0) L 10/02/23 04:40 RDW 18.5 % (11.6-16.5) H 10/02/23 04:40 Plt Count 506 X10^3/uL (150.0-450.0) H 10/02/23 04:40 MPV 8.6 fL (7.4-11.0) 10/02/23 04:40 Neut % (Auto) 65.7 % (42.0-75.0) 10/02/23 04:40 Lymph % (Auto) 20.6 % (21.0-51.0) L 10/02/23 04:40 [place] % (Auto) 12.0 % (0.0-13.0) 10/02/23 04:40 Eos % (Auto) 0.5 % (0.9-2.9) L 10/02/23 04:40 Baso % (Auto) 1.2 % (0.2-1.0) H 10/02/23 04:40 Neut # (Auto) 7.9 x10^3/uL (2.2-4.8) H 10/02/23 04:40 Lymph # (Auto) 2.5 X10^3/uL (1.3-2.9) 10/02/23 04:40 [place] # (Auto) 1.4 x10^3/uL (0.3-0.8) H 10/02/23 04:40 Eos # (Auto) 0.1 x10^3/uL (0.0-0.2) 10/02/23 04:40 Baso # (Auto) 0.1 X10^3/uL (0.0-0.1) 10/02/23 04:40 Absolute Nucleated RBC 0.2 /100WBC 10/02/23 04:40 Sodium 141 mmol/L (136-145) 10/02/23 04:40 Corrected Sodium TNP 10/02/23 04:40 Potassium 3.9 mmol/L (3.5-5.1) 10/02/23 04:40 Chloride 106 mmol/L (98-107) 10/02/23 04:40 Carbon Dioxide 27.3 mmol/L (21-32) 10/02/23 04:40 BUN 9 mg/dL (7-18) 10/02/23 04:40 Creatinine 0.78 mg/dL (0.55-1.02) 10/02/23 04:40 Est GFR (MDRD) Af Amer > 60 (>60) 10/02/23 04:40 Est GFR (MDRD) Non-Af > 60 (>60) 10/02/23 04:40 Glucose 83 mg/dL (65-99) 10/02/23 04:40 Hemoglobin A1c 6.0 % 10/02/23 04:40 Calcium 8.8 mg/dL (8.5-10.1) 10/02/23 04:40 Corrected Calcium TNP 10/02/23 04:40 Total Bilirubin 0.50 mg/dL (0.2-1.0) 10/02/23 04:40 AST 17 Units/L (15-37) 10/02/23 04:40 ALT 31 Units/L (12-78) 10/02/23 04:40 Alkaline Phosphatase 107 Units/L (46-116) 10/02/23 04:40 Total Protein 6.7 g/dL (6.4-8.2) 10/02/23 04:40 Albumin 3.4 g/dL (3.4-5.0) 10/02/23 04:40 Globulin 3.3 g/dL (2.5-4.5) 10/02/23 04:40 Albumin/Globulin Ratio 1.0 Ratio (1.1-2.1) L 10/02/23 04:40 Amylase 774 Units/L (25-115) H 10/02/23 04:40 Lipase 1719 Units/L (16-77) H 10/02/23 04:40 TSH 3rd Generation 1.170 uIU/mL (0.358-3.74) 10/02/23 04:40 Specimen Type Clean catch urine 10/02/23 02:20 Urine Color Dark yellow (YELLOW) 10/02/23 02:20 Urine Appearance Clear (CLEAR) 10/02/23 02:20 Urine pH 5.0 (5.0 - 8.0) 10/02/23 02:20 Ur Specific [place] 1.025 (1.000-1.030) 10/02/23 02:20 Urine Protein Negative (NEGATIVE) 10/02/23 02:20 Urine Glucose (UA) Negative (NEGATIVE) 10/02/23 02:20 Urine Ketones 3+ (NEGATIVE) 10/02/23 02:20 Urine Blood Negative (NEGATIVE) 10/02/23 02:20 Urine Nitrite Negative (NEGATIVE) 10/02/23 02:20 Urine Bilirubin Negative (NEGATIVE) 10/02/23 02:20 Urine Urobilinogen Normal (NORMAL) 10/02/23 02:20 Ur Leukocyte Esterase Negative (NEGATIVE) 10/02/23 02:20 Review of Systems Constitutional: Weakness Eyes: No Symptoms Reported ENT: No Symptoms Reported Respiratory: No Symptoms Reported Cardiovascular: No Symptoms Reported Gastrointestinal: Nausea, Vomiting and Abdominal Pain Genitourinary: No Symptoms Reported Musculoskeletal: Back Pain Skin: No Symptoms Reported Neurological: No Symptoms Reported Physical Exam Vital Signs: Vital Signs Temperature 98.3 F Temperature 98.3 F Temperature 98.3 F Pulse Rate 102 Pulse Rate 102 Pulse Rate 95 Respiratory Rate 20 Blood Pressure 130/80 Blood Pressure 130/80 Blood Pressure 125/70 Blood Pressure 125/70 Blood Pressure 125/70 O2 Sat by Pulse Oximetry 100 O2 Sat by Pulse Oximetry 100 O2 Sat by Pulse Oximetry 100 Oriented: Normal Eyes: Normal Ear: Normal Nose: Normal Throat: Dry Respiratory: RLL Diminished and LLL Diminished Cardiovascular: Normal : Normal Auscultation: Bowel Sounds: Decreased Palpation: negative Spleen Enlarged (SURGICALLY REMOVED) Tenderness: LUQ and Epigastric Skin: Decreased [place] Musculoskeletal: Normal Psychiatric: Normal Speech Pattern: Clear Assessment/Plan (1) Pancreatitis: Narrative Support Text: ADMIT, NPO IV HYDRATION, PAIN AND NAUSEA CONTROL PPI THERAPY VERIFY HOME MEDICATIONS REPEAT AM AMYLASE AND LIPASE Status: Acute (2) Abdominal pain: Status: Acute (3) Nausea and vomiting: Status: Acute
[2023-10-02] MEDS: TYLENOL 325 MG TAB PO PRN (19:42)
[2023-10-02] MEDS: COLACE CAP 100 MG PO PRN (22:19)
[2023-10-03 05:14] LABS: BASOPHILS # (AUTO) 0.2 X10^3/uL (0.0-0.1); BASOPHILS % (AUTO) 1.7 % (0.2-1.0); EOSINOPHILS # (AUTO) 0.1 x10^3/uL (0.0-0.2); EOSINOPHILS % (AUTO) 0.8 % (0.9-2.9); HEMATOCRIT 34.2 % (36.0-47.0); HEMOGLOBIN 11.1 g/dL (12.0-16.0); LYMPHOCYTES # (AUTO) 2.7 X10^3/uL (1.3-2.9); LYMPHOCYTES % (AUTO) 29.4 % (21.0-51.0); MEAN CORPUSCULAR HEMOGLOBIN 27.4 pg (27.0-34.0); MEAN CORPUSCULAR HGB CONC 32.6 g/dL (33.0-35.0); MEAN CORPUSCULAR VOLUME 84.1 fL (80.0-100.0); MEAN PLATELET VOLUME 8.9 fL (7.4-11.0); MONOCYTES # (AUTO) 1.3 x10^3/uL (0.3-0.8); MONOCYTES % (AUTO) 14.9 % (0.0-13.0); NEUTROPHILS # (AUTO) 4.8 x10^3/uL (2.2-4.8); NEUTROPHILS % (AUTO) 53.2 % (42.0-75.0); PLATELET COUNT 460 X10^3/uL (150.0-450.0); RED BLOOD COUNT 4.06 X10^6/uL (3.5-5.4); RED CELL DISTRIBUTION WIDTH 18.5 % (11.6-16.5)
[2023-10-03 05:20] LABS: ALANINE AMINOTRANSFERASE 28 Units/L (12-78); ALKALINE PHOSPHATASE 104 Units/L (46-116); ASPARTATE AMINO TRANSFERASE 18 Units/L (15-37); BLOOD UREA NITROGEN 7 mg/dL (7-18); CALCIUM 8.5 mg/dL (8.5-10.1); CARBON DIOXIDE 24.4 mmol/L (21-32); CHLORIDE 105 mmol/L (98-107); COR CA(FOR HYPOALB) 9.3 mg/dL (8.5-10.1); CREATININE 0.67 mg/dL (0.55-1.02); GLUCOSE 69 mg/dL (65-99); POTASSIUM 3.8 mmol/L (3.5-5.1); SODIUM 139 mmol/L (136-145); TOTAL PROTEIN 6.3 g/dL (6.4-8.2); eGFR NON BLACK RACES > 60 (>60)
[2023-10-03 05:52] LABS: ANISOCYTOSIS SLIGHT; BURR CELLS SLIGHT; GIANT PLATELET FEW; HOWELL-JOLLY BODIES SLIGHT; PLATELET MORPHOLOGY COMMENT NORMAL (NORMAL); POIKILOCYTOSIS 1+; SCHISTOCYTES 1+; TARGET CELLS 1+
[2023-10-03 05:55] LABS: MAGNESIUM 1.9 mg/dL (2.0-2.9)
[2023-10-03] MEDS ORDERED: CONSULT PHARMACY - POTASSIUM & MAGNESIUM XX SCH (06:00)
[2023-10-03] MEDS: MAG-OX TAB PO SCH (08:20)
[2023-10-03] MEDS: K-DUR TAB 20 MEQ PO SCH (08:21)
--- NOTE | 2023-10-03 10:21 | DR.PROGNOT ---
HOSPITAL PROGRESS NOTE Progress Note for Day of: Progress Note Date: 10/03/23 Chief Complaint Chief Complaint: Upper abdominal pain with some nausea and poor appetite, no vomiting. Lab work showed improvement of pancreatic enzymes and normal liver function tests.. Past Medical Family Social History Past Med/Fam/Surg Hx: No changes since H&P Allergies: Allergies ketorolac [From Toradol] Allergy (Severe, Verified 10/01/23 18:06) RASH pt states that toradol causes a severe reddened, raised rash levofloxacin [From Levaquin] Allergy (Verified 10/01/23 18:06) meropenem [From Merrem] Allergy (Verified 10/01/23 18:06) piperacillin [From Zosyn] Allergy (Verified 10/01/23 18:06) tazobactam [From Zosyn] Allergy (Verified 10/01/23 18:06) Vital Signs Vital Signs: Vital Signs Temperature 98.9 F Temperature 98.6 F Pulse Rate 70 Pulse Rate 67 Respiratory Rate 25 Respiratory Rate 20 Respiratory Rate 16 Respiratory Rate 16 Blood Pressure 115/79 Blood Pressure 111/72 O2 Sat by Pulse Oximetry 100 O2 Sat by Pulse Oximetry 100 Physical Exam Oriented: Normal Eyes: Normal Ear: Normal Nose: Normal Throat: Dry Cardiovascular: Normal : Normal GI:Auscultation: Decreased GI:Palpation: negative Spleen Enlarged (SURGICALLY REMOVED) GI: Tenderness: LUQ, Epigastric and Other (Soft and flat abdomen with diffuse upper abdominal tenderness, bowel sounds hypoactive.) Skin: Decreased [place]urgur Musculoskeletal: Normal Psychiatric: Normal Speech Pattern: Clear and Appropriate Laboratory and Diagnostics 10/03/23 04:38 10/03/23 04:38 Labs: Laboratory WBC 9.0 X10^3/uL (3.6-10.0) 10/03/23 04:38 RBC 4.06 X10^6/uL (3.5-5.4) 10/03/23 04:38 Hgb 11.1 g/dL (12.0-16.0) L 10/03/23 04:38 Hct 34.2 % (36.0-47.0) L 10/03/23 04:38 MCV 84.1 fL (80.0-100.0) 10/03/23 04:38 MCH 27.4 pg (27.0-34.0) 10/03/23 04:38 MCHC 32.6 g/dL (33.0-35.0) L 10/03/23 04:38 RDW 18.5 % (11.6-16.5) H 10/03/23 04:38 Plt Count 460 X10^3/uL (150.0-450.0) H 10/03/23 04:38 Plt Count Comment Increased (ADEQUATE) A 10/03/23 04:38 MPV 8.9 fL (7.4-11.0) 10/03/23 04:38 Neut % (Auto) 53.2 % (42.0-75.0) 10/03/23 04:38 Lymph % (Auto) 29.4 % (21.0-51.0) 10/03/23 04:38 [place] % (Auto) 14.9 % (0.0-13.0) H 10/03/23 04:38 Eos % (Auto) 0.8 % (0.9-2.9) L 10/03/23 04:38 Baso % (Auto) 1.7 % (0.2-1.0) H 10/03/23 04:38 Neut # (Auto) 4.8 x10^3/uL (2.2-4.8) 10/03/23 04:38 Lymph # (Auto) 2.7 X10^3/uL (1.3-2.9) 10/03/23 04:38 [place] # (Auto) 1.3 x10^3/uL (0.3-0.8) H 10/03/23 04:38 Eos # (Auto) 0.1 x10^3/uL (0.0-0.2) 10/03/23 04:38 Baso # (Auto) 0.2 X10^3/uL (0.0-0.1) H 10/03/23 04:38 Absolute Nucleated RBC 0.1 /100WBC 10/03/23 04:38 Giant Platelets Few 10/03/23 04:38 Plt Morphology Comment Normal (NORMAL) 10/03/23 04:38 RBC Morphology Abnormal (NORMAL) A 10/03/23 04:38 Poikilocytosis 1+ A 10/03/23 04:38 Anisocytosis Slight A 10/03/23 04:38 Target Cells 1+ A 10/03/23 04:38 [place] Bodies Slight A 10/03/23 04:38 [place]andra Cells Slight A 10/03/23 04:38 Schistocytes 1+ A 10/03/23 04:38 Sodium 139 mmol/L (136-145) 10/03/23 04:38 Corrected Sodium TNP 10/03/23 04:38 Potassium 3.8 mmol/L (3.5-5.1) 10/03/23 04:38 Chloride 105 mmol/L (98-107) 10/03/23 04:38 Carbon Dioxide 24.4 mmol/L (21-32) 10/03/23 04:38 BUN 7 mg/dL (7-18) 10/03/23 04:38 Creatinine 0.67 mg/dL (0.55-1.02) 10/03/23 04:38 Est GFR (MDRD) Af Amer > 60 (>60) 10/03/23 04:38 Est GFR (MDRD) Non-Af > 60 (>60) 10/03/23 04:38 Glucose 69 mg/dL (65-99) 10/03/23 04:38 Hemoglobin A1c 6.0 % 10/02/23 04:40 Calcium 8.5 mg/dL (8.5-10.1) 10/03/23 04:38 Corrected Calcium 9.3 mg/dL (8.5-10.1) 10/03/23 04:38 Magnesium 1.9 mg/dL (2.0-2.9) L 10/03/23 04:38 Total Bilirubin 0.50 mg/dL (0.2-1.0) 10/03/23 04:38 AST 18 Units/L (15-37) 10/03/23 04:38 ALT 28 Units/L (12-78) 10/03/23 04:38 Alkaline Phosphatase 104 Units/L (46-116) 10/03/23 04:38 Total Protein 6.3 g/dL (6.4-8.2) L 10/03/23 04:38 Albumin 3.0 g/dL (3.4-5.0) L 10/03/23 04:38 Globulin 3.3 g/dL (2.5-4.5) 10/03/23 04:38 Albumin/Globulin Ratio 0.9 Ratio (1.1-2.1) L 10/03/23 04:38 Amylase 216 Units/L (25-115) H 10/03/23 04:38 Lipase 192 Units/L (16-77) H 10/03/23 04:38 TSH 3rd Generation 1.170 uIU/mL (0.358-3.74) 10/02/23 04:40 Specimen Type Clean catch urine 10/02/23 02:20 Urine Color Dark yellow (YELLOW) 10/02/23 02:20 Urine Appearance Clear (CLEAR) 10/02/23 02:20 Urine pH 5.0 (5.0 - 8.0) 10/02/23 02:20 Ur Specific Maxwell 1.025 (1.000-1.030) 10/02/23 02:20 Urine Protein Negative (NEGATIVE) 10/02/23 02:20 Urine Glucose (UA) Negative (NEGATIVE) 10/02/23 02:20 Urine Ketones 3+ (NEGATIVE) 10/02/23 02:20 Urine Blood Negative (NEGATIVE) 10/02/23 02:20 Urine Nitrite Negative (NEGATIVE) 10/02/23 02:20 Urine Bilirubin Negative (NEGATIVE) 10/02/23 02:20 Urine Urobilinogen Normal (NORMAL) 10/02/23 02:20 Ur Leukocyte Esterase Negative (NEGATIVE) 10/02/23 02:20 Assessment and Plan 1: Resolving recurrent pancreatitis. To advance diet, same IV fluid and medications. 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
[2023-10-03] MEDS: BENTYL CAP 10 MG PO SCH (10:30)
[2023-10-03] MEDS: PHENERGAN TAB 25 MG PO PRN (22:34)
[2023-10-04 05:36] LABS: BASOPHILS # (AUTO) 0.2 X10^3/uL (0.0-0.1); BASOPHILS % (AUTO) 1.8 % (0.2-1.0); EOSINOPHILS # (AUTO) 0.2 x10^3/uL (0.0-0.2); EOSINOPHILS % (AUTO) 2.8 % (0.9-2.9); HEMATOCRIT 33.6 % (36.0-47.0); LYMPHOCYTES # (AUTO) 2.3 X10^3/uL (1.3-2.9); LYMPHOCYTES % (AUTO) 26.3 % (21.0-51.0); MEAN CORPUSCULAR HEMOGLOBIN 27.4 pg (27.0-34.0); MEAN CORPUSCULAR HGB CONC 32.7 g/dL (33.0-35.0); MEAN CORPUSCULAR VOLUME 83.8 fL (80.0-100.0); MEAN PLATELET VOLUME 9.4 fL (7.4-11.0); MONOCYTES # (AUTO) 1.7 x10^3/uL (0.3-0.8); MONOCYTES % (AUTO) 19.7 % (0.0-13.0); NEUTROPHILS # (AUTO) 4.2 x10^3/uL (2.2-4.8); NEUTROPHILS % (AUTO) 49.4 % (42.0-75.0); PLATELET COUNT 459 X10^3/uL (150.0-450.0); RED CELL DISTRIBUTION WIDTH 18.5 % (11.6-16.5); WHITE BLOOD COUNT 8.5 X10^3/uL (3.6-10.0)
[2023-10-04 05:39] LABS: ALANINE AMINOTRANSFERASE 24 Units/L (12-78); ALBUMIN 3.1 g/dL (3.4-5.0); ALKALINE PHOSPHATASE 97 Units/L (46-116); ASPARTATE AMINO TRANSFERASE 15 Units/L (15-37); BLOOD UREA NITROGEN 8 mg/dL (7-18); CALCIUM 8.7 mg/dL (8.5-10.1); CARBON DIOXIDE 26.7 mmol/L (21-32); CHLORIDE 107 mmol/L (98-107); COR CA(FOR HYPOALB) 9.4 mg/dL (8.5-10.1); GLUCOSE 76 mg/dL (65-99); MAGNESIUM 2.1 mg/dL (2.0-2.9); SODIUM 141 mmol/L (136-145); TOTAL PROTEIN 6.3 g/dL (6.4-8.2); eGFR NON BLACK RACES > 60 (>60)
[2023-10-04] MEDS ORDERED: NORCO 5/325 MG TAB PO PRN (07:35)
[2023-10-04 08:30] VITALS: BP 105/64; PULSE 56; RESP 20; TEMP 98.4; O2SAT 96
--- NOTE | 2023-10-04 09:41 | DR.PROGNOT ---
HOSPITAL PROGRESS NOTE Progress Note for Day of: Progress Note Date: 10/04/23 Chief Complaint Chief Complaint: Still having abdominal pain localized to the upper abdomen with mild to moderate nausea and food intolerance. WBC 8.5, serum amylase is 70 which is normal today, lipase is was 192 yesterday. Liver function tests are normal. Past Medical Family Social History Past Med/Fam/Surg Hx: No changes since H&P Allergies: Allergies ketorolac [From Toradol] Allergy (Severe, Verified 10/01/23 18:06) RASH pt states that toradol causes a severe reddened, raised rash levofloxacin [From Levaquin] Allergy (Verified 10/01/23 18:06) meropenem [From Merrem] Allergy (Verified 10/01/23 18:06) piperacillin [From Zosyn] Allergy (Verified 10/01/23 18:06) tazobactam [From Zosyn] Allergy (Verified 10/01/23 18:06) Review Of Systems ROS: No change since H&P Vital Signs Vital Signs: Vital Signs Temperature 98.4 F Temperature 98.2 F Pulse Rate 56 Pulse Rate 52 Respiratory Rate 20 Respiratory Rate 17 Blood Pressure 105/64 Blood Pressure 116/68 O2 Sat by Pulse Oximetry 96 O2 Sat by Pulse Oximetry 98 Physical Exam Oriented: Normal Eyes: Normal Ear: Normal Nose: Normal Throat: Dry Cardiovascular: Normal : Normal GI:Auscultation: Decreased GI:Palpation: negative Spleen Enlarged (SURGICALLY REMOVED) GI: Tenderness: Other (Soft and flat abdomen with moderate epigastric tenderness, no rebound or rigidity.) Skin: Decreased Turgur Musculoskeletal: Normal Psychiatric: Normal Speech Pattern: Clear and Appropriate Laboratory and Diagnostics 10/04/23 04:24 10/04/23 04:24 Labs: Laboratory WBC 8.5 X10^3/uL (3.6-10.0) 10/04/23 04: RBC 4.00 X10^6/uL (3.5-5.4) 10/04/23 04:24 Hgb 11.0 g/dL (12.0-16.0) L 10/04/23 04:24 Hct 33.6 % (36.0-47.0) L 10/04/23 04:24 MCV 83.8 fL (80.0-100.0) 10/04/23 04:24 MCH 27.4 pg (27.0-34.0) 10/04/23 04:24 MCHC 32.7 g/dL (33.0-35.0) L 10/04/23 04:24 RDW 18.5 % (11.6-16.5) H 10/04/23 04:24 Plt Count 459 X10^3/uL (150.0-450.0) H 10/04/23 04:24 Plt Count Comment Increased (ADEQUATE) A 10/03/23 04:38 MPV 9.4 fL (7.4-11.0) 10/04/23 04:24 Neut % (Auto) 49.4 % (42.0-75.0) 10/04/23 04:24 Lymph % (Auto) 26.3 % (21.0-51.0) 10/04/23 04:24 [place] % (Auto) 19.7 % (0.0-13.0) H 10/04/23 04:24 Eos % (Auto) 2.8 % (0.9-2.9) 10/04/23 04:24 Baso % (Auto) 1.8 % (0.2-1.0) H 10/04/23 04:24 Neut # (Auto) 4.2 x10^3/uL (2.2-4.8) 10/04/23 04:24 Lymph # (Auto) 2.3 X10^3/uL (1.3-2.9) 10/04/23 04:24 [place] # (Auto) 1.7 x10^3/uL (0.3-0.8) H 10/04/23 04:24 Eos # (Auto) 0.2 x10^3/uL (0.0-0.2) 10/04/23 04:24 Baso # (Auto) 0.2 X10^3/uL (0.0-0.1) H 10/04/23 04:24 Absolute Nucleated RBC 0.1 /100WBC 10/04/23 04:24 Giant Platelets Few 10/03/23 04:38 Plt Morphology Comment Normal (NORMAL) 10/03/23 04:38 RBC Morphology Abnormal (NORMAL) A 10/03/23 04:38 Poikilocytosis 1+ A 10/03/23 04:38 Anisocytosis Slight A 10/03/23 04:38 Target Cells 1+ A 10/03/23 04:38 [place] Bodies Slight A 10/03/23 04:38 [place] Cells Slight A 10/03/23 04:38 Schistocytes 1+ A 10/03/23 04:38 Sodium 141 mmol/L (136-145) 10/04/23 04:24 Corrected Sodium TNP 10/04/23 04:24 Potassium 4.0 mmol/L (3.5-5.1) 10/04/23 04:24 Chloride 107 mmol/L (98-107) 10/04/23 04:24 Carbon Dioxide 26.7 mmol/L (21-32) 10/04/23 04:24 BUN 8 mg/dL (7-18) 10/04/23 04:24 Creatinine 0.80 mg/dL (0.55-1.02) 10/04/23 04:24 Est GFR (MDRD) Af Amer > 60 (>60) 10/04/23 04:24 Est GFR (MDRD) Non-Af > 60 (>60) 10/04/23 04:24 Glucose 76 mg/dL (65-99) 10/04/23 04:24 Hemoglobin A1c 6.0 % 10/02/23 04:40 Calcium 8.7 mg/dL (8.5-10.1) 10/04/23 04:24 Corrected Calcium 9.4 mg/dL (8.5-10.1) 10/04/23 04:24 Magnesium 2.1 mg/dL (2.0-2.9) 10/04/23 04:24 Total Bilirubin 0.30 mg/dL (0.2-1.0) 10/04/23 04:24 AST 15 Units/L (15-37) 10/04/23 04:24 ALT 24 Units/L (12-78) 10/04/23 04:24 Alkaline Phosphatase 97 Units/L (46-116) 10/04/23 04:24 Total Protein 6.3 g/dL (6.4-8.2) L 10/04/23 04:24 Albumin 3.1 g/dL (3.4-5.0) L 10/04/23 04:24 Globulin 3.2 g/dL (2.5-4.5) 10/04/23 04:24 Albumin/Globulin Ratio 1.0 Ratio (1.1-2.1) L 10/04/23 04:24 Amylase 70 Units/L (25-115) 10/04/23 04:24 Lipase 192 Units/L (16-77) H 10/03/23 04:38 TSH 3rd Generation 1.170 uIU/mL (0.358-3.74) 10/02/23 04:40 Specimen Type Clean catch urine 10/02/23 02:20 Urine Color Dark yellow (YELLOW) 10/02/23 02:20 Urine Appearance Clear (CLEAR) 10/02/23 02:20 Urine pH 5.0 (5.0 - 8.0) 10/02/23 02:20 Ur Specific [place] 1.025 (1.000-1.030) 10/02/23 02:20 Urine Protein Negative (NEGATIVE) 10/02/23 02:20 Urine Glucose (UA) Negative (NEGATIVE) 10/02/23 02:20 Urine Ketones 3+ (NEGATIVE) 10/02/23 02:20 Urine Blood Negative (NEGATIVE) 10/02/23 02:20 Urine Nitrite Negative (NEGATIVE) 10/02/23 02:20 Urine Bilirubin Negative (NEGATIVE) 10/02/23 02:20 Urine Urobilinogen Normal (NORMAL) 10/02/23 02:20 Ur Leukocyte Esterase Negative (NEGATIVE) 10/02/23 02:20 Assessment and Plan 1: Resolving recurrent pancreatitis. Normal pancreatic enzymes today. To advance diet, same IV fluid and medications. Will follow as an outpatient as needed. 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
--- NOTE | 2023-10-05 11:53 | PCM.PROG ---
Progress Note Progress Note for Day of Date of Exam: 10/02/23 Subjective Subjective: This is a 33-year-old white female admitted with pancreatitis. The patient has a history of pancreatitis in the past with subsequent development of pancreatic pseudocyst and pleural effusion requiring thoracentesis. Subsequently the patient underwent distal pancreatectomy and splenectomy. The patient developed complications with the surgery with pancreatic leak and required ERCP and drainage of pancreatic duct. After that, her CAT scan was read as normal and the patient was doing well until this episode of pancreatitis. AM labs: wbc 12.0, hgb 11.6, BUN 9/creatinine 0.78, amylase 774, lipase 1719. Yesterday's amylase was 262 and lipase was 175. Past Medical Family Social History Past Med/Fam/Surg Hx: No changes since H&P Allergies: Allergies ketorolac [From Toradol] Allergy (Severe, Verified 10/01/23 18:06) RASH pt states that toradol causes a severe reddened, raised rash levofloxacin [From Levaquin] Allergy (Verified 10/01/23 18:06) meropenem [From Merrem] Allergy (Verified 10/01/23 18:06) piperacillin [From Zosyn] Allergy (Verified 10/01/23 18:06) tazobactam [From Zosyn] Allergy (Verified 10/01/23 18:06) Review of Systems ROS: No change since H&P Vital Signs and I&O's Intake and Output: Intake & Output 10/02/23 10/03/23 10/04/23 10/05/23 11:59 11:59 11:59 11:59 Intake Total 682 / 682 3129 / 3129 3078 / 3078 Balance 682 / 682 3129 / 3129 3078 / 3078 Physical Exam Oriented: Normal Eyes: Normal Ear: Normal Nose: Normal Throat: Dry Cardiovascular: Normal : Normal Auscultation: Bowel Sounds: Decreased Tenderness: Other (Soft and flat abdomen with moderate epigastric tenderness, no rebound or rigidity.) Skin: Decreased Turgur Musculoskeletal: Normal Psychiatric: Normal Speech Pattern: Clear and Appropriate Laboratory and Diagnostics 10/04/23 04:24 10/04/23 04:24 Labs: Laboratory WBC 8.5 X10^3/uL (3.6-10.0) 10/04/23 04:24 RBC 4.00 X10^6/uL (3.5-5.4) 10/04/23 04:24 Hgb 11.0 g/dL (12.0-16.0) L 10/04/23 04:24 Hct 33.6 % (36.0-47.0) L 10/04/23 04:24 MCV 83.8 fL (80.0-100.0) 10/04/23 04:24 MCH 27.4 pg (27.0-34.0) 10/04/23 04:24 MCHC 32.7 g/dL (33.0-35.0) L 10/04/23 04:24 RDW 18.5 % (11.6-16.5) H 10/04/23 04:24 Plt Count 459 X10^3/uL (150.0-450.0) H 10/04/23 04:24 Plt Count Comment Increased (ADEQUATE) A 10/03/23 04:38 MPV 9.4 fL (7.4-11.0) 10/04/23 04:24 Neut % (Auto) 49.4 % (42.0-75.0) 10/04/23 04:24 Lymph % (Auto) 26.3 % (21.0-51.0) 10/04/23 04:24 [place] % (Auto) 19.7 % (0.0-13.0) H 10/04/23 04:24 Eos % (Auto) 2.8 % (0.9-2.9) 10/04/23 04:24 Baso % (Auto) 1.8 % (0.2-1.0) H 10/04/23 04:24 Neut # (Auto) 4.2 x10^3/uL (2.2-4.8) 10/04/23 04:24 Lymph # (Auto) 2.3 X10^3/uL (1.3-2.9) 10/04/23 04:24 [place] # (Auto) 1.7 x10^3/uL (0.3-0.8) H 10/04/23 04:24 Eos # (Auto) 0.2 x10^3/uL (0.0-0.2) 10/04/23 04:24 Baso # (Auto) 0.2 X10^3/uL (0.0-0.1) H 10/04/23 04:24 Absolute Nucleated RBC 0.1 /100WBC 10/04/23 04:24 Giant Platelets Few 10/03/23 04:38 Plt Morphology Comment Normal (NORMAL) 10/03/23 04:38 RBC Morphology Abnormal (NORMAL) A 10/03/23 04:38 Poikilocytosis 1+ A 10/03/23 04:38 Anisocytosis Slight A 10/03/23 04:38 Target Cells 1+ A 10/03/23 04:38 [place] Bodies Slight A 10/03/23 04:38 [place] Cells Slight A 10/03/23 04:38 Schistocytes 1+ A 10/03/23 04:38 Sodium 141 mmol/L (136-145) 10/04/23 04:24 Corrected Sodium TNP 10/04/23 04:24 Potassium 4.0 mmol/L (3.5-5.1) 10/04/23 04:24 Chloride 107 mmol/L (98-107) 10/04/23 04:24 Carbon Dioxide 26.7 mmol/L (21-32) 10/04/23 04:24 BUN 8 mg/dL (7-18) 10/04/23 04:24 Creatinine 0.80 mg/dL (0.55-1.02) 10/04/23 04:24 Est GFR (MDRD) Af Amer > 60 (>60) 10/04/23 04:24 Est GFR (MDRD) Non-Af > 60 (>60) 10/04/23 04:24 Glucose 76 mg/dL (65-99) 10/04/23 04:24 Hemoglobin A1c 6.0 % 10/02/23 04:40 Calcium 8.7 mg/dL (8.5-10.1) 10/04/23 04:24 Corrected Calcium 9.4 mg/dL (8.5-10.1) 10/04/23 04:24 Magnesium 2.1 mg/dL (2.0-2.9) 10/04/23 04:24 Total Bilirubin 0.30 mg/dL (0.2-1.0) 10/04/23 04:24 AST 15 Units/L (15-37) 04/25/24 04:24 ALT 24 Units/L (12-78) 10/04/23 04:24 Alkaline Phosphatase 97 Units/L (46-116) 10/04/23 04:24 Total Protein 6.3 g/dL (6.4-8.2) L 10/04/23 04:24 Albumin 3.1 g/dL (3.4-5.0) L 10/04/23 04:24 Globulin 3.2 g/dL (2.5-4.5) 10/04/23 04:24 Albumin/Globulin Ratio 1.0 Ratio (1.1-2.1) L 10/04/23 04:24 Amylase 70 Units/L (25-115) 10/04/23 04:24 Lipase 192 Units/L (16-77) H 10/03/23 04:38 TSH 3rd Generation 1.170 uIU/mL (0.358-3.74) 10/02/23 04:40 Specimen Type Clean catch urine 10/02/23 02:20 Urine Color Dark yellow (YELLOW) 10/02/23 02:20 Urine Appearance Clear (CLEAR) 10/02/23 02:20 Urine pH 5.0 (5.0 - 8.0) 10/02/23 02:20 Ur Specific [place] 1.025 (1.000-1.030) 10/02/23 02:20 Urine Protein Negative (NEGATIVE) 10/02/23 02:20 Urine Glucose (UA) Negative (NEGATIVE) 10/02/23 02:20 Urine Ketones 3+ (NEGATIVE) 10/02/23 02:20 Urine Blood Negative (NEGATIVE) 10/02/23 02:20 Urine Nitrite Negative (NEGATIVE) 10/02/23 02:20 Urine Bilirubin Negative (NEGATIVE) 10/02/23 02:20 Urine Urobilinogen Normal (NORMAL) 10/02/23 02:20 Ur Leukocyte Esterase Negative (NEGATIVE) 10/02/23 02:20 Plan (1) Pancreatitis: Status: Acute Plan: Start Bentyl, ppi therapy, benadryl. Continue NPO status, IV hydration, pain and nausea control, home medications. (2) Abdominal pain: Status: Acute (3) Nausea and vomiting: Status: Acute
== END 2023-10-04 11:05 | disposition home or self-care (01) | DRG 440 ==
LOC: ICU 17:47 → ER 17:47 → ICU 22:49
PROVIDERS: ADMIT Emergency Medicine; ATTEND Internal Medicine
DX: N83.291 Other ovarian cyst, right side; E83.42 Hypomagnesemia; K85.80 Other acute pancreatitis without necrosis or infection; R11.2 Nausea with vomiting, unspecified; K21.9 Gastro-esophageal reflux disease without esophagitis; R10.84 Generalized abdominal pain; E86.0 Dehydration; R10.13 Epigastric pain

== ENCOUNTER 2023-10-08 14:38 | Observation (INO) ==
[2023-10-08 17:06] LABS: BILIRUBIN,URINE NEGATIVE (NEGATIVE); BLOOD/HEMOGLOBIN,URINE 1+ (NEGATIVE); GLUCOSE, URINE NEGATIVE (NEGATIVE); KETONES,URINE 3+ (NEGATIVE); LEUKOCYTE ESTERASE ,URINE 2+ (NEGATIVE); NITRITES,URINE NEGATIVE (NEGATIVE); PROTEIN,URINE 2+ (NEGATIVE); UROBILINOGEN,URINE NORMAL (NORMAL)
[2023-10-08 17:15] LABS: APPEARANCE,URINE HAZY (CLEAR); COLOR,URINE YELLOW (YELLOW)
[2023-10-08 17:17] LABS: BACTERIA,URINE 2+ /HPF (NEGATIVE); SQUAMOUS EPITHELIAL CELL,UR MODERATE /HPF (NEGATIVE)
--- NOTE | 2023-10-08 17:33 | ED.ABDFE ---
HPI Time Seen Time Seen by Provider: 10/08/23 15:55 PCP Primary Care Physician: [facility] Complaint Chief Complaint:: pt reports upper abdominal pain that started last night. The pain radiates to the LUQ and around to her back. pt also reports nausea/vomiting. states she was admitted last week for pancreatitis, has taken bentyl as prescribed with no relief. 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56 X10^6/uL (3.5-5.4) 10/08/23 17:43 Hgb 12.6 g/dL (12.0-16.0) 10/08/23 17:43 Hct 38.3 % (36.0-47.0) 10/08/23 17:43 MCV 83.9 fL (80.0-100.0) 10/08/23 17:43 MCH 27.5 pg (27.0-34.0) 10/08/23 17:43 MCHC 32.8 g/dL (33.0-35.0) L 10/08/23 17:43 RDW 18.3 % (11.6-16.5) H 10/08/23 17:43 Plt Count 502 X10^3/uL (150.0-450.0) H 10/08/23 17:43 MPV 8.7 fL (7.4-11.0) 10/08/23 17:43 Neut % (Auto) 57.2 % (42.0-75.0) 10/08/23 17:43 Lymph % (Auto) 29.7 % (21.0-51.0) 10/08/23 17:43 [place] % (Auto) 9.9 % (0.0-13.0) 10/08/23 17:43 Eos % (Auto) 1.3 % (0.9-2.9) 10/08/23 17:43 Baso % (Auto) 1.9 % (0.2-1.0) H 10/08/23 17:43 Neut # (Auto) 5.5 x10^3/uL (2.2-4.8) H 10/08/23 17:43 Lymph # (Auto) 2.9 X10^3/uL (1.3-2.9) 10/08/23 17:43 [place] # (Auto) 1.0 x10^3/uL (0.3-0.8) H 10/08/23 17:43 Eos # (Auto) 0.1 x10^3/uL (0.0-0.2) 10/08/23 17:43 Baso # (Auto) 0.2 X10^3/uL (0.0-0.1) H 10/08/23 17:43 Absolute Nucleated RBC 0.1 /100WBC 10/08/23 17:43 Sodium 140 mmol/L (136-145) 10/08/23 17:43 Corrected Sodium TNP 10/08/23 17:43 Potassium 4.0 mmol/L (3.5-5.1) 10/08/23 17:43 Chloride 104 mmol/L (98-107) 10/08/23 17:43 Carbon Dioxide 27.0 mmol/L (21-32) 10/08/23 17:43 BUN 10 mg/dL (7-18) 10/08/23 17:43 Creatinine 0.75 mg/dL (0.55-1.02) 10/08/23 17:43 Est GFR (MDRD) Af Amer > 60 (>60) 10/08/23 17:43 Est GFR (MDRD) Non-Af > 60 (>60) 10/08/23 17:43 Glucose 77 mg/dL (65-99) 10/08/23 17:43 Calcium 9.2 mg/dL (8.5-10.1) 10/08/23 17:43 Corrected Calcium TNP 10/08/23 17:43 Total Bilirubin 0.50 mg/dL (0.2-1.0) 10/08/23 17:43 AST 17 Units/L (15-37) 10/08/23 17:43 ALT 28 Units/L (12-78) 10/08/23 17:43 Alkaline Phosphatase 105 Units/L (46-116) 10/08/23 17:43 Total Protein 7.4 g/dL (6.4-8.2) 10/08/23 17:43 Albumin 3.7 g/dL (3.4-5.0) 10/08/23 17:43 Globulin 3.7 g/dL (2.5-4.5) 10/08/23 17:43 Albumin/Globulin Ratio 1.0 Ratio (1.1-2.1) L 10/08/23 17:43 Amylase 168 Units/L (25-115) H 10/08/23 17:43 Lipase 325 Units/L (16-77) H 10/08/23 17:43 Specimen Type Clean catch urine 10/08/23 16:51 Urine Color Yellow (YELLOW) 10/08/23 16:51 Urine Appearance Hazy (CLEAR) 10/08/23 16:51 Urine pH 5.0 (5.0 - 8.0) 10/08/23 16:51 Ur Specific [place] 1.025 (1.000-1.030) 10/08/23 16:51 Urine Protein 2+ (NEGATIVE) 10/08/23 16:51 Urine Glucose (UA) Negative (NEGATIVE) 10/08/23 16:51 Urine Ketones 3+ (NEGATIVE) 10/08/23 16:51 Urine Blood 1+ (NEGATIVE) 10/08/23 16:51 Urine Nitrite Negative (NEGATIVE) 10/08/23 16:51 Urine Bilirubin Negative (NEGATIVE) 10/08/23 16:51 Urine Urobilinogen Normal (NORMAL) 10/08/23 16:51 Ur Leukocyte Esterase 2+ (NEGATIVE) 10/08/23 16:51 Urine RBC 3-5 /HPF (0-3) A 10/08/23 16:51 Urine WBC 10-20 /HPF (0-5) A 10/08/23 16:51 Ur Squamous Epith Cells Moderate /HPF (NEGATIVE) 10/08/23 16:51 Amorphous Sediment Trace /HPF (NEGATIVE) 10/08/23 16:51 Urine Bacteria 2+ /HPF (NEGATIVE) 10/08/23 16:51 Ur Culture Indicated? Yes/culture set up 10/08/23 16:51 Opioid Opioid Risk Tool Age (Rony box if 16-45): Yes History of Preadolescent Sexual Abuse: No Total: 1 Total Score Risk Category: Low Risk Copyright: Jese LAWS predicting aberrant behaviors Discharge Plan Discharge Plan Patient Disposition: 01 HOME, SELF-CARE Condition: Stable Orders to Discharge Patient Discharge Orders: Transfer (Routine); Ordered 10/08/23 Ordered By: FABIAN DICK
[2023-10-08] MEDS: NS 1,000 ML IV 1,000 ML IV ONE (17:50)
[2023-10-08] MEDS: ZOFRAN INJ 4 MG VIAL IVP ONE ×2 (17:50→19:34)
[2023-10-08 17:57] LABS: EOSINOPHILS # (AUTO) 0.1 x10^3/uL (0.0-0.2); MEAN CORPUSCULAR HGB CONC 32.8 g/dL (33.0-35.0); NEUTROPHILS # (AUTO) 5.5 x10^3/uL (2.2-4.8)
[2023-10-08 18:00] LABS: BASOPHILS # (AUTO) 0.2 X10^3/uL (0.0-0.1); BASOPHILS % (AUTO) 1.9 % (0.2-1.0); EOSINOPHILS % (AUTO) 1.3 % (0.9-2.9); HEMATOCRIT 38.3 % (36.0-47.0); HEMOGLOBIN 12.6 g/dL (12.0-16.0); LYMPHOCYTES # (AUTO) 2.9 X10^3/uL (1.3-2.9); LYMPHOCYTES % (AUTO) 29.7 % (21.0-51.0); MEAN CORPUSCULAR HEMOGLOBIN 27.5 pg (27.0-34.0); MEAN CORPUSCULAR VOLUME 83.9 fL (80.0-100.0); MEAN PLATELET VOLUME 8.7 fL (7.4-11.0); MONOCYTES % (AUTO) 9.9 % (0.0-13.0); NEUTROPHILS % (AUTO) 57.2 % (42.0-75.0); PLATELET COUNT 502 X10^3/uL (150.0-450.0); RED BLOOD COUNT 4.56 X10^6/uL (3.5-5.4); RED CELL DISTRIBUTION WIDTH 18.3 % (11.6-16.5); WHITE BLOOD COUNT 9.6 X10^3/uL (3.6-10.0)
[2023-10-08 18:06] LABS: ALANINE AMINOTRANSFERASE 28 Units/L (12-78); ALBUMIN 3.7 g/dL (3.4-5.0); ALKALINE PHOSPHATASE 105 Units/L (46-116); AMYLASE 168 Units/L (25-115); ASPARTATE AMINO TRANSFERASE 17 Units/L (15-37); BLOOD UREA NITROGEN 10 mg/dL (7-18); CALCIUM 9.2 mg/dL (8.5-10.1); CHLORIDE 104 mmol/L (98-107); CREATININE 0.75 mg/dL (0.55-1.02); GLUCOSE 77 mg/dL (65-99); SODIUM 140 mmol/L (136-145); TOTAL PROTEIN 7.4 g/dL (6.4-8.2); eGFR NON BLACK RACES > 60 (>60)
[2023-10-08 18:07] LABS: LIPASE 325 Units/L (16-77)
[2023-10-08] MEDS: DILAUDID INJ IVP ONE (19:33)
[2023-10-08] MEDS: PROTONIX INJ 40 MG VIAL IVP ONE (19:40)
[2023-10-08] MEDS: NS 1,000 ML IV 1,000 ML IV SCH (20:33)
[2023-10-08] MEDS: PROTONIX INJ 40 MG VIAL IVP SCH (20:49)
[2023-10-08] MEDS: PHENERGAN INJ 25 MG IM PRN (22:30)
[2023-10-09] MEDS: ZOFRAN INJ 4 MG VIAL IVP PRN (04:10)
[2023-10-09] MEDS: DILAUDID INJ IVP PRN (04:11)
[2023-10-09 05:59] LABS: BASOPHILS # (AUTO) 0.2 X10^3/uL (0.0-0.1); BASOPHILS % (AUTO) 1.8 % (0.2-1.0); EOSINOPHILS # (AUTO) 0.1 x10^3/uL (0.0-0.2); EOSINOPHILS % (AUTO) 1.4 % (0.9-2.9); HEMATOCRIT 35.5 % (36.0-47.0); HEMOGLOBIN 11.6 g/dL (12.0-16.0); LYMPHOCYTES # (AUTO) 3.7 X10^3/uL (1.3-2.9); LYMPHOCYTES % (AUTO) 39.3 % (21.0-51.0); MEAN CORPUSCULAR HEMOGLOBIN 27.7 pg (27.0-34.0); MEAN CORPUSCULAR HGB CONC 32.7 g/dL (33.0-35.0); MEAN CORPUSCULAR VOLUME 84.5 fL (80.0-100.0); MEAN PLATELET VOLUME 9.4 fL (7.4-11.0); MONOCYTES % (AUTO) 10.2 % (0.0-13.0); NEUTROPHILS # (AUTO) 4.4 x10^3/uL (2.2-4.8); NEUTROPHILS % (AUTO) 47.3 % (42.0-75.0); PLATELET COUNT 476 X10^3/uL (150.0-450.0); RED CELL DISTRIBUTION WIDTH 18.4 % (11.6-16.5); WHITE BLOOD COUNT 9.4 X10^3/uL (3.6-10.0)
[2023-10-09 06:24] LABS: ALANINE AMINOTRANSFERASE 23 Units/L (12-78); ALBUMIN 3.2 g/dL (3.4-5.0); ALKALINE PHOSPHATASE 93 Units/L (46-116); AMYLASE 223 Units/L (25-115); ASPARTATE AMINO TRANSFERASE 15 Units/L (15-37); BLOOD UREA NITROGEN 11 mg/dL (7-18); CALCIUM 8.7 mg/dL (8.5-10.1); CHLORIDE 106 mmol/L (98-107); COR CA(FOR HYPOALB) 9.3 mg/dL (8.5-10.1); CREATININE 0.75 mg/dL (0.55-1.02); GLUCOSE 65 mg/dL (65-99); MAGNESIUM 2.2 mg/dL (2.0-2.9); POTASSIUM 3.7 mmol/L (3.5-5.1); SODIUM 140 mmol/L (136-145); TOTAL PROTEIN 6.6 g/dL (6.4-8.2); eGFR NON BLACK RACES > 60 (>60)
[2023-10-09 06:32] LABS: LIPASE 420 Units/L (16-77)
[2023-10-09] MEDS ORDERED: CONSULT PHARMACY - POTASSIUM & MAGNESIUM XX SCH (07:00)
[2023-10-09] MEDS ORDERED: K-DUR TAB 20 MEQ PO SCH (09:00)
[2023-10-09] MEDS: K-RIDER 10 MEQ/100 ML WATER 10 MEQ/100 ML BAG IV SCH (09:09)
[2023-10-09] MEDS: NS 250 ML IV 25 ML IV PRN (09:10)
[2023-10-09] MEDS: ROCEPHIN VIAL 1 GRAM 1 G in NS 100 ML IV 100 ML IV SCH (10:06)
[2023-10-09] MEDS: COLACE CAP 100 MG PO PRN (10:07)
--- NOTE | 2023-10-09 13:13 | DR.H&P ---
H&P History & Physical for Day of: H&P Date: 10/09/23 Chief Complaint Chief Complaint: abdominal pain, N/V Allergies Allergies Allergy/AdvReac Type Severity Reaction Status Date / Time ketorolac [From Toradol] Allergy Severe RASH Verified 10/01/23 18:06 levofloxacin [From Levaquin] Allergy Verified 10/01/23 18:06 meropenem [From Merrem] Allergy Verified 10/01/23 18:06 piperacillin [From Zosyn] Allergy Verified 10/01/23 18:06 tazobactam [From Zosyn] Allergy Verified 10/01/23 18:06 History of Present Illness History of Present Illness: Ms Olguin is a 33y/o female with a PMH of recurrent pancreatitis s/p distal pancreatectomy and splenectomy for pancreatic cysts and GERD presented with worsening abdominal pain and poor oral intake. Patient was recently here for acute pancreatitis on 10/02/23. She states she was feeling better for a few days and then started hurting again. She reports not able to eat solid food and only keep liquids down. Er work up showed elevated amylase and lipase. She had a CTAP during her recent admission so it was not repeated. UA did show infection. She was started on IV fluids, pain control, anti-emetics and NPO status. Patient still has abdominal pain today, no episodes of vomiting overnight. She is also constipated. Labs/imaging reviewed -Hgb 11.6 Amylase 223 Lipase 420 -Urine Cx: contamination Plan: Will start Rocephin for UTI, repeat urine culture. Continue hydration, pain control and anti-emetics. Continue NPO. Replace electrolytes as per protocol. Add stool softners. Monitor AM labs/imaging. 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 Family History Family Medical History: Diabetes Mellitus, [place], Coronary Artery Disease and H ypertension Social History Does patient currently use any type of tobacco product: No Type of Tobacco Use: None Does any household member use tobacco: No Alcohol Use: None Drug Use: None Medications Home Medications: Home Medications Medication Instructions Recorded Confirmed Type ondansetron 4 mg disintegrating 4 mg PO Q8H PRN Nausea 06/07/23 10/08/23 History tablet pantoprazole 40 mg tablet,delayed 40 mg PO BID 06/07/23 10/08/23 History release dicyclomine 20 mg tablet 20 mg PO TID PRN Abdominal Pain 10/08/23 10/08/23 History Labs 10/09/23 04:20 10/09/23 04:20 Labs: 10/08/23 16:51 Urine,Clean Catch Urine Culture - Final Laboratory WBC 9.4 X10^3/uL (3.6-10.0) 10/09/23 04:20 RBC 4.20 X10^6/uL (3.5-5.4) 10/09/23 04:20 Hgb 11.6 g/dL (12.0-16.0) L 10/09/23 04:20 Hct 35.5 % (36.0-47.0) L 10/09/23 04:20 MCV 84.5 fL (80.0-100.0) 10/09/23 04:20 MCH 27.7 pg (27.0-34.0) 10/09/23 04:20 MCHC 32.7 g/dL (33.0-35.0) L 10/09/23 04:20 RDW 18.4 % (11.6-16.5) H 10/09/23 04:20 Plt Count 476 X10^3/uL (150.0-450.0) H 10/09/23 04:20 MPV 9.4 fL (7.4-11.0) 10/09/23 04:20 Neut % (Auto) 47.3 % (42.0-75.0) 10/09/23 04:20 Lymph % (Auto) 39.3 % (21.0-51.0) 10/09/23 04:20 [place] % (Auto) 10.2 % (0.0-13.0) 10/09/23 04:20 Eos % (Auto) 1.4 % (0.9-2.9) 10/09/23 04:20 Baso % (Auto) 1.8 % (0.2-1.0) H 10/09/23 04:20 Neut # (Auto) 4.4 x10^3/uL (2.2-4.8) 10/09/23 04:20 Lymph # (Auto) 3.7 X10^3/uL (1.3-2.9) H 10/09/23 04:20 [place] # (Auto) 1.0 x10^3/uL (0.3-0.8) H 10/09/23 04:20 Eos # (Auto) 0.1 x10^3/uL (0.0-0.2) 10/09/23 04:20 Baso # (Auto) 0.2 X10^3/uL (0.0-0.1) H 10/09/23 04:20 Absolute Nucleated RBC 0.1 /100WBC 10/09/23 04:20 Sodium 140 mmol/L (136-145) 10/09/23 04:20 Corrected Sodium TNP 10/09/23 04:20 Potassium 3.7 mmol/L (3.5-5.1) 10/09/23 04:20 Chloride 106 mmol/L (98-107) 10/09/23 04:20 Carbon Dioxide 24.0 mmol/L (21-32) 10/09/23 04:20 BUN 11 mg/dL (7-18) 10/09/23 04:20 Creatinine 0.75 mg/dL (0.55-1.02) 10/09/23 04:20 Est GFR (MDRD) Af Amer > 60 (>60) 10/09/23 04:20 Est GFR (MDRD) Non-Af > 60 (>60) 10/09/23 04:20 Glucose 65 mg/dL (65-99) 10/09/23 04:20 Calcium 8.7 mg/dL (8.5-10.1) 10/09/23 04:20 Corrected Calcium 9.3 mg/dL (8.5-10.1) 10/09/23 04:20 Magnesium 2.2 mg/dL (2.0-2.9) 10/09/23 04:20 Total Bilirubin 0.70 mg/dL (0.2-1.0) 10/09/23 04:20 AST 15 Units/L (15-37) 10/09/23 04:20 ALT 23 Units/L (12-78) 10/09/23 04:20 Alkaline Phosphatase 93 Units/L (46-116) 10/09/23 04:20 Total Protein 6.6 g/dL (6.4-8.2) 10/09/23 04:20 Albumin 3.2 g/dL (3.4-5.0) L 10/09/23 04:20 Globulin 3.4 g/dL (2.5-4.5) 10/09/23 04:20 Albumin/Globulin Ratio 0.9 Ratio (1.1-2.1) L 10/09/23 04:20 Amylase 223 Units/L (25-115) H 10/09/23 04:20 Lipase 420 Units/L (16-77) H 10/09/23 04:20 Specimen Type Clean catch urine 10/08/23 16:51 Urine Color Yellow (YELLOW) 10/08/23 16:51 Urine Appearance Hazy (CLEAR) 10/08/23 16:51 Urine pH 5.0 (5.0 - 8.0) 10/08/23 16:51 Ur Specific [place] 1.025 (1.000-1.030) 10/08/23 16:51 Urine Protein 2+ (NEGATIVE) 10/08/23 16:51 Urine Glucose (UA) Negative (NEGATIVE) 10/08/23 16:51 Urine Ketones 3+ (NEGATIVE) 10/08/23 16:51 Urine Blood 1+ (NEGATIVE) 10/08/23 16:51 Urine Nitrite Negative (NEGATIVE) 10/08/23 16:51 Urine Bilirubin Negative (NEGATIVE) 10/08/23 16:51 Urine Urobilinogen Normal (NORMAL) 10/08/23 16:51 Ur Leukocyte Esterase 2+ (NEGATIVE) 10/08/23 16:51 Urine RBC 3-5 /HPF (0-3) A 10/08/23 16:51 Urine WBC 10-20 /HPF (0-5) A 10/08/23 16:51 Ur Squamous Epith Cells Moderate /HPF (NEGATIVE) 10/08/23 16:51 Amorphous Sediment Trace /HPF (NEGATIVE) 10/08/23 16:51 Urine Bacteria 2+ /HPF (NEGATIVE) 10/08/23 16:51 Ur Culture Indicated? Yes/culture set up 10/08/23 16:51 Review of Systems Constitutional: Weakness Eyes: No Symptoms Reported Respiratory: No Symptoms Reported Cardiovascular: No Symptoms Reported Gastrointestinal: Nausea, Vomiting and Abdominal Pain Musculoskeletal: No Symptoms Reported Skin: No Symptoms Reported Neurological: No Symptoms Reported Physical Exam Vital Signs: Vital Signs Temperature 98.0 F Pulse Rate 54 Respiratory Rate 18 Respiratory Rate 17 Respiratory Rate 18 Blood Pressure 136/65 O2 Sat by Pulse Oximetry 100 Oriented: Normal Eyes: Normal Nose: Normal Respiratory: Clear Throughout Cardiovascular: Normal Auscultation: Bowel Sounds: Normal Tenderness: Diffuse, Periumbilical and Moderate Skin: Normal Musculoskeletal: Normal Psychiatric: Normal Mood Description: Calm Affect: Normal Speech Pattern: Clear and Appropriate Assessment/Plan (1) Pancreatitis: Qualifiers: Chronicity: chronic Pancreatitis type: idiopathic Qualified Code(s): K86.1 - Other chronic pancreatitis Status: Acute (2) Nausea and vomiting: Qualifiers: Vomiting type: unspecified Qualified Code(s): R11.2 - Nausea with vomiting, unspecified Status: Acute (3) UTI (urinary tract infection): Qualifiers: Urinary tract infection type: acute cystitis Hematuria presence: without hematuria Qualified Code(s): N30.00 - Acute cystitis without hematuria Status: Acute (4) Constipation: Qualifiers: Constipation type: other constipation type Qualified Code(s): K59.09 - Other constipation Status: Acute (5) Recurrent pancreatitis: Status: Acute Review H&P Reviewed: Yes Patient was examined?: Yes
[2023-10-09] MEDS: ZOFRAN INJ 4 MG VIAL ONE (18:41)
[2023-10-10 05:34] LABS: BASOPHILS # (AUTO) 0.1 X10^3/uL (0.0-0.1); BASOPHILS % (AUTO) 1.5 % (0.2-1.0); EOSINOPHILS # (AUTO) 0.2 x10^3/uL (0.0-0.2); EOSINOPHILS % (AUTO) 1.7 % (0.9-2.9); HEMATOCRIT 36.9 % (36.0-47.0); HEMOGLOBIN 11.9 g/dL (12.0-16.0); LYMPHOCYTES # (AUTO) 3.7 X10^3/uL (1.3-2.9); LYMPHOCYTES % (AUTO) 38.6 % (21.0-51.0); MEAN CORPUSCULAR HEMOGLOBIN 27.1 pg (27.0-34.0); MEAN CORPUSCULAR HGB CONC 32.2 g/dL (33.0-35.0); MEAN CORPUSCULAR VOLUME 84.1 fL (80.0-100.0); MEAN PLATELET VOLUME 9.4 fL (7.4-11.0); MONOCYTES # (AUTO) 1.1 x10^3/uL (0.3-0.8); MONOCYTES % (AUTO) 11.8 % (0.0-13.0); NEUTROPHILS # (AUTO) 4.4 x10^3/uL (2.2-4.8); NEUTROPHILS % (AUTO) 46.4 % (42.0-75.0); PLATELET COUNT 485 X10^3/uL (150.0-450.0); RED BLOOD COUNT 4.38 X10^6/uL (3.5-5.4); RED CELL DISTRIBUTION WIDTH 17.8 % (11.6-16.5); WHITE BLOOD COUNT 9.5 X10^3/uL (3.6-10.0)
[2023-10-10 05:40] LABS: ALANINE AMINOTRANSFERASE 22 Units/L (12-78); ALBUMIN 3.3 g/dL (3.4-5.0); ALKALINE PHOSPHATASE 98 Units/L (46-116); ASPARTATE AMINO TRANSFERASE 15 Units/L (15-37); BLOOD UREA NITROGEN 9 mg/dL (7-18); CALCIUM 8.8 mg/dL (8.5-10.1); CARBON DIOXIDE 23.9 mmol/L (21-32); CHLORIDE 104 mmol/L (98-107); COR CA(FOR HYPOALB) 9.4 mg/dL (8.5-10.1); CREATININE 0.72 mg/dL (0.55-1.02); GLUCOSE 57 mg/dL (65-99); MAGNESIUM 2.2 mg/dL (2.0-2.9); SODIUM 138 mmol/L (136-145); TOTAL PROTEIN 6.8 g/dL (6.4-8.2); eGFR NON BLACK RACES > 60 (>60)
--- NOTE | 2023-10-10 09:30 | PCM.PROG ---
Progress Note Progress Note for Day of Date of Exam: 10/10/23 Subjective Subjective: Patient seen at bedside, no acute events overnight. She states she is feeling slightly better. She still has nausea, abdominal pain is a little bit better than yesterday. Denies vomiting. She has been ambulating in the room. Her glucose was 57 this morning. Labs/imaging reviewed -WBC 9.5 Hgb 11.9 K:4.0 -Urine Cx: contamination Plan: will switch to D5, start clears if tolerated. Continue pain control, anti- emetics. Replace electrolytes as needed. Continue Rocephin. Will send AIT UTI panel as both cultures have been contaminated. Monitor AM labs/imaging. Past Medical Family Social History Allergies: Allergies ketorolac [From Toradol] Allergy (Severe, Verified 10/01/23 18:06) RASH pt states that toradol causes a severe reddened, raised rash levofloxacin [From Levaquin] Allergy (Verified 10/01/23 18:06) meropenem [From Merrem] Allergy (Verified 10/01/23 18:06) piperacillin [From Zosyn] Allergy (Verified 10/01/23 18:06) tazobactam [From Zosyn] Allergy (Verified 10/01/23 18:06) Vital Signs and I&O's Vital Signs: Vital Signs Temperature 97.8 F Temperature 98.5 F Pulse Rate 58 Pulse Rate 86 Respiratory Rate 18 Respiratory Rate 18 Respiratory Rate 20 Blood Pressure 125/72 Blood Pressure 119/85 O2 Sat by Pulse Oximetry 100 O2 Sat by Pulse Oximetry 99 Intake and Output: Intake & Output 10/07/23 10/08/23 10/09/23 10/10/23 23:59 23:59 23:59 23:59 Intake Total 350 / 350 3141 / 3141 847 / 847 Balance 350 / 350 3141 / 3141 847 / 847 Physical Exam Oriented: Normal Eyes: Normal Nose: Normal Respiratory: Normal Cardiovascular: Normal Auscultation: Bowel Sounds: Normal Tenderness: LLQ, Periumbilical, Mild and Moderate Skin: Normal Musculoskeletal: Normal Psychiatric: Normal Mood Description: Calm Affect: Normal Speech Pattern: Clear and Appropriate Laboratory and Diagnostics 10/10/23 03:55 10/10/23 03:55 Labs: 10/09/23 12:50 Urine,Clean Catch Urine Culture - Final 10/08/23 16:51 Urine,Clean Catch Urine Culture - Final Laboratory WBC 9.5 X10^3/uL (3.6-10.0) 10/10/23 03:55 RBC 4.38 X10^6/uL (3.5-5.4) 10/10/23 03:55 Hgb 11.9 g/dL (12.0-16.0) L 10/10/23 03:55 Hct 36.9 % (36.0-47.0) 10/10/23 03:55 MCV 84.1 fL (80.0-100.0) 10/10/23 03:55 MCH 27.1 pg (27.0-34.0) 10/10/23 03:55 MCHC 32.2 g/dL (33.0-35.0) L 10/10/23 03:55 RDW 17.8 % (11.6-16.5) H 10/10/23 03:55 Plt Count 485 X10^3/uL (150.0-450.0) H 10/10/23 03:55 MPV 9.4 fL (7.4-11.0) 10/10/23 03:55 Neut % (Auto) 46.4 % (42.0-75.0) 10/10/23 03:55 Lymph % (Auto) 38.6 % (21.0-51.0) 10/10/23 03:55 [place] % (Auto) 11.8 % (0.0-13.0) 10/10/23 03:55 Eos % (Auto) 1.7 % (0.9-2.9) 10/10/23 03:55 Baso % (Auto) 1.5 % (0.2-1.0) H 10/10/23 03:55 Neut # (Auto) 4.4 x10^3/uL (2.2-4.8) 10/10/23 03:55 Lymph # (Auto) 3.7 X10^3/uL (1.3-2.9) H 10/10/23 03:55 [place] # (Auto) 1.1 x10^3/uL (0.3-0.8) H 10/10/23 03:55 Eos # (Auto) 0.2 x10^3/uL (0.0-0.2) 10/10/23 03:55 Baso # (Auto) 0.1 X10^3/uL (0.0-0.1) 10/10/23 03:55 Absolute Nucleated RBC 0.1 /100WBC 10/10/23 03:55 Sodium 138 mmol/L (136-145) 10/10/23 03:55 Corrected Sodium TNP 10/10/23 03:55 Potassium 4.0 mmol/L (3.5-5.1) 10/10/23 03:55 Chloride 104 mmol/L (98-107) 10/10/23 03:55 Carbon Dioxide 23.9 mmol/L (21-32) 10/10/23 03:55 BUN 9 mg/dL (7-18) 10/10/23 03:55 Creatinine 0.72 mg/dL (0.55-1.02) 10/10/23 03:55 Est GFR (MDRD) Af Amer > 60 (>60) 10/10/23 03:55 Est GFR (MDRD) Non-Af > 60 (>60) 10/10/23 03:55 Glucose 57 mg/dL (65-99) L 10/10/23 03:55 Calcium 8.8 mg/dL (8.5-10.1) 10/10/23 03:55 Corrected Calcium 9.4 mg/dL (8.5-10.1) 10/10/23 03:55 Magnesium 2.2 mg/dL (2.0-2.9) 10/10/23 03:55 Total Bilirubin 0.50 mg/dL (0.2-1.0) 10/10/23 03:55 AST 15 Units/L (15-37) 10/10/23 03:55 ALT 22 Units/L (12-78) 10/10/23 03:55 Alkaline Phosphatase 98 Units/L (46-116) 10/10/23 03:55 Total Protein 6.8 g/dL (6.4-8.2) 10/10/23 03:55 Albumin 3.3 g/dL (3.4-5.0) L 10/10/23 03:55 Globulin 3.5 g/dL (2.5-4.5) 10/10/23 03:55 Albumin/Globulin Ratio 0.9 Ratio (1.1-2.1) L 10/10/23 03:55 Amylase 223 Units/L (25-115) H 10/09/23 04:20 Lipase 420 Units/L (16-77) H 10/09/23 04:20 Specimen Type Clean catch urine 10/08/23 16:51 Urine Color Yellow (YELLOW) 10/08/23 16:51 Urine Appearance Hazy (CLEAR) 10/08/23 16:51 Urine pH 5.0 (5.0 - 8.0) 10/08/23 16:51 Ur Specific [place] 1.025 (1.000-1.030) 10/08/23 16:51 Urine Protein 2+ (NEGATIVE) 10/08/23 16:51 Urine Glucose (UA) Negative (NEGATIVE) 10/08/23 16:51 Urine Ketones 3+ (NEGATIVE) 10/08/23 16:51 Urine Blood 1+ (NEGATIVE) 10/08/23 16:51 Urine Nitrite Negative (NEGATIVE) 10/08/23 16:51 Urine Bilirubin Negative (NEGATIVE) 10/08/23 16:51 Urine Urobilinogen Normal (NORMAL) 10/08/23 16:51 Ur Leukocyte Esterase 2+ (NEGATIVE) 10/08/23 16:51 Urine RBC 3-5 /HPF (0-3) A 10/08/23 16:51 Urine WBC 10-20 /HPF (0-5) A 10/08/23 16:51 Ur Squamous Epith Cells Moderate /HPF (NEGATIVE) 10/08/23 16:51 Amorphous Sediment Trace /HPF (NEGATIVE) 10/08/23 16:51 Urine Bacteria 2+ /HPF (NEGATIVE) 10/08/23 16:51 Ur Culture Indicated? Yes/culture set up 10/08/23 16:51 Plan (1) Pancreatitis: Status: Acute Qualifiers: Chronicity: chronic Pancreatitis type: idiopathic Qualified Code(s): K86.1 - Other chronic pancreatitis (2) Nausea and vomiting: Status: Acute Qualifiers: Vomiting type: unspecified Qualified Code(s): R11.2 - Nausea with vomiting, unspecified (3) UTI (urinary tract infection): Status: Acute Qualifiers: Hematuria presence: without hematuria Urinary tract infection type: acute cystitis Qualified Code(s): N30.00 - Acute cystitis without hematuria (4) Constipation: Status: Acute Qualifiers: Constipation type: other constipation type Qualified Code(s): K59.09 - Other constipation (5) Recurrent pancreatitis: Status: Acute
[2023-10-10] MEDS: D5W 1,000 ML IV 1,000 ML IV SCH (09:50)
[2023-10-10] MEDS: DILAUDID INJ IVP PRN (10:34)
[2023-10-10 18:07] VITALS: BMI 30.9
[2023-10-11 06:24] LABS: BASOPHILS # (AUTO) 0.2 X10^3/uL (0.0-0.1); BASOPHILS % (AUTO) 2.5 % (0.2-1.0); EOSINOPHILS # (AUTO) 0.2 x10^3/uL (0.0-0.2); EOSINOPHILS % (AUTO) 2.9 % (0.9-2.9); HEMATOCRIT 39.6 % (36.0-47.0); LYMPHOCYTES # (AUTO) 2.8 X10^3/uL (1.3-2.9); LYMPHOCYTES % (AUTO) 36.8 % (21.0-51.0); MEAN CORPUSCULAR HEMOGLOBIN 27.5 pg (27.0-34.0); MEAN CORPUSCULAR HGB CONC 32.9 g/dL (33.0-35.0); MEAN CORPUSCULAR VOLUME 83.7 fL (80.0-100.0); MEAN PLATELET VOLUME 8.9 fL (7.4-11.0); MONOCYTES # (AUTO) 1.2 x10^3/uL (0.3-0.8); MONOCYTES % (AUTO) 15.2 % (0.0-13.0); NEUTROPHILS # (AUTO) 3.2 x10^3/uL (2.2-4.8); NEUTROPHILS % (AUTO) 42.6 % (42.0-75.0); PLATELET COUNT 519 X10^3/uL (150.0-450.0); RED BLOOD COUNT 4.73 X10^6/uL (3.5-5.4); RED CELL DISTRIBUTION WIDTH 18.2 % (11.6-16.5); WHITE BLOOD COUNT 7.6 X10^3/uL (3.6-10.0)
[2023-10-11 06:58] LABS: ALANINE AMINOTRANSFERASE 28 Units/L (12-78); ALBUMIN 3.8 g/dL (3.4-5.0); ALKALINE PHOSPHATASE 114 Units/L (46-116); ASPARTATE AMINO TRANSFERASE 24 Units/L (15-37); BLOOD UREA NITROGEN 7 mg/dL (7-18); CALCIUM 9.4 mg/dL (8.5-10.1); CHLORIDE 101 mmol/L (98-107); CREATININE 0.88 mg/dL (0.55-1.02); GLUCOSE 96 mg/dL (65-99); MAGNESIUM 2.3 mg/dL (2.0-2.9); POTASSIUM 3.5 mmol/L (3.5-5.1); SODIUM 138 mmol/L (136-145); TOTAL PROTEIN 7.7 g/dL (6.4-8.2); eGFR NON BLACK RACES > 60 (>60)
[2023-10-11 07:03] LABS: ANISOCYTOSIS SLIGHT; GIANT PLATELET RARE; PLATELET MORPHOLOGY COMMENT ABNORMAL (NORMAL); POIKILOCYTOSIS SLIGHT; SCHISTOCYTES SLIGHT; TARGET CELLS SLIGHT
[2023-10-11] MEDS ORDERED: CONSULT PHARMACY - POTASSIUM & MAGNESIUM XX SCH (08:00)
[2023-10-11] MEDS: K-DUR TAB 20 MEQ PO ONE (09:12)
--- NOTE | 2023-10-11 10:20 | PCM.PROG ---
Progress Note Progress Note for Day of Date of Exam: 10/11/23 Subjective Subjective: Patient is a 33 year old female admitted for acute pancreatitis. She states that yesterday she did well with clear liquid diet. She did report having more abdominal pain at night and this morning. Overall, she states she is feeling slightly better. Labs/imaging reviewed -WBC 7.6, Hgb 13, Plt 519, Na 138, K 3.5, Creatinine 0.88, Glucose 96 -Urine Cx: contamination Plan: Continue D5, Will advance diet to full liquid as tolerated. Continue pain control, anti-emetics. Replace electrolytes as needed. Continue Rocephin. AIT urine pending. Monitor AM labs/imaging. Past Medical Family Social History Allergies: Allergies ketorolac [From Toradol] Allergy (Severe, Verified 10/01/23 18:06) RASH pt states that toradol causes a severe reddened, raised rash levofloxacin [From Levaquin] Allergy (Verified 10/01/23 18:06) meropenem [From Merrem] Allergy (Verified 10/01/23 18:06) piperacillin [From Zosyn] Allergy (Verified 10/01/23 18:06) tazobactam [From Zosyn] Allergy (Verified 10/01/23 18:06) Review of Systems ROS changes noted: see HPI Vital Signs and I&O's Vital Signs: Vital Signs Temperature 98.2 F Temperature 98.0 F Pulse Rate 56 Pulse Rate 61 Respiratory Rate 18 Respiratory Rate 20 Respiratory Rate 20 Blood Pressure 111/71 Blood Pressure 110/61 O2 Sat by Pulse Oximetry 96 O2 Sat by Pulse Oximetry 95 Intake and Output: Intake & Output 10/08/23 10/09/23 10/10/23 10/11/23 23:59 23:59 23:59 23:59 Intake Total 350 / 350 3141 / 3141 2895 / 2895 624 / 624 Balance 350 / 350 3141 / 3141 2895 / 2895 624 / 624 Physical Exam Oriented: Normal Eyes: Normal Nose: Normal Respiratory: Normal Cardiovascular: Normal Auscultation: Bowel Sounds: Normal Tenderness: Periumbilical, Mild and Moderate Skin: Normal Musculoskeletal: Normal Psychiatric: Normal Mood Description: Calm Affect: Normal Speech Pattern: Clear and Appropriate Laboratory and Diagnostics 10/11/23 05:52 10/11/23 05:52 Labs: 10/09/23 12:50 Urine,Clean Catch Urine Culture - Final 10/08/23 16:51 Urine,Clean Catch Urine Culture - Final Laboratory WBC 7.6 X10^3/uL (3.6-10.0) 10/11/23 05:52 RBC 4.73 X10^6/uL (3.5-5.4) 10/11/23 05:52 Hgb 13.0 g/dL (12.0-16.0) 10/11/23 05:52 Hct 39.6 % (36.0-47.0) 10/11/23 05:52 MCV 83.7 fL (80.0-100.0) 10/11/23 05:52 MCH 27.5 pg (27.0-34.0) 10/11/23 05:52 MCHC 32.9 g/dL (33.0-35.0) L 10/11/23 05:52 RDW 18.2 % (11.6-16.5) H 10/11/23 05:52 Plt Count 519 X10^3/uL (150.0-450.0) H 10/11/23 05:52 Plt Count Comment Increased (ADEQUATE) A 10/11/23 05:52 MPV 8.9 fL (7.4-11.0) 10/11/23 05:52 Neut % (Auto) 42.6 % (42.0-75.0) 10/11/23 05:52 Lymph % (Auto) 36.8 % (21.0-51.0) 10/11/23 05:52 [place] % (Auto) 15.2 % (0.0-13.0) H 10/11/23 05:52 Eos % (Auto) 2.9 % (0.9-2.9) 10/11/23 05:52 Baso % (Auto) 2.5 % (0.2-1.0) H 10/11/23 05:52 Neut # (Auto) 3.2 x10^3/uL (2.2-4.8) 10/11/23 05:52 Lymph # (Auto) 2.8 X10^3/uL (1.3-2.9) 10/11/23 05:52 [place] # (Auto) 1.2 x10^3/uL (0.3-0.8) H 10/11/23 05:52 Eos # (Auto) 0.2 x10^3/uL (0.0-0.2) 10/11/23 05:52 Baso # (Auto) 0.2 X10^3/uL (0.0-0.1) H 10/11/23 05:52 Absolute Nucleated RBC 0.0 /100WBC 10/11/23 05:52 Giant Platelets Rare 10/11/23 05:52 Plt Morphology Comment Abnormal (NORMAL) A 10/11/23 05:52 RBC Morphology Normal (NORMAL) 10/11/23 05:52 Poikilocytosis Slight A 10/11/23 05:52 Anisocytosis Slight A 10/11/23 05:52 Target Cells Slight A 10/11/23 05:52 Schistocytes Slight A 10/11/23 05:52 Sodium 138 mmol/L (136-145) 10/11/23 05:52 Corrected Sodium TNP 10/11/23 05:52 Potassium 3.5 mmol/L (3.5-5.1) 10/11/23 05:52 Chloride 101 mmol/L (98-107) 10/11/23 05:52 Carbon Dioxide 25.0 mmol/L (21-32) 10/11/23 05:52 BUN 7 mg/dL (7-18) 10/11/23 05:52 Creatinine 0.88 mg/dL (0.55-1.02) 10/11/23 05:52 Est GFR (MDRD) Af Amer > 60 (>60) 10/11/23 05:52 Est GFR (MDRD) Non-Af > 60 (>60) 10/11/23 05:52 Glucose 96 mg/dL (65-99) 10/11/23 05:52 Calcium 9.4 mg/dL (8.5-10.1) 10/11/23 05:52 Corrected Calcium TNP 10/11/23 05:52 Magnesium 2.3 mg/dL (2.0-2.9) 10/11/23 05:52 Total Bilirubin 0.50 mg/dL (0.2-1.0) 10/11/23 05:52 AST 24 Units/L (15-37) 10/11/23 05:52 ALT 28 Units/L (12-78) 10/11/23 05:52 Alkaline Phosphatase 114 Units/L (46-116) 10/11/23 05:52 Total Protein 7.7 g/dL (6.4-8.2) 10/11/23 05:52 Albumin 3.8 g/dL (3.4-5.0) 10/11/23 05:52 Globulin 3.9 g/dL (2.5-4.5) 10/11/23 05:52 Albumin/Globulin Ratio 1.0 Ratio (1.1-2.1) L 10/11/23 05:52 Amylase 223 Units/L (25-115) H 10/09/23 04:20 Lipase 420 Units/L (16-77) H 10/09/23 04:20 Specimen Type Clean catch urine 10/08/23 16:51 Urine Color Yellow (YELLOW) 10/08/23 16:51 Urine Appearance Hazy (CLEAR) 10/08/23 16:51 Urine pH 5.0 (5.0 - 8.0) 10/08/23 16:51 Ur Specific [place] 1.025 (1.000-1.030) 10/08/23 16:51 Urine Protein 2+ (NEGATIVE) 10/08/23 16:51 Urine Glucose (UA) Negative (NEGATIVE) 10/08/23 16:51 Urine Ketones 3+ (NEGATIVE) 10/08/23 16:51 Urine Blood 1+ (NEGATIVE) 10/08/23 16:51 Urine Nitrite Negative (NEGATIVE) 10/08/23 16:51 Urine Bilirubin Negative (NEGATIVE) 10/08/23 16:51 Urine Urobilinogen Normal (NORMAL) 10/08/23 16:51 Ur Leukocyte Esterase 2+ (NEGATIVE) 10/08/23 16:51 Urine RBC 3-5 /HPF (0-3) A 10/08/23 16:51 Urine WBC 10-20 /HPF (0-5) A 10/08/23 16:51 Ur Squamous Epith Cells Moderate /HPF (NEGATIVE) 10/08/23 16:51 Amorphous Sediment Trace /HPF (NEGATIVE) 10/08/23 16:51 Urine Bacteria 2+ /HPF (NEGATIVE) 10/08/23 16:51 Ur Culture Indicated? Yes/culture set up 10/08/23 16:51 Plan (1) Pancreatitis: Status: Acute Qualifiers: Chronicity: chronic Pancreatitis type: idiopathic Qualified Code(s): K86.1 - Other chronic pancreatitis (2) Nausea and vomiting: Status: Acute Qualifiers: Vomiting type: unspecified Qualified Code(s): R11.2 - Nausea with vomiting, unspecified (3) UTI (urinary tract infection): Status: Acute Qualifiers: Urinary tract infection type: acute cystitis Hematuria presence: without hematuria Qualified Code(s): N30.00 - Acute cystitis without hematuria (4) Constipation: Status: Acute Qualifiers: Constipation type: other constipation type Qualified Code(s): K59.09 - Other constipation (5) Recurrent pancreatitis: Status: Acute
[2023-10-11] MEDS: MILK OF MAGNESIA PO PRN (19:46)
[2023-10-12 04:56] VITALS: RESP 18; O2SAT 98
[2023-10-12 06:19] LABS: BASOPHILS # (AUTO) 0.2 X10^3/uL (0.0-0.1); BASOPHILS % (AUTO) 1.7 % (0.2-1.0); EOSINOPHILS # (AUTO) 0.2 x10^3/uL (0.0-0.2); HEMATOCRIT 39.2 % (36.0-47.0); LYMPHOCYTES # (AUTO) 2.7 X10^3/uL (1.3-2.9); LYMPHOCYTES % (AUTO) 30.6 % (21.0-51.0); MEAN CORPUSCULAR HEMOGLOBIN 27.6 pg (27.0-34.0); MEAN CORPUSCULAR HGB CONC 33.1 g/dL (33.0-35.0); MEAN CORPUSCULAR VOLUME 83.4 fL (80.0-100.0); MEAN PLATELET VOLUME 9.1 fL (7.4-11.0); MONOCYTES # (AUTO) 1.2 x10^3/uL (0.3-0.8); MONOCYTES % (AUTO) 14.2 % (0.0-13.0); NEUTROPHILS # (AUTO) 4.5 x10^3/uL (2.2-4.8); NEUTROPHILS % (AUTO) 51.5 % (42.0-75.0); PLATELET COUNT 505 X10^3/uL (150.0-450.0); RED CELL DISTRIBUTION WIDTH 18.4 % (11.6-16.5); WHITE BLOOD COUNT 8.8 X10^3/uL (3.6-10.0)
[2023-10-12 06:36] LABS: ALANINE AMINOTRANSFERASE 34 Units/L (12-78); ALBUMIN 3.6 g/dL (3.4-5.0); ALKALINE PHOSPHATASE 111 Units/L (46-116); ASPARTATE AMINO TRANSFERASE 30 Units/L (15-37); BLOOD UREA NITROGEN 7 mg/dL (7-18); CALCIUM 9.1 mg/dL (8.5-10.1); CARBON DIOXIDE 26.1 mmol/L (21-32); CHLORIDE 101 mmol/L (98-107); CREATININE 0.87 mg/dL (0.55-1.02); GLUCOSE 95 mg/dL (65-99); POTASSIUM 3.8 mmol/L (3.5-5.1); SODIUM 138 mmol/L (136-145); TOTAL PROTEIN 7.4 g/dL (6.4-8.2); eGFR NON BLACK RACES > 60 (>60)
[2023-10-12 06:44] LABS: ANISOCYTOSIS SLIGHT; GIANT PLATELET RARE; PLATELET MORPHOLOGY COMMENT ABNORMAL (NORMAL)
[2023-10-12 08:39] VITALS: BP 115/63; PULSE 72; TEMP 97.8
--- NOTE | 2023-10-14 16:35 | W.DIS.FURT ---
Summary of Discharge Discharge Summary of Date Date of Exam: 10/12/23 Admission Date Date of Admission: 10/08/23 Admission Diagnosis Hospital Course: Patient is a 33 year old female admitted for acute pancreatitis and acute cystitis. Her hospital/treatment course included IVF, NPO diet that was gradually advanced, pain control, anti-emetics. Electrolytes were repleted. IV antibiotics. Rocephin. AIT urine positive for E coli and Enterococcus. Pt responded well to treatments, symptoms improved, and was able to tolerate po intake. Rx augmentin, diflucan, norco. Pt discharged in stable condition, instructed to follow up with pcp and referral made to [facility]-Dr Villarreal to be followed outpatient. Vital Signs: Vital Signs (72 hours) 10/11/23 19:32 10/11/23 19:45 10/11/23 19:00 Temperature 98.2 F Pulse Rate 68 Respiratory Rate 21 18 Blood Pressure 112/73 O2 Sat by Pulse Oximetry 98 Oxygen Delivery Method Room Air 10/11/23 20:15 10/11/23 23:54 10/12/23 01:51 Temperature 98.1 F Pulse Rate 83 Respiratory Rate 21 22 22 Blood Pressure 118/75 O2 Sat by Pulse Oximetry 95 Oxygen Delivery Method 10/12/23 02:21 10/12/23 04:00 10/12/23 07:00 Temperature 97.9 F Pulse Rate 71 Respiratory Rate 22 18 Blood Pressure 108/59 O2 Sat by Pulse Oximetry 98 Oxygen Delivery Method Room Air 10/12/23 08:03 10/12/23 08:00 10/12/23 08:33 Temperature 97.8 F Pulse Rate 72 Respiratory Rate 18 18 18 Blood Pressure 115/63 O2 Sat by Pulse Oximetry 98 Oxygen Delivery Method Labs: Laboratory Last Values WBC 8.8 X10^3/uL (3.6-10.0) 10/12/23 05:35 RBC 4.70 X10^6/uL (3.5-5.4) 10/12/23 05:35 Hgb 13.0 g/dL (12.0-16.0) 10/12/23 05:35 Hct 39.2 % (36.0-47.0) 10/12/23 05:35 MCV 83.4 fL (80.0-100.0) 10/12/23 05:35 MCH 27.6 pg (27.0-34.0) 10/12/23 05:35 MCHC 33.1 g/dL (33.0-35.0) 10/12/23 05:35 RDW 18.4 % (11.6-16.5) H 10/12/23 05:35 Plt Count 505 X10^3/uL (150.0-450.0) H 10/12/23 05:35 Plt Count Comment Increased (ADEQUATE) A 10/12/23 05:35 MPV 9.1 fL (7.4-11.0) 10/12/23 05:35 Neut % (Auto) 51.5 % (42.0-75.0) 10/12/23 05:35 Lymph % (Auto) 30.6 % (21.0-51.0) 10/12/23 05:35 [place] % (Auto) 14.2 % (0.0-13.0) H 10/12/23 05:35 Eos % (Auto) 2.0 % (0.9-2.9) 10/12/23 05:35 Baso % (Auto) 1.7 % (0.2-1.0) H 10/12/23 05:35 Neut # (Auto) 4.5 x10^3/uL (2.2-4.8) 10/12/23 05:35 Lymph # (Auto) 2.7 X10^3/uL (1.3-2.9) 10/12/23 05:35 [place] # (Auto) 1.2 x10^3/uL (0.3-0.8) H 10/12/23 05:35 Eos # (Auto) 0.2 x10^3/uL (0.0-0.2) 10/12/23 05:35 Baso # (Auto) 0.2 X10^3/uL (0.0-0.1) H 10/12/23 05:35 Absolute Nucleated RBC 0.1 /100WBC 10/12/23 05:35 Giant Platelets Rare 10/12/23 05:35 Plt Morphology Comment Abnormal (NORMAL) A 10/12/23 05:35 RBC Morphology Abnormal (NORMAL) A 10/12/23 05:35 Poikilocytosis Slight A 10/11/23 05:52 Anisocytosis Slight A 10/12/23 05:35 Target Cells Slight A 10/11/23 05:52 Schistocytes Slight A 10/11/23 05:52 Sodium 138 mmol/L (136-145) 10/12/23 05:35 Corrected Sodium TNP 10/12/23 05:35 Potassium 3.8 mmol/L (3.5-5.1) 10/12/23 05:35 Chloride 101 mmol/L (98-107) 10/12/23 05:35 Carbon Dioxide 26.1 mmol/L (21-32) 10/12/23 05:35 BUN 7 mg/dL (7-18) 10/12/23 05:35 Creatinine 0.87 mg/dL (0.55-1.02) 10/12/23 05:35 Est GFR (MDRD) Af Amer > 60 (>60) 10/12/23 05:35 Est GFR (MDRD) Non-Af > 60 (>60) 10/12/23 05:35 Glucose 95 mg/dL (65-99) 10/12/23 05:35 Calcium 9.1 mg/dL (8.5-10.1) 10/12/23 05:35 Corrected Calcium TNP 10/12/23 05:35 Magnesium 2.3 mg/dL (2.0-2.9) 10/11/23 05:52 Total Bilirubin 0.40 mg/dL (0.2-1.0) 10/12/23 05:35 AST 30 Units/L (15-37) 10/12/23 05:35 ALT 34 Units/L (12-78) 10/12/23 05:35 Alkaline Phosphatase 111 Units/L (46-116) 10/12/23 05:35 Total Protein 7.4 g/dL (6.4-8.2) 10/12/23 05:35 Albumin 3.6 g/dL (3.4-5.0) 10/12/23 05:35 Globulin 3.8 g/dL (2.5-4.5) 10/12/23 05:35 Albumin/Globulin Ratio 0.9 Ratio (1.1-2.1) L 10/12/23 05:35 Amylase 223 Units/L (25-115) H 10/09/23 04:20 Lipase 420 Units/L (16-77) H 10/09/23 04:20 Specimen Type Clean catch urine 10/08/23 16:51 Urine Color Yellow (YELLOW) 10/08/23 16:51 Urine Appearance Hazy (CLEAR) 10/08/23 16:51 Urine pH 5.0 (5.0 - 8.0) 10/08/23 16:51 Ur Specific [place] 1.025 (1.000-1.030) 10/08/23 16:51 Urine Protein 2+ (NEGATIVE) 10/08/23 16:51 Urine Glucose (UA) Negative (NEGATIVE) 10/08/23 16:51 Urine Ketones 3+ (NEGATIVE) 10/08/23 16:51 Urine Blood 1+ (NEGATIVE) 10/08/23 16:51 Urine Nitrite Negative (NEGATIVE) 10/08/23 16:51 Urine Bilirubin Negative (NEGATIVE) 10/08/23 16:51 Urine Urobilinogen Normal (NORMAL) 10/08/23 16:51 Ur Leukocyte Esterase 2+ (NEGATIVE) 10/08/23 16:51 Urine RBC 3-5 /HPF (0-3) A 10/08/23 16:51 Urine WBC 10-20 /HPF (0-5) A 10/08/23 16:51 Ur Squamous Epith Cells Moderate /HPF (NEGATIVE) 10/08/23 16:51 Amorphous Sediment Trace /HPF (NEGATIVE) 10/08/23 16:51 Urine Bacteria 2+ /HPF (NEGATIVE) 10/08/23 16:51 Ur Culture Indicated? Yes/culture set up 10/08/23 16:51 Infect Dis PCR Plus See scanned report 10/10/23 09:40 Reason For Visit: ACUTE PANCREATITIS, ABDOMINAL PAIN Discharge Date Discharge Date: 10/12/23 Discharge Diagnosis All Active Problems (Updated 10/09/23 @ 09:49 by Marjorie Collins) Recurrent pancreatitis (Acute) Constipation (Acute) UTI (urinary tract infection) (Acute) Pancreatitis (Acute) Nausea and vomiting (Acute) Anemia (Acute) Thrombocytopenia (Acute) Acute hypokalemia (Acute) Acute dehydration (Acute) Preventive medication therapy needed (Chronic) Plan of Treatment: Continue with present treatment and follow up plan. Pt is to keep follow up appointment as instructed and take medications as ordered. Discharge Medications Discharge Medications: ketorolac [From Toradol] Allergy (Severe, Verified 10/01/23 18:06) RASH levofloxacin [From Levaquin] Allergy (Verified 10/01/23 18:06) meropenem [From Merrem] Allergy (Verified 10/01/23 18:06) piperacillin [From Zosyn] Allergy (Verified 10/01/23 18:06) tazobactam [From Zosyn] Allergy (Verified 10/01/23 18:06) CONTINUE taking the following medications dicyclomine 20 mg tablet 20 mg PO TID PRN Abdominal Pain 10/08/23 [History] New Prescriptions amoxicillin 875 mg-potassium clavulanate 125 mg tablet 1 tab PO BID 7 days #14 tabs 10/12/23 [Rx] fluconazole 150 mg tablet 150 mg PO QDAY #2 tabs 10/12/23 [Rx] hydrocodone 5 mg-acetaminophen 325 mg tablet 1 tab PO Q8H PRN #30 tabs 10/12/23 [Rx] ondansetron 4 mg disintegrating tablet 4 mg PO Q8H PRN Nausea 30 days #30 tabs 10/12/23 [Rx] Discharge Disposition Assessment: No acute distress noted. Discharge Plan Discharge Plan Hospital Course: Patient is a 33 year old female admitted for acute pancreatitis and acute cystitis. Her hospital/treatment course included IVF, NPO diet that was gradually advanced, pain control, anti-emetics. Electrolytes were repleted. IV antibiotics. Rocephin. AIT urine positive for E coli and Enterococcus. Pt responded well to treatments, symptoms improved, and was able to tolerate po intake. Rx augmentin, diflucan, norco. Pt discharged in stable condition, instr ucted to follow up with pcp and referral made to [facility]-Dr Villarreal to be followed outpatient. Patient Disposition: 01 HOME, SELF-CARE Condition: Stable Health Concerns: Post Hospitalization: new medications and changes needed to prevent readmission or further decline. Pt educated and given instructions on all concerns. Care Plan Goals: Problem: Infection Goal: Temperature within normal limits. Resolved infection. Instructions: Follow provided instructions. Follow up with primary physician as directed. Contact primary care physician or report to the closest Emergency Room if condition worsens. Plan of Treatment: Continue with present treatment and follow up plan. Pt is to keep follow up appointment as instructed and take medications as ordered. Assessment: No acute distress noted. Prescriptions: New fluconazole 150 mg Tablet 150 mg PO QDAY Qty: 2 0RF Rx Instructions: Take 1 tab and in 3 days if symptoms are still present take another tab. amoxicillin-pot clavulanate 875-125 mg Tablet 1 tab PO BID 7 Days Qty: 14 0RF hydrocodone-acetaminophen 5-325 mg Tablet 1 tab PO Q8H MDD 4 PRNQty: 30 0RF Continued pantoprazole 40 mg tablet,delayed release (DR/EC) 40 mg PO BID dicyclomine 20 mg tablet 20 mg PO TID PRN (Reason: Abdominal Pain) ondansetron 4 mg tablet,disintegrating 4 mg PO Q8H PRN (Reason: Nausea) 30 Days Qty: 30 0RF Orders to Discharge Patient Discharge Orders: Discharge (Routine); Ordered 10/12/23 Ordered By: Finesse Santamaria Follow ups/Referrals Follow ups/Referrals: SANGEETA VILLARREAL [STAFF PHYSICIAN] - 10/19/23 3:00 pm ([place] office ) DHEERAJ MCCALL [Primary Care Provider] - 10/18/23 9:00 am ([phone] [facility].) Instructions Instructions: Acute Pancreatitis, [id number], Urinary Tract Infection, Adult, [id number], Abdominal Pain, Adult, [id number], [place] Diet Stand Alone Forms: Excuse From Work or School, Post Hospital Follow Up Care
== END 2023-10-12 11:05 | disposition home or self-care (01) ==
LOC: ER 14:38 → ICU 14:38 → MED/SURG 10-10 17:38
PROVIDERS: ADMIT Internal Medicine; ATTEND Internal Medicine
DX: B96.29 Other Escherichia coli [E. coli] as the cause of diseases classified elsewhere; K59.09 Other constipation; N30.00 Acute cystitis without hematuria; K21.9 Gastro-esophageal reflux disease without esophagitis; R10.84 Generalized abdominal pain; R11.2 Nausea with vomiting, unspecified; K85.90 Acute pancreatitis without necrosis or infection, unspecified; B95.2 Enterococcus as the cause of diseases classified elsewhere